=== PATIENT | female | born 1980 | race Caucasian/White ===

== ENCOUNTER 2016-02-20 12:56 | Inpatient (IN) | payer OTHER ==
[~2016-02-20] VITALS: Ht 152.4 cm; Wt 81.6 kg
[~2016-02-20 12:56] MED LIST: DULCOLAX5 MG PO; FOLIC ACID1 M1 PO; METHADONE HC10 MG/M1 PO; METHADONE10 MG/5 M2 PO; MIRALAX17 GM PO; ONDANSETRON ODT8 MG PO; PRENATAL TABLE1 EAC2 PO; PRENATAL1 TA2 PO; REMERON30 M1 PO; TOPAMAX100 MG PO; VISTARIL50 M1 PO; VISTARIL50 MG PO; VITAMIN D31000 UNI1 PO; WELLBUTRIN XL150 M2 PO; WELLBUTRIN XL150 MG PO; WELLBUTRIN XL300 M2 PO; WELLBUTRIN XL300 MG PO
--- NOTE | 2016-02-20 13:06 | NUR ---
PT STATES SHE IS STARTING TO FEEL SI SHE STATES YOU WERE SOBER FOR 8 MONTHS AND SHE HAS A 3 MONTH OLD BABY. SHE HAD TO MOVE IN WITH THE BABY'S FATHER BECAUSE INSURANCE WOULDN'T COVER THE LONG TERM HOUSE. STATES SHE STARTED DOING CRACK, BENZOS BECAUSE HE STILL GETS HIGH. PT STATES BABY IS WITH HER PARENTS. STATES HER PLAN IS TO OD WITH BENZOS AND METHADONE. COMMITS TO SAFETY WHILE IN THE ED.
--- NOTE | 2016-02-20 13:18 | ED PSYCHIATRIC COMPLAINT ---
History of Present Illness General Chief Complaint: Psychiatric Related Complaint Stated Complaint: +SI Source: patient Exam Limitations: no limitations Vital Signs & Intake/Output Vital Signs & Intake/Output Vital Signs Date Time Temp Pulse Resp B/P Pulse O2 O2 Flow FiO2 Ox Delivery Rate 02/19 2039 97.0 81 18 125/72 02/20 2028 97.0 81 125/72 02/19 1906 98.6 79 16 102/50 100 Room Air 02/19 1659 96.9 64 16 90/51 02/19 1541 96.2 76 16 90/51 97 Room Air 02/19 1306 97.7 87 20 104/65 98 Room Air Allergies Coded Allergies: trazodone (Intermediate, NIGHTMARES 05/30/15) aripiprazole (From Abilify) (STRANGE MENTAL FEELING 05/30/15) Triage Note: PT STATES SHE IS STARTING TO FEEL SI SHE STATES YOU WERE SOBER FOR 8 MONTHS AND SHE HAS A 3 MONTH OLD BABY. SHE HAD TO MOVE IN WITH THE BABY'S FATHER BECAUSE INSURANCE WOULDN'T COVER THE NURSING HOME HOUSE. STATES SHE STARTED DOING CRACK, BENZOS BECAUSE HE STILL GETS HIGH. PT STATES BABY IS WITH HER PARENTS. STATES HER PLAN IS TO OD WITH BENZOS AND METHADONE. COMMITS TO SAFETY WHILE IN THE ED. Triage Nurses Notes Reviewed? yes Onset: Abrupt Duration: constant Timing: recent history Severity: severe Severity Numbers: 10 : No Patient currently breastfeeds: No HPI: Patient is a 35-year-old female with a past medical history of benzodiazepine abuse and suicide ideation anxiety depression who presents emergency room for concerns of suicide ideation in which she states that she has been sober from benzodiazepines for approximately 8 months however in the last month she began to buy off the streets in which she is presently taking 50 mg a day. Patient recently gave to a 3-month-old and which currently patient is residing at the baby's father's residence because of an insurance issue with the previous residency of a [facility] house. She states she started doing crack and benzodiazepines to get high however patient states that she wants to overdose on pills to kill herself. Denies any homicidal ideation and visual hallucinations or auditory hallucinations. Denies any illness. Patient states that the 3-year -old daughter is currently at her parents house and is safe (AMANDA RUEDA) Reconcile Medications Butalb/Acetaminophen/Caffeine (Fioricet 50-300-40 MG Capsule) (Unknown Strength) CAPSULE 1-2 CAP PO PRN MIGRAINES (Reported) Escitalopram Oxalate (Lexapro) 20 MG TABLET 1 TAB PO DAILY MENTAL HEALTH ( Reported) Hydroxyzine Pamoate (Vistaril) 50 MG CAPSULE 2-3 CAP PO QPM ANXIETY/SLEEP ( Reported) Lisdexamfetamine Dimesylate (Vyvanse) 70 MG CAPSULE 1 CAP PO QAM ADD ( Reported) Methadone HCl 5 MG/5 ML SOLUTION 175 MG PO DAILY MENTAL HEALTH (Reported) (JULIETTE RODRÍGUEZ,HAILEY) Past History Travel History Traveled to [place] past 21 day No Medical History Any Pertinent Medical History? 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 Relation not specified for: FH: depression Hx Contributory? No (AMANDA RUEDA) Review of Systems Review of Systems Constitutional: Reports: no symptoms. EENTM: Reports: no symptoms. Respiratory: Reports: no symptoms. Cardiovascular: Reports: no symptoms. GI: Reports: no symptoms. Genitourinary: Reports: no symptoms. Musculoskeletal: Reports: no symptoms. Skin: Reports: no symptoms. Neurological/Psychological: Reports: see HPI, depressed. Hematologic/Endocrine: Reports: no symptoms. Immunologic/Allergic: Reports: no symptoms. All Other Systems: Reviewed and Negative (AMANDA RUEDA) Physical Exam Physical Exam General Appearance: no apparent distress, alert Neurological/Psychiatric: no motor/sensory deficits, awake, agitated, alert Appearance/Memory/Insight: appropriate appearance, appropriate insight, denies illness, disheveled Behavoir/Eye Contact/Speech: cooperative, normal speech, good eye contact Thoughts/Hallucinations: no apparent hallucination Comments: Well-developed well-nourished person in no acute distress HEENT: Normal EENT exam, extraocular motion intact, no nystagmus. Pupils equally round and reactive to light. Nose is atraumatic. External auditory canal and Tympanic membranes clear. Pharynx normal. No swelling or edema. Neck: Supple, no lymphadenopathy, normal range of motion without pain or tenderness Back: Nontender, no CVA tenderness. Full range of motion Cardiovascular: Regular rate and rhythms no murmurs, normal JVP Respiratory: Chest nontender. No respiratory distress. Breath sounds clear to auscultation bilaterally Abdomen: Soft, nontender nondistended, no appreciable organomegaly. Normal bowel sounds. No ascites Extremity: No edema, no calf tenderness to palpation, normal and equal pulses. Neuro: Alert oriented x3, motor sensory normal, cranial nerves II through XII grossly intact. Skin: No appreciable rash on exposed skin, skin is warm and dry. Psych: Mood and affect is normal, memory and judgment is normal. SAD PERSONS SAD PERSONS Response Value Depression/Hopelessness? yes 2 Previous Attempts/Psych Care yes 1 Excessive Ethanol/Drug Use? yes 1 Single//? yes 1 Organized/Serious Attempt yes 2 Total 7 SAD PERSONS Done? yes (GREZGORZ CUENCA,AMANDA) Progress Differential Diagnosis: dementia, drug intoxication, drug overdose, drug withdrawal, electrolyte abnormality, encephalitis, hypoglycemia, hypothyroidism, IC hem/mass/tumor, meningitis Plan of Care: Orders Procedure Date/time Status Regular Diet 02/20 B Active Vital Signs 02/19 2015 Active Inpt Psych Teach/Educate 02/19 2015 Active Nutritional Intake, Monitor 02/19 2015 Active Inpt Psych Auricular Acupunctu 02/19 2015 Active EKG 02/19 162 Active Lab Add-on Test 02/19 1620 Active Patient Data - inpatient psych 02/19 1617 Active Admit to inpatient psych 02/19 1617 Active THYROID STIMULATING HORMONE 02/19 1515 Complete Continuous Observation Monitor 02/19 1318 Complete URINE DRUGS OF ABUSE 02/19 1318 Complete URINE 02/19 1318 Complete URINALYSIS 02/19 1318 Complete ETHANOL 02/19 1318 Complete COMPREHENSIVE METABOLIC PANEL 02/19 1318 Complete CBC WITHOUT DIFFERENTIAL 02/19 1318 Complete ED CRISIS PSYCH CONSULT 02/19 1318 Active Intake & Output 02/19 1300 Complete Vital Signs 02/19 UNK Active Nursing Misc 02/19 UNK Active CIWA 02/19 UNK Active Alternative Nursing Therapy 02/19 UNK Active Activity/Ambulation 02/19 UNK Active Current Medications Sig/Amanuel Start time Last Medication Dose Stop Time Status Admin Escitalopram Oxalate 10 MG 0802/20 0800 AC (Lexapro) Methadone HCl 175 MG DAILY@0800 02/20 0800 UNVr (Dolophine) Multivitamins 1 TAB DAILY@02/20 0800 AC (Theragran Vitamins) Acetaminophen 650 MG Q6P PRN 02/19 1630 AC (Tylenol) Al Hydroxide/Mg 30 ML Q4-6 PRN PRN 02/19 1630 AC Hydroxide (Maalox Plus) Hydroxyzine HCl 50 MG Q6P PRN 02/19 1630 AC (Atarax) Lorazepam 2 MG Q2P PRN 02/19 1630 AC (Ativan) Magnesium Hydroxide 30 ML AT BEDTIME PRN 02/19 1630 AC (Milk Of Magnesia) Laboratory Tests 02/20/16 1515: Anion Gap 9, Estimated GFR > 60, BUN/Creatinine Ratio 11.1, Glucose 115 H, Calcium 9.3, Total Bilirubin 0.3, AST 24, ALT 33, Alkaline Phosphatase 87, Total Protein 6.8, Albumin 3.9, Globulin 2.9, Albumin/Globulin Ratio 1.3, TSH 0.523, CBC w Diff NO MAN DIFF REQ, RBC 4.58, MCV 80.2 L, MCH 26.4 L, RDW 17.4 H, MPV 7.2 L, Gran % 62.3, Lymphocytes % 31.6, Monocytes % 5.1, Eosinophils % 0.4, Basophils % 0.6, Absolute Granulocytes 5.0, Absolute Lymphocytes 2.6, Absolute Monocytes 0.4, Absolute Eosinophils 0, Absolute Basophils 0.1, PUBS MCHC 32.9 L , Serum Alcohol < 10.0 02/20/16 1500: Urine Opiates Screen < 100.00, Methadone Screen > 735 H, Barbiturate Screen > 800 H, Ur Phencyclidine Scrn 15.00, Amphetamines Screen > 1450 H, U Benzodiazepines Scrn 412 H, Urine Cocaine Screen > 1000 H, Urine Cannabis Screen < 5.00, Urinalysis LIGHT H, Urine Color YEL, Urine Clarity HAZY H, Urine pH 6.0, Ur Specific [place] >= 1.030, Urine Protein TRACE H, Urine Ketones TRACE H, Urine Nitrite NEG, Urine Bilirubin NEG@ICTO, Urine Urobilinogen 0.2, Ur Leukocyte Esterase NEG, Ur Microscopic SEDIMENT EXAMINED, Urine RBC RARE, Urine WBC 1-3 H, Ur Epithelial Cells FEW, Urine Mucus MANY H, Urine Hemoglobin TRACE-INTACT, Urine Glucose NEG, Urine Test NEGATIVE Crisis management team evaluated patient will be admitted to Inpatient Psychiatry for depression (AMANDA RUEDA) Initial ED EKG: NSR (HAILEY SEGOVIA MD) Departure Departure Disposition: STILL A PATIENT Condition: Critical Clinical Impression Primary Impression: Depression Referrals: PATIENT HAS NO PRIMARY CARE DR (PCP/Family) Referred to [facility] as new patient No Departure Forms: Customer Survey General Discharge Information Psych Admission Note Psychiatric Admission: I have seen and evaluated GIANNA BARKSDALE. I have also reviewed all the pertinent lab results and diagnostic results. GIANNA BARKSDALE will be admitted to our inpatient Psychiatric unit for treatment and care. (AMANDA RUEDA) PA/PATENT PROSECUTION ATTORNEY Co-Sign Statement Statement: ED Attending supervision documentation- [] I saw and evaluated the patient. I have also reviewed all the pertinent lab results and diagnostic results. I agree with the findings and the plan of care as documented in the PA's/PATENT PROSECUTION ATTORNEY's documentation. [X] I have reviewed the ED Record and agree with the PA's/PATENT PROSECUTION ATTORNEY's documentation. [] Additions or exceptions (if any) to the PAs/PATENT PROSECUTION ATTORNEY's note and plan are summarized below: [] (HAILEY SEGOVIA MD) Critical Care Note Critical Care Note Critical Care Time: 30-74 min (AMANDA RUEDA)
--- NOTE | 2016-02-20 13:30 | NUR ---
PT CALM AND COOPERATIVE, SITTER REMAINS AT DOORWAY, AMANDA CUENCA IN TO EVAL.
--- NOTE | 2016-02-20 14:21 | NUR ---
(1) valuables bag given to RN/Pod II and (2) clothes bags locked in closet.
--- NOTE | 2016-02-20 15:11 | NUR ---
URINE TRIO SENT TO LAB.
--- NOTE | 2016-02-20 15:20 | NUR ---
BLOODWORK SST, LAV.
[2016-02-20 15:24] LABS: ABSOLUTE BASOPHIL COUNT 0.1 /CUMM (0.0-0.2); ABSOLUTE EOSINOPHIL COUNT 0 /CUMM (0.0-0.7); ABSOLUTE LYMPH COUNT 2.6 /CUMM (1.2-3.4); ABSOLUTE MONOCYTE COUNT 0.4 /CUMM (0.10-0.60); BASOPHIL % 0.6 % (0.0-2.0); EOSINOPHIL % 0.4 % (0-5); GRANULOCYTE % 62.3 % (42.2-75.2); HEMATOCRIT 36.7 % (37-47); MEAN CORPUSCULAR HGB 26.4 PG (27.0-31.0); MEAN CORPUSCULAR HGB CONC 32.9 G/DL (33.0-37.0); MEAN CORPUSCULAR VOLUME 80.2 FL (81.0-99.0); MEAN PLATELET VOLUME 7.2 FL (7.4-10.4); PLATELET COUNT 243 /CUMM (130-400); RBC DISTRIBUTION WIDTH 17.4 % (11.5-14.5); RED BLOOD CELL CT 4.58 /CUMM (4.20-5.40); WHITE BLOOD CELL COUNT 8.1 /CUMM (4.8-10.8)
--- NOTE | 2016-02-20 16:40 | NUR ---
MST TO BEDSIDE TO DO EKG.
[2016-02-20] MEDS ORDERED: VYVANSE70 M1 PO (16:43)
[2016-02-20] MEDS ORDERED: LEXAPRO20 M1 PO (16:43)
[2016-02-20] MEDS ORDERED: FIORICET 50-301 EACH PO (16:44)
[2016-02-20] MEDS ORDERED: METHADONE H5 MG/5 M2 PO (16:45)
--- NOTE | 2016-02-20 16:55 | NUR ---
PT WALKING AROUND AREA WITH SITTERS ESCORTING, DENIES ANY NEEDS CURRENTLY, WILL CTM FOR BENZO WITHDRAWAL.
[2016-02-20 16:59] VITALS: BP 90/51
--- NOTE | 2016-02-20 17:01 | ED PSYCH CRISIS CONSULTATION ---
Crisis Consult Basic Assessment Date of Consult: 02/20/16 Responsible Person/Accompanied By: self Insurance Authorization: Insurance #1: Insurance name: [employer] Phone number: Policy number: [id number] Group number: Authorization number: ED Provider: Patient's ED Provider: AMANDA RUEDA Primary Care Physician: Patient's PCP: PATIENT HAS NO PRIMARY CARE DR PCP's Phone Number: Current Psychiatrist: Jazmin El APRN [phone] Chief Complaint: Psychiatric Related Complaint Patient's Quote: i'm feeling sad and really depressed since i relapsed Present Illness: Pt is a 35 yo female presenting to [place] ED this afternoon with reports of increased depression, SI and substance abuse. Pt reports 8 months sobriety prior to relapse of benzos and crack cocaine 3 weeks ago. Pt reports thoughts to o/d on benzos and not wake up. Pt has had [facility] since 2013/last being may 2015 for similiar SI and polysubstance abuse. Pt reports being prescribed lexapro, vyvanse, vistaril and methodone by jazmin El APRN [phone]. pt reports following may 2015 [facility] discharge she was [facility] then [facility] but reports insurance wouldn't cover any longer so she ended up back living with her children's father was is a substance abuser and she relapsed. she reports smoking crack cocaine and daily benzos 15-20mg/day past 3 weeks. Pt reports wanting help with her depression and to stop using drugs. She presents as depressed, OX3, lethargic though easy to engage and cooperative Patient's Address: [address] [place] [address] Other Phone Number: Who Do You Live With? Friend (father of younger children) Family/Informants Interviewed: collateral provided by mother Tomas [phone]. She reports Pt's 3 children (ages 15, 2 and 3 months0 are in her care and doing well. She reports DCF worker is tiburcio Contreras [phone]. Allergies - Coded Allergies: trazodone (Intermediate, NIGHTMARES 05/30/15) aripiprazole (From Abilify) (STRANGE MENTAL FEELING 05/30/15) Current Medications - Scheduled Medications Escitalopram Oxalate (Lexapro) 20 MG TABLET 1 TAB PO DAILY MENTAL HEALTH ( Reported) Entered as Reported by TERESA CORDOVA on 02/20/16 1643 Hydroxyzine Pamoate (Vistaril) 50 MG CAPSULE 2-3 CAP PO QPM ANXIETY/SLEEP ( Reported) Entered as Reported by TERESA CORDOVA on 05/30/15 2243 Lisdexamfetamine Dimesylate (Vyvanse) 70 MG CAPSULE 1 CAP PO QAM ADD ( Reported) Entered as Reported by TERESA CORDOVA on 02/20/16 1643 Methadone HCl 5 MG/5 ML SOLUTION 175 MG PO DAILY MENTAL HEALTH (Reported) Entered as Reported by TERESA CORDOVA on 02/20/16 1645 Scheduled PRN Medications Butalb/Acetaminophen/Caffeine (Fioricet 50-300-40 MG Capsule) (Unknown Strength) CAPSULE 1-2 CAP PO PRN MIGRAINES (Reported) Entered as Reported by TERESA CORDOVA on 02/20/16 1644 Laboratory Results: Laboratory Tests 02/20/16 1515: Anion Gap 9, Estimated GFR > 60, BUN/Creatinine Ratio 11.1, Glucose 115 H, Calcium 9.3, Total Bilirubin 0.3, AST 24, ALT 33, Alkaline Phosphatase 87, Total Protein 6.8, Albumin 3.9, Globulin 2.9, Albumin/Globulin Ratio 1.3, TSH Pending, CBC w Diff NO MAN DIFF REQ, RBC 4.58, MCV 80.2 L, MCH 26.4 L, RDW 17.4 H, MPV 7.2 L, Gran % 62.3, Lymphocytes % 31.6, Monocytes % 5.1, Eosinophils % 0.4, Basophils % 0.6, Absolute Granulocytes 5.0, Absolute Lymphocytes 2.6, Absolute Monocytes 0.4, Absolute Eosinophils 0, Absolute Basophils 0.1, PUBS MCHC 32.9 L , Serum Alcohol < 10.0 02/20/16 1500: Urine Opiates Screen < 100.00, Methadone Screen > 735 H, Barbiturate Screen > 800 H, Ur Phencyclidine Scrn 15.00, Amphetamines Screen > 1450 H, U Benzodiazepines Scrn 412 H, Urine Cocaine Screen > 1000 H, Urine Cannabis Screen < 5.00, Urinalysis LIGHT H, Urine Color YEL, Urine Clarity HAZY H, Urine pH 6.0, Ur Specific [place] >= 1.030, Urine Protein TRACE H, Urine Ketones TRACE H, Urine Nitrite NEG, Urine Bilirubin NEG@ICTO, Urine Urobilinogen 0.2, Ur Leukocyte Esterase NEG, Ur Microscopic SEDIMENT EXAMINED, Urine RBC RARE, Urine WBC 1-3 H, Ur Epithelial Cells FEW, Urine Mucus MANY H, Urine Hemoglobin TRACE-INTACT, Urine Glucose NEG, Urine Test NEGATIVE Past History Past Medical History Neurological: NONE, migraine EENT: NONE Cardiovascular: NONE Respiratory: NONE Gastrointestinal: NONE, constipation Hepatic: NONE Renal: NONE Musculoskeletal: NONE Psychiatric: depression, insomnia, opioid dependence, substance abuse, METHADONE MAINTENANCE Endocrine: NONE Blood Disorders: NONE Cancer(s): NONE 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 Physical Limitations (Interventions): None identified Psychiatric Treatment History Psych Treatment Psychiatric Treatment Yes Inpatient Treatment Yes Outpatient Treatment Yes Location of Treatment [place] [id number] since 2013 Reason for Treatment depression/SI/polysubstance abuse Response to Treatment most recently had 8 mos sobriety Diagnosis by History: Depression, polysubstance abuse Substance Use/Abuse History Drug Use/Abuse 1 Substances Used/Abused Yes Substance Used/Abused Benzodiazepines Last Used today How much used/taken 15-20mg/day How often daily For how long past 3 weeks Drug Use/Abuse 2 Substances Used/Abused Yes Substance Used/Abused Cocaine Drug Use/Abuse 3 Substances Used/Abused Yes Substance Used/Abused Prescribed Opiates Last Used today How much used/taken 175 mg How often daily Substance Abuse Treatment Substance Abuse Treatment Past Substance Abuse [place] Yes Inpatient Treatment Yes Outpatient Treatment Yes Location of Treatment most recent [facility] Response to Treatment 8 months of recent sobriety until having to move back in with who is a drug user Comments: reports 15 - 20 mgs benzos past 3 weeks. also reports recent crack use. Current Mental Status Mental Status Orientation: Person, Place, Situation Affect: Depressed Speech: WNL Neuro-vegetative: Concentration Poor, Energy Decreased, Helpless, Loss of Interest, Sleep Disturbance Appearance Appearance- Dress/Hygiene: hospital gown. laying in bed with hands shielding her eyes because she stated lights were giving her a headache. Behaviors Thought Process: WNL Thought Content: WNL Memory: WNL Insight: Fair SI/HI Risk Assessment Past Suicidal Ideation/Attempts Yes Current Suicidal Ideation/Att Yes Past Homicidal Ideation/Att: No Current Homicidal Ideation/Attempts No Degree of Intent: Thoughts/No Intent Danger To: Self Gravely Disabled: Inability, Poor Impulse Control, Poor Judgment Risk Factors: high anxiety/distress, history of suicide atmpts, SA/MH hospitalized, substance abuse, poor impulse control Lethality Ratin PTSD Checklist PTSD Done? 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 Departure Disposition Psych Medical Clearance Date: 02/20/16 Medically Cleared at: 1600 Time Started: 1605 Time Ended: 1645 Psychiatrist Consulted: Yobany Pham MD Date Disposition Established: 02/20/16 Time Disposition Established: 1649 Plan for Disposition - Modality: Inpatient Psychiatry Facility: [facility] Rationale for Disposition: PT reports SI by benzo o/d. Pt has a hx of attempts. Pt was sober 8 months prior to relapse on benzos and cocaine. Type of IP Admission: Voluntary Referrals PATIENT HAS NO PRIMARY CARE DR (PCP/Family)
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
--- NOTE | 2016-02-20 19:08 | NUR ---
ATTEMPTED TO CALL REPORT, PER [facility] THEY ARE IN REPORT ADN WILL CALL BACK IN APPROX 20 MINUTES
--- NOTE | 2016-02-20 19:32 | NUR ---
ATTEMPTED TO CALL REPORT AGAIN, [facility]NAL[facility] STILL IN THEIR REPORT, WILL ATTEMPT AGAIN SHORTLY.
--- NOTE | 2016-02-20 19:54 | NUR ---
REPORT GIVEN TO FLORI BREWER NOW
[2016-02-20 20:28] VITALS: BP 125/72
[2016-02-20 20:39] VITALS: BP 125/72
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
[2016-02-21] VITALS (8 sets, daily range): BP systolic 114–132; BP diastolic 71–87
--- NOTE | 2016-02-21 09:46 | NUR ---
PT IS DEMANDING TO RECEIVE "MY ATIVAN".SHE PROCEEDED TO GO FROM ONE STAFF MEMBER TO ANOTHER TO GET THE ANSWER SHE WANTED. IT WAS EXPLAINED TO PT THAT HER TOUR DRIVER WILL BE MEETING WITH HER TODAY..HER FIRST DAY HERE..TO DISCUSS HER MEDS.SHE IS BEING [facility] DID NOT INDICATE THE NEED FOR PRN ATIVAN. PT DEMANDED TO "FILE A GRIEVANCE" SO A CALL WAS PLACED TO PT SAFETY
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
--- NOTE | 2016-02-21 13:51 | CPS MD/APRN INITIAL ASSE PSYCH ---
Psychiatric Admission Accounting System Expert's Note Reviewed: Yes Patient Seen and Examined: Yes Identifying Information: Patient is a 35 year old, single, female. Chief Complaint: "I've been depressed and sad since relapsing 3 weeks ago." Reaction to Hospitalization: "I feel safe here, and have some hope that maybe I'll get things right." History of Present Illness Onset of Illness: Patient is a 35-year old female with a history of multiple prior inpatient psychiatric hospitalizations (last hospitalized on [facility] in May 2015), MDD, Opiate use disorder (on methadone maintenance), Anxiolytic use disorder, Stimulant use disorder, who presented to ED on 02/20/16 reporting increased depression, hopelessness, helplessness, and suicidal ideation in the context of a 3 week relapse on Xanax, Klonopin and crack/cocaine. She reported primary stressors include unstable housing (currently living with ex boyfriend in [place], [place] who using substances and served as a trigger for relapse) and substance use. Following [facility] admission in May 2015, she had been placed at [facility] but reported that her insurance wouldn't cover [facility] which resulted in the patient resuming living with her ex, which led to relapse. Patient reported using up to six 2mg xanax bars daily, and Klonopin (dose and frequency unknown) daily which she had been buying off the street. She reported smoking crack/cocaine once over the last few weeks. She reported motivation to stop using substances so she could "get my sh*t together for my kids." Patient identified her children as protective factors to her sobriety and safety. She denied suicidal ideation, plans and intent on encounter. Circumstances Leading to Admission: Relapse on benzodiazepines (bought off the street) and crack/cocaine; living with ex; unstable housing. Problem(s) Justifying Need for Admission: +SI and thoughts to overdose on benzodiazepines. Past Psychiatric History Past Diagnosis(es)- if any: MDD Bipolar Disorder Hx overdose on benzodiapines ADHD (per patient report) Opioid use disorder, severe (on methadone maintenance) Anxiolytic use disorder, severe Stimulant use disorder, moderate Past Precipitating Factors- if any: substance abuse, housing problems, DCF, limited supports, multiple prior inpatient psychiatric hospitalizations, poor impulse control, treatment nonadherence. - Include inpatient and outpatient treatment Treatment History: Multiple prior inpatient psychiatric hospitalizations: [facility] HAL El APRN (#[phone]) History of Suicide Attempts or Gestures Patient reported a history of suicide attempts, but did not elaborate on method or dates of last attempts. Substance Abuse History: Inpatient Substance Abuse Treatment [facility] Outpatient[facility]Rehab [facility] Alcohol and Drug Treatment [facility] Patient reported daily benzo abuse x last 3 weeks. Reported using approx 6 bars of 2mg Xanax daily and an unknown amount of Klonopin daily which she had bought off the street. She denied a history of withdrawal seizures. She reported using crack/cocaine once over the last 3 weeks. She denied use of alcohol. She reported using Fioricet for migraines, denied overusing this, however utox showed high result for barbs. Patient is additionally on Methadone 175mg daily from [facility]. Allergies: Coded Allergies: trazodone (Intermediate, NIGHTMARES 05/30/15) [facility]razole ([facility] (STRANGE MENTAL FEELING 05/30/15) Home Med List: Vyvanse 70mg every morning Lexapro 20mg every morning Methadone 175mg daily Vistaril 50mg tabs, take 2-3 tabs at HS - Include any medical condition(s) that may - impact the patient's recovery/remission Past Medical History: Patient reported history of migraine. Past History Medical History Neurological: NONE, migraine EENT: NONE Cardiovascular: NONE Respiratory: NONE Gastrointestinal: NONE, constipation Hepatic: NONE Renal: NONE Musculoskeletal: NONE Psychiatric: depression, insomnia, opioid dependence, substance abuse, METHADONE MAINTENANCE Endocrine: NONE Blood Disorders: NONE Cancer(s): NONE RADIATION OFFICER/Reproductive: NONE History of MRSA: No History of VRE: No History of CDIFF: No Isolation History: Standard Surgical History Surgical History: none ( x 2), Psychiatric Family/Social Hx Family History Psychiatric Illness: Patient reported the following family psychiatric illness: Mother- anxiety 15y/o son - ADHD and managed on Concerta Paternal and maternal aunts - depression Substance Use: Patient reported a history of alcohol use disorder in her paternal and maternal aunts. Suicides: Patient denied a known history of suicide attempts within her family. Social History Living Situation: Patient reported currently living with her ex in [place], [place], in his apartment. Significant Relationships (family/friends): Patient identified her parents, and three children as her primary supports. Education: Patient reported highest level of education is 10th grade. She denied earning GED. Vocation/Occupation: Patient reported she has been unemplyed x last 2 years. Legal: Per [place] Judicial site, the patient has multiple legal charges: 2012 - Violation of protective order 2012 - Violation of conditional release (2nd degree) 2009 - [facility] 6th degree 2008 - Disorderly conduct 2005 - [facility] 6th degree Healthly Behaviors Screening Tobacco Screening Tobacco Use from ED Docu: Current Daily Use Daily Tobacco Use Amount/Type: => 5 Cigarettes daily - If tobacco counseling indicated - the following topics are required. - #1 Recognizing dangerous situations. - #2 Coping Skills. - #3 Basic information about quitting. Status of Tobacco Cessation Counseling: #1, #2 AND #3 Completed Cessation Med Status: Nicotine Patch Ordered Alcohol Screening - ETOH screen POS if BAL >=80 or Audit-C>= M4/F3 Audit-C Score from Diag Assess: 0 Blood Alcohol Level: Laboratory Tests 02/19 1515 Toxicology Serum Alcohol (<10 MG/DL) < 10.0 Alcohol Use Screening Results: Neg per Audit C &/or BAL - If ETOH counseling indicated - the following topics are required. - #1 Express concern about the patient's - drinking at unhealthy levels, include informing - of national norms for moderate drinking: - men <= 14 drinks/week, max 4 drinks/occasion - women <= 7 drinks/week, max 3 drinks/occasion - #2 Providing feedback, including linking alcohol to - negative physical effects (liver injury, hypertension) - negative emotional effects (relationship problems and - depression) - negative occupational consequences (reduced work - performance) - #3 Advising the patient to abstain from alcohol or - to drink below national norms for moderate drinking - (as listed above). Status of ETOH Use Counseling: N/A B/C NO ETOH Use Metabolic Screening - Screen if on a Neuroleptic Medication - Metabolic screening should include: - Blood Pressure, BMI, Glucose or Hgb A1c, & a - Lipid profile from within the past 365 days. Metabolic Screening ([X]) Not Applicable, patient not on a neuroleptic. OR () Patient on a neuroleptic(s) . Enter below results for Glucose or Hemoglobin A1C, and lipid panel if obtained during the last 365 days. BMI: 35.100 Blood Pressure: 132/79 Laboratory Results (If applicable): Exam and Plan Mental Status Examination Ambulation Status: Steady and independent. Appearance: Disheveled. Wearing t-shirt and sweatpants. Hair pulled back into messy bun. Sitting with blanket wrapped around her. Attitude towards examiner: Cooperative Psychomotor activity: Fidgety, restless in seat. Behavior: Fidegty, restless. Quality of speech: Normal in rate, tone and volume. Affect: Constricted Mood: "Sad and anxious" Suicidal Ideation: Pt denied Homicidal Ideation: Pt denied Hallucinations: Pt denied Paranoid/Delusional Material: No evidence Difficulties with thought organization: None evident Insight: Limited Judgment: Limited Orientation: A&Ox4. Cognition: WNL Memory Function: Grossly intact Estimate of intellectual functioning: Average Assets/Strengths Patient Identified Assets/Strengths: Supportive parents, motivated for treatment. Impression/Plan Impression and Plan: Patient is a 35 y/o single, female, a mother of three who has a history of multiple prior inpatient psychiatric hospitalizations and extensive substance abuse treatment. Presented to ED with suicidal ideation, hopelessness and helplessness in the context of relapsing three weeks ago on benzos and crack/cocaine. Utox was (+) for cocaine, amphetamines, BZD, barbit, methadone (she is on methadone maintenance at [facility]). She expressing desire for benzo detox and dual dx treatment. She shows limited insight and judgement into psychiatric symptoms and substance use. Reported she had been doing well on current psychotropic medications including Vyvanse 70mg daily, prior to relapsing. It appears relapse was complicated by unstable housing and inability to transition to [facility] due to insurance issue. Unclear if patient's current psychotropic regimen is efficacious on patient's mood. There is no evidence of underlying psychotic procress, and symptoms appear predominently depressed and anxious. 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 Patient scoring low on CIWA protocol and VSS. Given patient's report of high dose benzo use over last 3 weeks, will begin Ativan taper and continue to monitor withdrawal Q4Hrs w/awake on CIWA. - Include all active medical diagnosis that require tx DSM 5 Diagnosis(es): Major Depressive Disorder R/O Bipolar disorder Anxiolytic use disorder, severe Opiate use disorder, severe (on methadone maintenance) Crack/cocaine use disorder, moderate - Initial Tx Plan for Active Psych & Medical Conditions Treatment Plan: 1. Patient will be monitored on the unit for safety, mood, suicidal ideation, and benzodiazepine withdrawal. 2. Start Ativan taper for benzo detox. Monitor patient on CIWA every 4Hrs w/ awake for benzo withdrawal. Utilize prn Ativan for withdrawal. 3. Additional information is needed from collaterals, including her parents, and outpatient [facility] El. Will obtain BETSEY to speak to her. 4. Anticipate once clinically stable, that the patient will be discharged to a stable environment and be referred to Dual Dx IOP or inpatient substance abuse rehab level of care. 5. H&P per hospitalist team. - Factors that would help patient function - in a less restrictive setting. Factors: Alleviation of suicidal ideation. Mood stabilization. Benzo detox.
--- NOTE | 2016-02-21 15:01 | Cons- Medical ---
General Information and HPI Consulting Request Date of Consult: 02/21/16 Requested By: MOIRA BLACKWELL MD Reason for Consult: Medical H&P Source of Information: patient, old records Exam Limitations: no limitations History of Present Illness: 35-year-old female past medical history of substance abuse and chronic opiate dependence on methadone, depression, migraine and suicidality in the past. She is here she says because she relapsed recently and is on a benzo taper and is dealing with depressive symptoms. Right now she is complaining of a migraine and says the light bothers her. She says this feels like her usual migraine. There is no fever, no neck stiffness, she is slightly nauseous but hasn't vomited. She says this happens to her when she is withdrawing. She was initially requesting Fioricet but I explained to her the controlled substance policy and she is willing to try some Imitrex. She has tried Imitrex in the past with limited results. She takes about 2-3 Fioricets a month she says. Allergies/Medications Allergies: Coded Allergies: trazodone (Intermediate, NIGHTMARES 05/30/15) aripiprazole (From [facility]) (STRANGE MENTAL FEELING 05/30/15) Home Med List: Butalb/Acetaminophen/Caffeine (Fioricet 50-300-40 MG Capsule) (Unknown Strength) CAPSULE 1-2 CAP PO PRN MIGRAINES (Reported) Escitalopram Oxalate (Lexapro) 20 MG TABLET 1 TAB PO DAILY MENTAL HEALTH ( Reported) Hydroxyzine Pamoate (Vistaril) 50 MG CAPSULE 2-3 CAP PO QPM ANXIETY/SLEEP ( Reported) Lisdexamfetamine Dimesylate (Vyvanse) 70 MG CAPSULE 1 CAP PO QAM ADD ( Reported) Methadone HCl 5 MG/5 ML SOLUTION 175 MG PO DAILY MENTAL HEALTH (Reported) Current Medications: Current Medications Sig/Amanuel Start time Last Medication Dose Route Stop Time Status Admin Acetaminophen 650 MG Q6P PRN 02/19 1630 AC PO Al Hydroxide/Mg 30 ML Q4-6 PRN PRN 02/19 1630 AC Hydroxide PO Escitalopram Oxalate 10 MG 0800 02/20 0800 AC 02/20 PO 0815 Hydroxyzine HCl 50 MG Q6P PRN 02/19 1630 AC PO Lorazepam 0.5 MG 0800,2200 02/24 0800 AC PO 02/24 2201 Lorazepam 0.5 MG Q6 02/23 0600 AC PO 02/23 2359 Lorazepam 1 MG Q8 02/22 0600 AC PO 02/22 220 Lorazepam 1 MG 0800,1200,1600,2000 02/21 0800 AC PO 02/21 2001 Lorazepam 1.5 MG 1430,2200 02/20 1430 AC 02/20 PO 02/20 2201 1421 Lorazepam 2 MG Q2P PRN 02/19 1630 AC 02/19 PO 2254 Lorazepam 1 MG Q2P PRN 02/19 1630 AC 02/19 PO 2037 Magnesium Hydroxide 30 ML AT BEDTIME PRN 02/19 1630 AC PO Methadone HCl 175 MG DAILY@02/20 0800 AC 02/20 PO 0840 Multivitamins 1 TAB DAILY@0800 02/20 0800 AC 02/20 PO 0815 Nicotine 7 MG 0802/21 08 AC TOP Sumatriptan Succinate 25 MG ONCE ONE 02/20 1445 DC PO 02/20 1446 Review of Systems Review of Systems Constitutional: Denies: no symptoms, chills, diaphoresis. Cardiovascular: Denies: no symptoms, chest pain, edema. Respiratory: Denies: no symptoms, cough, hemoptysis, orthopnea. Genitourinary: Denies: discharge, dysuria. Neurological/Psychological: Reports: no symptoms, headache. All Other Systems: Reviewed and Negative Past History Travel History Traveled to [place] past 21 day No Medical History Neurological: NONE, migraine EENT: NONE Cardiovascular: NONE Respiratory: NONE Gastrointestinal: NONE, constipation Hepatic: NONE Renal: NONE Musculoskeletal: NONE Psychiatric: depression, insomnia, opioid dependence, substance abuse, METHADONE MAINTENANCE Endocrine: NONE Blood Disorders: NONE Cancer(s): NONE TELETYPEWRITER INSTALLER/Reproductive: NONE Surgical History Surgical History: Family History Relations & Conditions If Any: FATHER (DM). Relation not specified for: FH: depression Psychosocial History Where Do You Live? Home Who Do You Live With? self Services at Home: None Primary Language: [place] ETOH Use: denies use Illicit Drug Use: denies illicit drug use Other Social History: She has 3 children one aged 15 one age 2 and one aged 3 months. She's had 3 C- sections most recently on November 06. She says she used to be a heavy drug user but now is on methadone maintenance treatment program. Functional Ability ADLs Independent: dressing, eating, toileting, bathing. Ambulation: independent IADLs Independent: shopping, housework, finances, food prep, telephone, transportation. Exam & Diagnostic Data Last 24 Hrs of Vital Signs/I&O Vital Signs Date Time Temp Pulse Resp B/P Pulse O2 O2 Flow FiO2 Ox Delivery Rate 02/20 1232 75 132/79 02/20 1224 75 132/79 02/20 0813 98.0 75 114/75 02/20 0811 98.0 75 114/75 02/19 203 97.0 81 18 125/72 02/20 2028 97.0 81 125/72 02/19 1906 98.6 79 16 102/50 100 Room Air 02/19 1659 96.9 64 16 90/51 02/19 1541 96.2 76 16 97 Room Air Intake & Output 02/20 1600 02/20 0800 02/20 0000 Intake Total Output Total Balance Patient 180 lb Weight Physical Exam General Appearance: well developed/nourished, alert, awake, anxious Head: atraumatic, normal appearance Eyes: Bilateral: normal appearance, PERRL, EOMI. Ears, Nose, Throat: normal pharynx, normal ENT inspection Neck: supple, full range of motion Respiratory: normal breath sounds, chest non-tender Cardiovascular: regular rate/rhythm Gastrointestinal: normal bowel sounds, soft, non-tender, no organomegaly Back: normal inspection, normal range of motion Extremities: normal inspection, normal capillary refill, normal range of motion, no edema Neurologic/Psych: no motor/sensory deficits, awake, alert, oriented x 3, normal gait, electric organ assembler and checker II-XII nml as tested, motor/sensory deficits Other Physical Findings: My limited fundus exam, the disc margins appear sharp. Last 24 Hrs of Labs/Charanjit: Laboratory Tests 02/20/16 1515: Anion Gap 9, Estimated GFR > 60, BUN/Creatinine Ratio 11.1, Glucose 115 H, Calcium 9.3, Total Bilirubin 0.3, AST 24, ALT 33, Alkaline Phosphatase 87, Total Protein 6.8, Albumin 3.9, Globulin 2.9, Albumin/Globulin Ratio 1.3, TSH 0.523, CBC w Diff NO MAN DIFF REQ, RBC 4.58, MCV 80.2 L, MCH 26.4 L, RDW 17.4 H, MPV 7.2 L, Gran % 62.3, Lymphocytes % 31.6, Monocytes % 5.1, Eosinophils % 0.4, Basophils % 0.6, Absolute Granulocytes 5.0, Absolute Lymphocytes 2.6, Absolute Monocytes 0.4, Absolute Eosinophils 0, Absolute Basophils 0.1, PUBS MCHC 32.9 L , Serum Alcohol < 10.0 02/20/16 1500: Urine Opiates Screen < 100.00, Methadone Screen > 735 H, Barbiturate Screen > 800 H, Ur Phencyclidine Scrn 15.00, Amphetamines Screen > 1450 H, U Benzodiazepines Scrn 412 H, Urine Cocaine Screen > 1000 H, Urine Cannabis Screen < 5.00, Urinalysis LIGHT H, Urine Color YEL, Urine Clarity HAZY H, Urine pH 6.0, Ur Specific [place] >= 1.030, Urine Protein TRACE H, Urine Ketones TRACE H, Urine Nitrite NEG, Urine Bilirubin NEG@ICTO, Urine Urobilinogen 0.2, Ur Leukocyte Esterase NEG, Ur Microscopic SEDIMENT EXAMINED, Urine RBC RARE, Urine WBC 1-3 H, Ur Epithelial Cells FEW, Urine Mucus MANY H, Urine Hemoglobin TRACE-INTACT, Urine Glucose NEG, Urine Test NEGATIVE Assessment/Plan Assessment/Plan 35-year-old female with chronic opiate dependence, substance abuse and depression and migraines here with acute benzo withdrawal. Treatment as per psychiatry. Use Imitrex 25 mg orally for migraine headache. I confirmed with pharmacy that it's safe to use that. Treatment of depressive symptoms per psychiatry. Problem List: 1. Substance abuse 2. Depression 3. Heroin abuse Consult Acknowledgment - Thank you for your consult request.
--- NOTE | 2016-02-21 15:01 | NUR ---
PT SPENT MOST OF TODAY IN BED. SHE WAS MED SEEKING AT TIMES AND IRRITABLE. SHE C/O HEADACHE AND WAS SEEN BY DR RODGERS FOR H&P.PT DENIES ANY SUICIDAL THOUGHTS OR THOUGHTS OF SELF HARM AT THIS TIME
--- NOTE | 2016-02-21 16:26 | SOCIAL WORKER PROG NOTE PSYCH ---
Social Work Progress Note Progress Note Met with patient for the first time today. We met briefly and patient offerred no complaints at present. She denied any SI/HI/AH/VH. She reported feeling tired and was sleeping off and on throughout the day. She appeared to be isolating on the unit, not socializing with peers and not attending groups. I did not mention arranging a family meeting today with patient due to short encounter and patient appearing somewhat sedated and lethargic during our meeting.
--- NOTE | 2016-02-21 21:21 | NUR ---
PT IS STABLE WITH FLAT AFFECT. PT IS ISOLATIVE AND WITHDRAWN TO PT ROOM AND HAS BEEN SLEEPING THE ENTIRE SHIFT-- OOB FOR VS/MEDS/DINNER. PT REPORTS FEELINGS OF ANXIETY AND A HEADACHE BUT HAS NOT SCORED ON CIWA THIS SHIFT. PT DID NOT ATTEND WRAP UP GROUP. MINIMAL TO NO INTERACTION WITH PEERS/ONLY INTERACTS WITH STAFF WHEN REQUESTING MEDICATIONS. VS ARE STABLE AND PT DENIES ANY SI/HI TO THIS MHW.
[2016-02-22] VITALS (8 sets, daily range): BP systolic 114–141; BP diastolic 58–75
--- NOTE | 2016-02-22 05:31 | NUR ---
PATIENT SLEPT ALL NIGHT.
--- NOTE | 2016-02-22 14:24 | NUR ---
PT IS VERY MED FOCUSED.HER GOAL IN GROUP WAS TO TALK TO SMEONE ABOUT HER MEDS. SHE ASKED NUMEROUS TIMES IF SHE WAS DUE FOR "MY ATIVAN"..SHE IS SOMATIC AND IS ENCOURAGED TO FOCUS ON EFFECTIVE WAYS TO COPE.PT DENIES ANY SUICIDAL THOUGHTS
--- NOTE | 2016-02-22 15:45 | CP SOUTH PROGRESS NOTE PSYCH ---
Psych (Inpt) Progress Note Progress Note Include the following elements, when applicable: Involvement in the active treatment of the patient with behavioral observations of the patient and the patient's response to the treatment. Review of the ongoing treatment process in the context of the treatment plan. Indication of how multi-disciplinary staff members are carrying out the treatment plan. Plans for future interventions and recommendations for revision of the treatment plan. Liaison with other physicians/providers. Progress Note: Medication list reviewed. Case and treatment plan discussed in team meeting. Patient seen at 1:18 pm. She was asleep in her room but was easily awakened and met with me in office. Complains of nausea and I will order Zofran prn. Wants Vyvanse restarted. I explained that she is on multiple controlled medications and we will hold off on it. Keeps her eyes closed for the most part, complaining of light sensitivity and headache. States she took Tylenol. Very argumentative about Vyvanse. Mood: "very aggravated." Sad 09/02. Anxiety . Feels hopeless, helpless, worthless and guilty. Reports SI, "just wanting to take a bunch of benzos, fall asleep and not wake up." Gives a safety promise for here. Denies HI, AH, VH and PI. Ox3 except gave the date as 02/21/16. Reports sleeping but being very tired off the Vyvanse. Appetite: okay, episodically hungry. Energy: none. IMPRESSION: Slow progress. Continue present treatment plan. Similar to prior presentations. Has no insight into the magnitude of her substance abuse, its risks and sequelae.
--- NOTE | 2016-02-22 21:53 | NUR ---
PT IS ISOLATIVE IN ROOM SLEEPING FOR MOST OF THE SHIFT. PT DID NOT ATTEND WRAP UP OR AA. PT MOOD IS STABLE WITH A FULL RANGE AFFECT. PT CAN BE A LITTLE DEMANDING WITH MEDS AND WANTS THEM WHEN SHE ASKS FOR THEM. PT DENIES SI. NO CIWA SCORE
--- NOTE | 2016-02-23 04:48 | NUR ---
WENT TO BED VERY EARLY SLEPT THROUGH.
[2016-02-23 07:39] VITALS: BP 138/66
[2016-02-23 07:47] VITALS: BP 138/66
--- NOTE | 2016-02-23 10:44 | SOCIAL WORKER PROG NOTE PSYCH ---
Social Work Progress Note Progress Note Met with patient today to explore placement options, pt peseverating over vivance and how she wants to get back on those meds. Pt states she is interested in going to [facility] in [place], I called to inquire about screening and admissions there is a 3 month wait list. the fax # is [phone] if this of interest she will need a PPD and all the other usual documentation faxed/ I faxed everything but the PPD. Pt had her eyes closed and was rambling, and became forgetful during our conversation. Referrals will be made to [facility] and [facility] pt given information to contact Roni at [facility] in [place]. All the above places do not have beds until next week, possibly Friday. Approached the idea of an overflow fdc, and pt states if she has to go to a fdc she would return to her children fathers home, then offering this would not be a great plan due to his consistent drug use.
[2016-02-23 12:15] VITALS: BP 122/79
[2016-02-23 12:55] VITALS: BP 122/79
--- NOTE | 2016-02-23 13:26 | CP SOUTH PROGRESS NOTE PSYCH ---
Psych (Inpt) Progress Note Progress Note Include the following elements, when applicable: Involvement in the active treatment of the patient with behavioral observations of the patient and the patient's response to the treatment. Review of the ongoing treatment process in the context of the treatment plan. Indication of how multi-disciplinary staff members are carrying out the treatment plan. Plans for future interventions and recommendations for revision of the treatment plan. Liaison with other physicians/providers. Progress Note: [I discussed this patient's progress to date, current mental status, treatment process in the context of the treatment plan, and discharge planning with staff/ team in the daily morning inpatient team meeting. I also met with the patient myself in individual session.] SUBJECTIVE: "I want my Vyvanse, why won't you give it to me?" OBJECTIVE: Current Medications Sig/Amanuel Start time Last Medication Dose Route Stop Time Status Admin Acetaminophen 650 MG Q6P PRN 02/19 1630 AC 02/22 PO 0803 Al Hydroxide/Mg 30 ML Q4-6 PRN PRN 02/19 1630 AC Hydroxide PO Escitalopram Oxalate 10 MG 02/20 0800 AC 02/22 PO 0803 Hydroxyzine HCl 50 MG Q6P PRN 02/19 1630 AC 02/22 PO 1135 Lorazepam 0.5 MG 0800,0 02/24 0800 AC PO 02/24 2201 Lorazepam 0.5 MG Q6 02/23 0600 AC PO 02/23 2359 Lorazepam 1 MG Q8 02/22 0600 AC 02/22 PO 02/22 2201 0712 Lorazepam 1 MG 0800,1200,1600,02/21 0800 DC 02/21 PO 02/21 2001 1935 Lorazepam 2 MG Q2P PRN 02/19 1630 AC 02/19 PO 2254 Lorazepam 1 MG Q2P PRN 02/19 1630 AC 02/19 PO 2037 Magnesium Hydroxide 30 ML AT BEDTIME PRN 02/19 1630 AC PO Methadone HCl 175 MG DAILY@02/20 0800 AC 02/22 PO 0559 Multivitamins 1 TAB DAILY@02/20 0800 AC 02/22 PO 0803 Nicotine 7 MG 02/21 0800 AC 02/22 TOP 0803 Ondansetron HCl 4 MG Q8P PRN 02/21 1330 AC 02/22 PO 1017 Tuberculin PPD 0.1 ML ONE TIME ONE 02/22 1230 DC ID 02/22 1231 Vital Signs Date Time Temp Pulse Resp B/P Pulse O2 O2 Flow FiO2 Ox Delivery Rate 02/22 1255 84 122/79 02/22 1215 84 122/79 02/22 0747 97.5 95 138/66 02/22 0739 97.5 95 138/66 02/21 203 97.9 84 141/75 02/21 2029 97.9 84 141/75 02/21 1611 95 133/72 02/21 1609 95 133 ASSESSMENT: VM was left for Chhaya El APRN (pt's outpatient psychiatric GAS REVERSER), requesting to call back this web content writer for clinical collateral on the patient. Awaiting return phone call. Met with the patient today, who was A&Ox4. She presented disheveled. Speech was mumbled. Eye contact was appropriate. She perseverated on wanting and needing Vyvanse. This web content writer reviewed with the patient that on admission her Utox (+) for cocaine and amphetamine in addition to multiple substances. Psychoeducation was provided to the patient on combined use of prescribed and illicit substances and the risks of combining Vyvanse with illicit substances such as cocaine, including cardiac risks and . The patient verbalized understanding of education, however minimized the risks of polysubstance use, and showed poor judgement and insight into her pattern of substance use. This web content writer gentley explained to the patient that vyvanse would not be prescribed while she is hospitalized on unit, and offered alternative options such as Strattera and Wellbutrin. The patient became irritable upon hearing this, and stated "why are you denying me the medication that works for me." This web content writer redirected the patient back to conversation about the risks of polysubstance use and her ambivalence about abstaining from substances following discharge. The patient reported hopelessness and helplessness, surrounding feeling that her medications will "never be right again." She denied feeling worthless. She was noted to ramble about how previous drug programs and psychiatric treatment had failed her, but was unable to identify her part during past failed treatment attempts. She refused to consider alternative ADHD medications, and reportd "if I can't have Vyvanse, I don't want any other medications." She reported anxiety about discharge and having the "right medications (i.e. Vyvanse)" and how she will arrange follow-up treatment so that she can be prescribed Vyvanse. This web content writer explained to the patient that there is a chance that not many dual diagnosis programs would accept her on a psychostimulant given that it is an abusable drug. Patient appeared resistant to hearing this. The patient denied active/passive suicidal ideation, plans and intent. She denied homicidal ideation. There was no evidence of an underlying psychotic proocess, paranoia or delusions. She denied auditory and visual hallucinations. She reported protective factors of her "children." Patient reported tolerating Ativan taper well. Patient is low scoring on CIWA. VSS. PLAN: 1. Continue monitoring patient on unit for safety, mood, and benzo withdrawal. 2. Continue current medications. Readdress trials of Strattera and Wellbutrin with patient. Start if patient is agreeable. 3. Continue monitoring benzo withdrawal, and CIWA Q4H w/awake. Continue Ativan taper. 4. Dispo planning per primary team.
--- NOTE | 2016-02-23 14:28 | NUR ---
PT IS COMPLIANT AND COOPERATIVE. MOOD IS STABLE WITH A FULL RANGE OF AFFECT. PT DENIES SI AT THIS TIME, C/O CHRONIC PAIN. PT NOTED TO BE NODDING OUT IN COMMUNITY, IS EASILY AROUSABLE. PT IS PRESENT IN THE COMMUNITY AND INTERACTING WITH PEERS AND STAFF. PT IS ATTENDING SOME GROUPS. VITALS ARE STABLE, APPETITE IS GOOD.
[2016-02-23 16:30] VITALS: BP 122/86
[2016-02-23 16:31] VITALS: BP 122/86
--- NOTE | 2016-02-23 20:17 | NUR ---
Pt is in bed during change of shift no interaction was seen during the shift. Pt refused vital signs, pt is medseeking during the day. No interaction was noted during the day. Will continue to monitor the pt overnight.
[2016-02-24] VITALS (8 sets, daily range): BP systolic 123–140; BP diastolic 69–77
--- NOTE | 2016-02-24 05:51 | NUR ---
SLEPT WELL AWAKE AT 6 FOR MEDICATION
--- NOTE | 2016-02-24 13:35 | CP SOUTH PROGRESS NOTE PSYCH ---
Psych (Inpt) Progress Note Progress Note Include the following elements, when applicable: Involvement in the active treatment of the patient with behavioral observations of the patient and the patient's response to the treatment. Review of the ongoing treatment process in the context of the treatment plan. Indication of how multi-disciplinary staff members are carrying out the treatment plan. Plans for future interventions and recommendations for revision of the treatment plan. Liaison with other physicians/providers. Progress Note: Medication list reviewed. Patient known to me from my recent rounding on her. Case discussed with nurse, who reported that the patient is on CIWA q.4 hours while awake and scores are low. Patient continues to perseverate about getting back on Vyvanse. Patient seen at 9:50 AM. She was watching TV in the lounge but met with me in the office. Appears awake and alert. Reports she feels wild and hyped because she is not on Vyvanse. She continues to be medication seeking for Vyvanse. Patient has a tendency to abuse drugs as well as prescription medications and we are avoiding Vyvanse for her. She states she plans to resume Vyvanse upon her return home. Reports she is having bad thoughts about herself because she is not able to care for her kids. She feels "like a piece of sh-t." Reports she had been sober for 18 months. About 2 weeks ago, she was disappointed that [facility] would not pay for SCAD because patient had been sober for too long. Rates sad mood 8/10 and anxiety probably 10/10. Feels hopeless, helpless, worthless and guilty. Reports suicidal ideation without plan or intent. Nonetheless, the suicidal ideation is improving. Denies homicidal ideation. Denies auditory and visual hallucinations and paranoid ideation. Reports she slept well. Regarding appetite, states "actually, I'm really hungry." Energy is described as a lot. States it seems she is all over the place. She is agreeable to discharge on Friday if she has some place safe to go. IMPRESSION: Slow progress. Continue present treatment plan. Ativan taper continues to off. Anticipate likely discharge early next week.
--- NOTE | 2016-02-24 19:13 | NUR ---
PT ISOLATIVE IN BED. PT OOB FOR VS, MEDS, DINNER. PT IRRITABLE AND DEMANDING AT TIMES. PT GENERALLY COMPLIANT AND COOPERATIVE. NO COMPLAINTS THIS SHIFT.
[2016-02-25] VITALS (8 sets, daily range): BP systolic 114–128; BP diastolic 59–80
--- NOTE | 2016-02-25 12:32 | CP SOUTH PROGRESS NOTE PSYCH ---
Psych (Inpt) Progress Note Progress Note Include the following elements, when applicable: Involvement in the active treatment of the patient with behavioral observations of the patient and the patient's response to the treatment. Review of the ongoing treatment process in the context of the treatment plan. Indication of how multi-disciplinary staff members are carrying out the treatment plan. Plans for future interventions and recommendations for revision of the treatment plan. Liaison with other physicians/providers. Progress Note: Case discussed with RN, who reported that the patient is doing ok. Slept. Out in the milieu. Patient seen at 10:07 a.m. Feels nauseated. Reports she vomited this AM. Feels dizzy. Reports that the lights are bothering her. Wants Zofran available more frequently and I have changed the order to reflect this. Affect is irritable. Mood is "agitated, parkinson, worried, nothing good, all the bad feelings." Sad 09/02. Anxiety 10. Feels hopeless, helpless, worthless and guilty. Reports SI. Gives a safety promise for here. Denies HI, AH, VH, and PI. Reports she slept well but got up and down a little bit but got right back to sleep. Appetite is good when not feeling nauseated. Energy: "no energy, antsy, I can't get comfortable," which she relates to nausea. IMPRESSION: Slow progress. Continue present treatment plan. HCG is negative.
--- NOTE | 2016-02-25 14:26 | NUR ---
PT HAS BEEN MED SEEKING AND SOMATIC. SHE STATED SHE WAS HAVING WITHDRAWAL AND WAS REQUESTING MORE ATIVAN. SHE SPOKE WITH DR BLACKWELL AND HER ATIVAN ORDERS REMAIN THE SAME. SHE C/O NAUSEA AND VOMITING NOT OBSERVED BY STAFF AND RECEIVED 2 DOSES OF ZOFRAN THIS SHIFT. SHE DENIES ANY SUICIDAL THOUGHTS AT THIS TIME
--- NOTE | 2016-02-25 21:20 | NUR ---
Pt is in bed most of the shift, pt only comes out if it's time for meds and if she's hungry. Pt came for vital signs mood is stable c/o pain and trying to score on her ciwa rn was notified. Will continue to monitor the pt overnight.
[2016-02-26 07:32] VITALS: BP 133/67
[2016-02-26 07:56] VITALS: BP 133/67
--- NOTE | 2016-02-26 11:13 | SOCIAL WORKER PROG NOTE PSYCH ---
Social Work Progress Note Progress Note Patient is less tired this morning, and offered she is feeling better without the vivance today, she understands it can be an obstacle around placement ands "I've already been off it now for a few days, I don't want it to mess up a placement for me". Patient feeling ok today, and is making phone calls to [facility]. She is motivated. She reports she has an intake with [facility] at 10am and wants to remain on their wait list.
[2016-02-26 12:08] VITALS: BP 117/58
--- NOTE | 2016-02-26 13:47 | NUR ---
DENIES SI AT THIS TIME BUT CONTINUES TO BE MED SEEKING. COMPLAINED OF H/A REQUESTING FEORICET BUT NONE ORDERED. GIVEN TYLENOL REQUESTED. COMPLAINED OF NAUSEA ZOFRAN GIVEN. ATARAX GIVEN FOR ANXIETY THIS AM. DOES NOT ATTEND GROUPS. COMPLIANT WITH MED ADMINISTRATION.
--- NOTE | 2016-02-26 14:45 | CP SOUTH PROGRESS NOTE PSYCH ---
Psych (Inpt) Progress Note Progress Note Include the following elements, when applicable: Involvement in the active treatment of the patient with behavioral observations of the patient and the patient's response to the treatment. Review of the ongoing treatment process in the context of the treatment plan. Indication of how multi-disciplinary staff members are carrying out the treatment plan. Plans for future interventions and recommendations for revision of the treatment plan. Liaison with other physicians/providers. Progress Note: Case and treatment plan discussed in team meeting. Staff reports that the patient has been engaged in working on her discharge plan through making phone calls, etc. Concerned because she is not on Vyvanse or Fioricet. Medication- seeking. Patient seen. She was asleep in her room and 11:07 AM. She got up and met with me in the office at 11:12 AM. Complains of headache and nausea. She has light sensitivity. She is pleased that she has been making calls for her placement. Appears awake and alert. Affect is calm and euthymic. Reports mood is "all right, it's okay, 'cause I have a lot of worries." Rates sad mood and anxiety about 7/10. She feels hopeless, helpless, worthless and guilty. Reports suicidal ideation but gives a safety promise for here. Denies homicidal ideation. Denies auditory and visual hallucinations and paranoid ideation. Reports sleep is okay. Reports appetite is okay. Indicates that she is eating. Reports she is actually really hungry, which she finds to be weird, and she thinks this may be related to being off of Vyvanse. Describes energy as low. IMPRESSION: Slow progress. Continue present treatment plan. Anticipate discharge within the next couple of days.
--- NOTE | 2016-02-26 20:42 | NUR ---
PT ISOLATIVE AND WITHDRAWN TO BED FOR ALL OF SHIFT. PT REFUSED BOTH SETS OF EVENING VITALS. PT REFUSED TO MAKE MEAL ORDER FOR TOMMOROW. PT OOB FOR DINNER AND MEDS. PT COMPLAINED ABOUT DINNER RECEIVED, YET DOES NOT WANT TO COMPLY WITH PROPERLY ORDERING HER OWN FOOD. PT HAS BEEN COMPLAINING OF A HEADACHE ALL SHIFT.
--- NOTE | 2016-02-27 04:37 | NUR ---
SLEPT ALL NIGHT LONG, REFUSED 8PM VITALS ,NO GROUP ATTENDED.
[2016-02-27 07:45] VITALS: BP 116/89
[2016-02-27 07:48] VITALS: BP 116/89
[2016-02-27 12:39] VITALS: BP 130/90
[2016-02-27 12:40] VITALS: BP 130/90
--- NOTE | 2016-02-27 13:13 | SOCIAL WORKER PROG NOTE PSYCH ---
Social Work Progress Note Progress Note Patient presents with labile mood today and reporting +SI, mainly related to aftercare planning. Patient was denied today from [facility], both [place] and [facility]. She was also denied at [facility] in [place], [place] due to previous admissions. Patient recommended to call 211 to arrange for interview for senior care bed. Patient resistent to this plan and mentioned other transitional programs that she is interested in checking bed availability. Patient signed BETSEY's for two additional programs, [facility] in [place] and [facility] [place], [place]. [facility] today and no beds available at moment. Patient reports feeling hopeless and fears returning back to her significant others house due to substances in the home.
--- NOTE | 2016-02-27 13:15 | SOCIAL WORKER TX PLAN PSYCH ---
Treatment Plan - Please Document: - Evidence that there is ongoing collaboration between - the patient and the interdisciplinary team, - including the patient's active participation and - responsibility for engaging in the treatment regimen, - and that the treatment plan is individualized and - relevant to the patient's conditions. - Treatment plan should reflect documentation indicating - that all active therapeutic efforts are included. Strengths/Capabilities: maintained sobriety for 8 months prior to recent relapse 3 wks ago. Physical Limitations (Interventions): None identified Patient Identified Trmt Goals: "I want to go to rehab." Discharge Plan: Residential rehab Problem/Goals #1 Problem #1: suicidal ideation Goal (Short Term): Today I will attend 2 groups Today I will identify 2 stressors Today I will identify 2 positive supports Today I will work on recognizing 3 emotions I am feeling Goal (Detention): Be free of suicidal thoughts/attempts Develop 3 coping skills to deal with depression Identify 3 positive support systems to call in crisis Develop a crisis plan with 3 [place] people Identify 2 positive traits per week about myself Identify 2 things I have to look forward to Identify 2 positive people in my life and 1 thing I appreciate about them Interventions: Learn ways to manage depressive symptoms accordingly and identify positive supports to manage life stressors and mood fluctuations. Modalities: Encourage groups, education on depression, provide CBT treatment, family meeting. Problem/Goals #2 Problem #2: polysubstance abuse Goal (Short Term): 1) Refrain from substnace use 2) Identify 3 triggers for use 3) Identify 3 sober supports 4) Identify 3 coping skills Goal (Detention): I will attend all AA groups on unit I will Identify 3 coping skills for cravings to use I will attend all AA meetings on the unit I will set up aftercare for dual diagnosis program to address both mental health and substance abuse concernsns Interventions: Learn ways to manage cravings to use substances accordingly and identify coping skills to prevent relapse from occurring due to anxious/depressed feelings. Modalities: Encourage groups, education on addiction, provide CBT treatment, family meeting. 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
--- NOTE | 2016-02-27 13:33 | CP SOUTH PROGRESS NOTE PSYCH ---
Psych (Inpt) Progress Note Progress Note Include the following elements, when applicable: Involvement in the active treatment of the patient with behavioral observations of the patient and the patient's response to the treatment. Review of the ongoing treatment process in the context of the treatment plan. Indication of how multi-disciplinary staff members are carrying out the treatment plan. Plans for future interventions and recommendations for revision of the treatment plan. Liaison with other physicians/providers. Progress Note: [I discussed this patient's progress to date, current mental status, treatment process in the context of the treatment plan, and discharge planning with staff/ team in the daily morning inpatient team meeting. I also met with the patient myself in individual session.] SUBJECTIVE: "I'm having a shitty day." OBJECTIVE: Current Medications Sig/Amanuel Start time Last Medication Dose Route Stop Time Status Admin Acetaminophen 650 MG .STK-MED ONE 02/25 1719 DC PO 02/25 1720 Acetaminophen 650 MG Q6P PRN 02/19 1630 AC 02/26 PO 0751 Al Hydroxide/Mg 30 ML Q4-6 PRN PRN 02/19 1630 AC Hydroxide PO Escitalopram Oxalate 10 MG 02/20 0800 AC 02/26 PO 0748 Hydroxyzine HCl 50 MG .STK-MED ONE 02/25 1755 DC PO 02/25 1756 Hydroxyzine HCl 50 MG Q6P PRN 02/19 1630 AC 02/26 PO 1014 Lorazepam 2 MG Q2P PRN 02/19 1630 AC 02/19 PO 2254 Lorazepam 1 MG Q2P PRN 02/19 1630 AC 02/19 PO 2037 Magnesium Hydroxide 30 ML AT BEDTIME PRN 02/19 1630 AC PO Methadone HCl 175 MG DAILY@02/20 0800 AC 02/26 PO 0626 Multivitamins 1 TAB DAILY@02/20 0800 AC 02/26 PO 0748 Nicotine 7 MG 02/21 0800 AC 02/22 TOP 0803 Ondansetron HCl 4 MG Q6P PRN 02/24 1100 AC 02/25 PO 1724 Vital Signs Date Time Temp Pulse Resp B/P Pulse O2 O2 Flow FiO2 Ox Delivery Rate 02/26 1240 87 130/90 02/26 1239 87 130/90 02/26 0748 98.4 93 116/89 02/26 0745 98.4 93 116/89 ASSESSMENT: Attempted to contact Chhaya Nikko MATHEWS (pt's outpatient PSYCHIATRIC SOCIAL WORKER, #[phone]). PSYCHIATRIC SOCIAL WORKER out of office for remainder of today. Message left with office medical assitant to have PSYCHIATRIC SOCIAL WORKER return this radio script writer's call for collateral. Met with the patient today, who was A&Ox4. She presented with dysphoric mood, affect was sad. Speech was normal in rate, tone and volume. Eye contact was appropriate. She reported feeling "overwhelmed" over discharge planning and having no perminent place to go. She reported feeling hopeless and helpless over present circumstances. She denied feeling worthless. She reported suicidal ideation, denied plans and intent. Patient contracted to safety while on unit. She denied homicidal ideation. She remained hyperfocused on Vyvanse and appeared medication seeking. This radio script writer reviewed with the patient that Vyvanse would not be prescribed while in hospital given (+) Utox of Cocaine, and the risks associated with combined stimulant use. Patient verbalized understanding. This radio script writer offered trials of Strattera and Wellbutrin to target inattention and mood , however the patient declined and reported that when she discharges she plans to resume Vyvanse. The radio script writer educated her again on the risks of combined substance use and stimulants. Patient verbalized understanding of education. The patient reported depression of 8/10 (10 being the worst) and anxiety of 8/10 (10 being the worst), in the context of discharge planning. The patient denied auditory and visual hallucinations. There was no evidence of paranoid ideation or of felicia delusions. Patient reported past positive experiences attending AA/ NA meetings. Encouraged the patient that this would be an added support to her sobriety going forward. Patient was agreeable to resuming AA/NA meetings on discharge. Patient reported tolerating all medications well, and denied untoward medication effects. Patient appears to be making slow progress and currently requires inpatient level of care. PLAN: 1. Continue monitoring the patient on unit for safety, suicidal ideation and mood. 2. Continue current medications as patient is unwilling to trial alternative psychotropic medications for ADHD, depression or anxiety. 3. Continue dispo planning per primary team.
--- NOTE | 2016-02-27 14:44 | NUR ---
HAS BEEN OUT OF ROOM MORE TODAY. EXHIBITED SOME EMTIONAL DISTRESS, TEARFUL, LOUD OVER INABILITY TO SECURE ANTICIPATED DISCHARGE PREPARATIONS. MOOD LABILE, FULL RANGE. DENIED THOUGHTS OF SELF HARM THIS MORNING, VERBALIZED SELF HARM THOUGHTS DURING TIME OF EMOTIONAL DISTRESS. AWARE. CTM
[2016-02-27 17:56] VITALS: BP 127/68
--- NOTE | 2016-02-27 22:32 | NUR ---
PT ISOLATIVE IN BED. PT OOB FOR DINNER AND MEDS ONLY. PT REFUSED VS AT 1600h AND 2000h. PT AT TIMES IRRITABLE AND CONTRARY WITH STAFF. PT ENTITLED AND AT TIMES DEMANDING.
[2016-02-28 07:36] VITALS: BP 125/75
[2016-02-28 08:21] VITALS: BP 125/75
--- NOTE | 2016-02-28 11:57 | NUR ---
PT IS STABLE WITH FULL RANGE OF AFFECT. PT IS MINIMALLY ACTIVE WITHIN THE COMMUNITY AND MINIMALLY INTERACTS WITH PEERS/STAFF. SPENDS MOST OF THE DAY IN HER ROOM, SLEEPING. PT IS MED SEEKING AND ONLY COMES OUT TO ASK FOR MEDICATIONS. REPORTS HAVING AN ON-GOING MIGRAINE, SEVERE ANXIETY AND SENSITIVITY TO LIGHTS/SOUNDS. PT IS STILL ON CIWA Q4 BUT HAS NOT BEEN SCORING. VS ARE STABLE AND PT REPORTS FEELINGS OF SI BUT REPORTS FEELING "SAFE ON THE UNIT" AND DENIES ANY PLAN TO HURT HERSLEF ON THE UNIT/OR DC.
[2016-02-28 16:25] VITALS: BP 122/74
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
[2016-02-28 16:26] VITALS: BP 122/74
--- NOTE | 2016-02-28 16:26 | SOCIAL WORKER PROG TO GOALS ---
Progress Toward Goals Strengths/Capabilities: maintained sobriety for 8 months prior to recent relapse 3 wks ago. Physical Limitations (Interventions): None identified Patient Identified Trmt Goals: "I want to go to rehab." Discharge Plan: Residential rehab Problem/Goals #1 Problem #1: suicidal ideation Goal (Short Term): Today I will attend 2 groups Today I will identify 2 stressors Today I will identify 2 positive supports Today I will work on recognizing 3 emotions I am feeling Goal (Freezer Laboratory Technician): Be free of suicidal thoughts/attempts Develop 3 coping skills to deal with depression Identify 3 positive support systems to call in crisis Develop a crisis plan with 3 kasper people Identify 2 positive traits per week about myself Identify 2 things I have to look forward to Identify 2 positive people in my life and 1 thing I appreciate about them Interventions: Learn ways to manage depressive symptoms accordingly and identify positive supports to manage life stressors and mood fluctuations. Progress: Patient did not attend groups today due to migraine. She endorses passive SI but no plan or intent. Motivated to make calls and arrange aftercare plans. Planning for discharge in near future once aftercare plan arranged. Problem/Goals #2 Problem #2: polysubstance abuse Goal (Short Term): 1) Refrain from substnace use 2) Identify 3 triggers for use 3) Identify 3 sober supports 4) Identify 3 coping skills Goal (Freezer Laboratory Technician): I will attend all AA groups on unit I will Identify 3 coping skills for cravings to use I will attend all AA meetings on the unit I will set up aftercare for dual diagnosis program to address both mental health and substance abuse concernsns Interventions: Learn ways to manage cravings to use substances accordingly and identify coping skills to prevent relapse from occurring due to anxious/depressed feelings.
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
--- NOTE | 2016-02-28 23:00 | NUR ---
PT IS ISOLATIVE AND WITHDRAWN, IN ROOM SLEEPING MOST OF SHIFT. PT SEEMS LETHARGIC, STAYING OUT OF MILIEU MOST OF THE TIME. PT MOOD STABLE, AFFECT APPEARS FULL RANGE, APPETITE IS NORMAL, COMMUNICATION IS NORMAL. PT DENIES SI AT THIS TIME.
--- NOTE | 2016-02-29 05:31 | NUR ---
PATIENT SLEPT ALL NIGHT.
[2016-02-29 07:39] VITALS: BP 129/66
[2016-02-29 08:01] VITALS: BP 129/66
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
--- NOTE | 2016-02-29 12:24 | CP SOUTH PROGRESS NOTE PSYCH ---
Psych (Inpt) Progress Note Progress Note Include the following elements, when applicable: Involvement in the active treatment of the patient with behavioral observations of the patient and the patient's response to the treatment. Review of the ongoing treatment process in the context of the treatment plan. Indication of how multi-disciplinary staff members are carrying out the treatment plan. Plans for future interventions and recommendations for revision of the treatment plan. Liaison with other physicians/providers. Progress Note: [I discussed this patient's progress to date, current mental status, treatment process in the context of the treatment plan, and discharge planning with staff/ team in the daily morning inpatient team meeting. I also met with the patient myself in individual session.] SUBJECTIVE: "I'm worried about discharging." OBJECTIVE: Current Medications Sig/Amanuel Start time Last Medication Dose Route Stop Time Status Admin Acetaminophen 650 MG .STK-MED ONE 02/27 1635 DC PO 02/27 1636 Acetaminophen 650 MG Q6P PRN 02/19 1630 AC 02/28 PO 0540 Al Hydroxide/Mg 30 ML Q4-6 PRN PRN 02/19 1630 AC Hydroxide PO Escitalopram Oxalate 20 MG 03/01 0800 AC PO Escitalopram Oxalate 10 MG ONE TIME ONE 02/28 0800 DC 02/28 PO 02/28 0801 1052 Escitalopram Oxalate 10 MG 02/20 0800 DC 02/28 PO 0742 Hydroxyzine HCl 50 MG .STK-MED ONE 02/27 1800 DC PO 02/27 1801 Hydroxyzine HCl 50 MG Q6P PRN 02/19 1630 AC 02/28 PO 0742 Magnesium Hydroxide 30 ML AT BEDTIME PRN 02/19 1630 AC PO Methadone HCl 175 MG DAILY@02/28 0800 AC 02/28 PO 0631 Mirtazapine 7.5 MG 02/27 2200 AC PO Multivitamins 1 TAB DAILY@02/20 0800 AC 02/28 PO 0742 Nicotine 7 MG 02/21 0800 AC 02/22 TOP 0803 Nystatin 1 MANJU BID 02/28 1000 AC 02/28 TOP 1052 Ondansetron HCl 4 MG Q6P PRN 02/24 1100 AC 02/27 PO 0932 Vital Signs Date Time Temp Pulse Resp B/P Pulse O2 O2 Flow FiO2 Ox Delivery Rate 02/28 0801 97.1 90 129/66 02/28 0739 98.1 86 129/66 02/27 1626 76 122/74 02/27 1625 76 122/74 ASSESSMENT: Met with the patient today, who presented A&Ox4. Patient was cooperative on encounter. Speech was normal in rate, tone and volume. Eye contact was appropriate. She reported appetite remains good. She reported reduced energy and motivation related to poor sleep last night and frequent night time awakening. Of note, the patient refused ordered Remeron 7.5mg for insomnia/depression. Reviewed with the patient that Remeron may assist with insomnia. Patient reported she would try it tonight. She continued to report sadness/depression of 8/10 (10 being the worst) and anxiety 8/10 (10 being the worst). She reported anxiety and depression are in the context of discharge planning. Patient reported passive SI and thoughts to "eat a bunch of benzos to go to sleep." She denied suicide plan/intent while in hospital. She reported feeling helpless and "somewhat" hopeless. Conversely, she also reported feeling hopeful about potential placement at [facility], which she is familiar with from prior placement > 1 year ago. There was no evidence of psychotic process, paranoia, or delusions. She denied auditory and visual hallucinations. Thought process was organized and linear. Thought content was mostly appropriate. Patient was noted to have what appeared consistent with a fungal infection and odor to suprapubic area. Patient reported that in the past she had been treated with Nystatin powder, with good effect. Patient additionally appeared with a localized fine rash to her anterior and posterior neck which began today. She reported pruritis to areas. Prn Atarax with minimal effect. Will request an HOD consult for further evaluation. Patient's VSS. No SOB or difficulty swallowing per pt report. PLAN: 1. Increase Lexapro to 20mg today for depression/anxiety, and continue thenafter. 2. Continue to offer Remeron 7.5mg at HS for insomnia/depression. 3. Start Nystatin powder BID for fungal infxn. 4. HOD consult requested for localized rash to anterior/posterior neck. 5. Dispo planning per [facility].
[2016-02-29 12:26] VITALS: BP 123/73
[2016-02-29 12:39] VITALS: BP 123/73
--- NOTE | 2016-02-29 12:48 | NUR ---
PT IS COMPLIANT AND COOPERATIVE. PT IS OUT IN THE COMMUNITY INTERACTING WITH STAFF AND PEERS. PT IS NOT ACTIVE IN GROUPS. PT IS AT THE NURSES STATION OR MED ROOM ASKING ABOUT MEDS. PT GOAL IS TO FIND PLACEMENT, WHICH SHE HAS BEEN MAKING PHONE CALLS ALL SHIFT ABOUT. PT MOOD IS STABLE WITH A FULL RANGE AFFECT. PT DENIES SI
--- NOTE | 2016-02-29 12:55 | NUR ---
Pt reported a light pink rash to small local area on upper back and slighly on upper chest as well that was not distressing to the pt just menacing and slightly itchy. Jennifer Blair APRN aware and to call HOD to f/u. At about 11:30am the HOD - Dr. Galdamez was notified re: the above and to please assess and direct nursing staff further, pt stable, in no actue distress, + appetite and no other issues or concerns reported or observed, vital signs stable, no further MD orders at this time.
[2016-02-29 19:39] VITALS: BP 133/92
--- NOTE | 2016-02-29 21:44 | NUR ---
PT IS ISOLATIVE AND WITHDRAWN, REMAINING IN BED FOR MAJORITY OF EVENING. REFUSED AA AND WRAP UP MEETING. WHEN VISIBLE ON UNIT, PT IS SOCIAL WITH PEERS AND STAFF. PT HAS A STABLE MOOD AND FULL RANGE AFFECT.
--- NOTE | 2016-02-29 23:11 | NUR ---
PT REFUSED REMERON AND [place]STATIN DR. PAULINO NOTIFIED.
[2016-03-01] VITALS (7 sets, daily range): BP systolic 107–129; BP diastolic 64–95
--- NOTE | 2016-03-01 04:55 | NUR ---
SLEPT WELL NO ISSUES.
--- NOTE | 2016-03-01 04:55 | NUR ---
SLEPT MOST O9F THE EVENING HAD VITALS DONE .
--- NOTE | 2016-03-01 12:09 | Event Note ---
Event Note Event Note: I was called in to see the patient as she had some rash on her back. Patient denies any use of an new skin products. It's mostly macular rash on her upper back. She denies any fevers or chills. There is no use of any new medications. An it's not looking like a drug rash. At this point I will treat her with local hydrocortisone. If no response, will consider dermatology evaluation.
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
--- NOTE | 2016-03-01 13:16 | NUR ---
PT IS COMPLIANT AND COOPERATIVE. MOOD IS STABLE WITH A FULL RANGE OF AFFECT. PT DENIES SI AT THIS TIME, NO COMPLAINTS OFFERED. PT CAN BECOME IRRITABLE WITH STAFF WHEN IT COMES TO ENFORCING RULES AND PT NOTED TO BE STAFF SPLITTING. PT HAS BEEN OUT IN THE COMMUNITY AND INTERACTING WELL WITH OTHERS. PT REFUSING MOST GROUPS. VITALS ARE STABLE, APPETITE IS GOOD.
--- NOTE | 2016-03-01 13:35 | CP SOUTH PROGRESS NOTE PSYCH ---
Psych (Inpt) Progress Note Progress Note Include the following elements, when applicable: Involvement in the active treatment of the patient with behavioral observations of the patient and the patient's response to the treatment. Review of the ongoing treatment process in the context of the treatment plan. Indication of how multi-disciplinary staff members are carrying out the treatment plan. Plans for future interventions and recommendations for revision of the treatment plan. Liaison with other physicians/providers. Progress Note: [I discussed this patient's progress to date, current mental status, treatment process in the context of the treatment plan, and discharge planning with staff/ team in the daily morning inpatient team meeting. I also met with the patient myself in individual session.] SUBJECTIVE: "I'm still waiting for a program, I'm so stressed." OBJECTIVE: Current Medications Sig/Amanuel Start time Last Medication Dose Route Stop Time Status Admin Acetaminophen 650 MG .STK-MED ONE 02/28 1958 DC PO 02/28 2000 Acetaminophen 650 MG Q6P PRN 02/19 1630 AC 03/01 PO 1213 Al Hydroxide/Mg 30 ML Q4-6 PRN PRN 02/19 1630 AC Hydroxide PO Escitalopram Oxalate 20 MG 03/01 0800 AC 03/01 PO 0803 Hydrocortisone 1 MANJU BID 03/01 1205 AC 03/01 TOP 03/07 2200 1518 Hydroxyzine HCl 50 MG Q6P PRN 02/19 1630 AC 03/01 PO 1212 Ibuprofen 400 MG Q6P PRN 03/01 1400 AC 03/01 PO 1519 Magnesium Hydroxide 30 ML AT BEDTIME PRN 02/19 1630 AC PO Methadone HCl 175 MG DAILY@02/28 0800 AC 03/01 PO 0611 Mirtazapine 7.5 MG 02/27 2200 AC PO Multivitamins 1 TAB DAILY@02/20 0800 AC 03/01 PO 0802 Nicotine 7 MG 0800 PRN 03/01 1034 AC TOP Nicotine 7 MG 02/21 0800 DC 02/22 TOP 0803 Nystatin 1 MANJU BID 02/28 1000 AC 03/01 TOP 0803 Ondansetron HCl 4 MG Q6P PRN 02/24 1100 AC 02/27 PO 0932 Vital Signs Date Time Temp Pulse Resp B/P Pulse O2 O2 Flow FiO2 Ox Delivery Rate 03/01 1226 82 125/95 01/06 1209 82 125/95 03/01 0748 96.3 67 107/73 03/01 0731 96.3 69 107/73 02/28 1939 97.0 73 133/92 ASSESSMENT: Met with the patient today, she was A&Ox4. She remains worried over discharge disposition, and reported feeling hopeless about receiving a placement. Speech was normal in rate, tone and volume. Appetite was "good." She continued to report difficulty staying alseep. Of note, patient refused Remeron 7.5mg last night for insomnia/depression. Patient reported anxiety of 8/10 (10 being the worst), and depression of 8/10 (10 being the worst). She reported intermittent suicidal ideation with plan to "overdose on benzos" if she doesn't receive a program placement. She denied intent. Patient contracted to safety while on unit. Patient reported having limited disposition options, "It's either a program, a alf where I'll use, or my kids' father's house where I'll use. I don't know what to do?" Patient reported feeling helpless. She denied feeling worthless. Patient denied homicidal ideation, plans and intent. There was no evidence of psychotic process, paranoia or delusions. She denied auditory and visual hallucinations. Thought process is organized and linear. Thought content is appropriate. I/J remain limited. Patient continued to report tolerating medications well. She reported feeling tired throughout the day. Recommended reduction in methadone to improve patient' s overall energy. Patient refused to reduce methadone, reporting "I need it." Reviewed with patient healthy sleep hygeine, and that sleeping during the day may be dysregulating her ability to asleep at night. Discussed with patient trial of Remeron 7.5mg at bedtime to assist with difficulty staying asleep and to further target depression. Patient reported she will try it tonight. Will also offer patient prn Melatonin for sleep. PLAN: 1. Continue monitoring the patient on unit for safety, suicidal ideation, mood. 2. Continue current medications. 3. Offer Remeron 7.5mg at HS for insomnia/depression. 4. Add Melatonin 3mg prn for insomnia. 5. Continue to encourage reduction of Methadone. 6. Encourage participation in milieu activites. 7. Dispo planning per primary team.
--- NOTE | 2016-03-01 21:28 | NUR ---
Pt is in bed during change of shift, refused vital signs at 1999, Pt remains isolative no interaction seen during the rashaun shift. Will continue to monitor the pt overnight.
[2016-03-02] VITALS (8 sets, daily range): BP systolic 120–143; BP diastolic 60–80
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
--- NOTE | 2016-03-02 13:46 | NUR ---
Pt strongly suspected (sitter for another pt overheard...) of receiving contraband (solid waste landfill technician and possibly a cigarette) and smoking during a shower. Security was called and present on unit during room search, pt changed into hospital garments and personal clothes were removed for 24 hours (to be re-evaled by on-call psychiatrist tomorrow) and pt educated and counceled on safety. Pt did willing forfeit solid waste landfill technician when asked however denied smoking and any intent to do so. Dr. Aguilar aware and clothing restriction order placed.
--- NOTE | 2016-03-02 22:08 | NUR ---
PATIENT WAS IN BED ALL SHIFT; SHE INITIALLY REFUSED 2000 VITAL SIGNS, BUT WAS OUT OF BED FOR LATE EVENING HAVING A SNACK AND GOT HER VITAL SIGNS AND ATTENDED WRAP UP MEETING, STILL RUMINATING ON HER MEDICATIONS BEING INCORRECT AND NOT FEELING WELL A RESULT, STILL COMPLAINING OF A HEADACHE; PATIENT UTILIZING PRN MEDICATIONS; SHE DENIES SUICIDAL IDEATION.
[2016-03-03 06:46] VITALS: BP 112/70
[2016-03-03 07:56] VITALS: BP 112/70
[2016-03-03 08:01] VITALS: BP 112/70
[2016-03-03 12:15] VITALS: BP 122/68
[2016-03-03 12:21] VITALS: BP 122/68
--- NOTE | 2016-03-03 14:42 | NUR ---
PT IS COMPLIANT AND COOPEATIVE. PT IS IN ROOM FOR MOST OF SHIFT SLEEPING. PT DOES GET UP FOR VITALS AND MEALS. PT MOOD IS STABLE WITH A FULL RANGE AFFECT. PT DID GET CLOTHES BACK PER DR ORDERS. PT DENIES SI
--- NOTE | 2016-03-03 14:49 | CP SOUTH PROGRESS NOTE PSYCH ---
Psych (Inpt) Progress Note Progress Note Include the following elements, when applicable: Involvement in the active treatment of the patient with behavioral observations of the patient and the patient's response to the treatment. Review of the ongoing treatment process in the context of the treatment plan. Indication of how multi-disciplinary staff members are carrying out the treatment plan. Plans for future interventions and recommendations for revision of the treatment plan. Liaison with other physicians/providers. Progress Note: Pt seen in bed today. Wanted to be seen at bedside as continued migraine [place]. Noted poor sleep and amenable to melatonin. She denies SI or HI. Current Medications Sig/Amanuel Start time Last Medication Dose Route Stop Time Status Admin Acetaminophen 650 MG Q6P PRN 02/19 1630 AC 03/01 PO 1213 Al Hydroxide/Mg 30 ML Q4-6 PRN PRN 02/19 1630 AC Hydroxide PO Escitalopram Oxalate 20 MG 03/01 0800 AC 03/03 PO 0731 Hydrocortisone 1 MANJU BID 03/01 1205 AC 03/03 TOP 03/07 2200 0731 Hydroxyzine HCl 50 MG Q6P PRN 02/19 1630 AC 03/03 PO 1002 Ibuprofen 400 MG .STK-MED ONE 03/02 1742 DC PO 03/02 1743 Ibuprofen 400 MG Q6P PRN 03/01 1400 AC 03/03 PO 0932 Magnesium Hydroxide 30 ML AT BEDTIME PRN 02/19 1630 AC PO Melatonin 5 MG AT BEDTIME PRN 03/03 1446 UNVr PO Melatonin 3 MG AT BEDTIME PRN 03/01 1545 DC PO Methadone HCl 5 MG .STK-MED ONE 03/03 0644 DC PO 03/03 0645 Methadone HCl 175 MG DAILY@02/28 0800 AC 03/03 PO 0650 Mirtazapine 7.5 MG 02/27 2200 AC 03/02 PO 2056 Multivitamins 1 TAB DAILY@02/20 0800 AC 03/03 PO 0731 Nicotine 7 MG 08 PRN 03/01 1034 AC TOP Nystatin 1 MANJU BID 02/28 1000 AC 03/02 TOP 2050 Ondansetron HCl 4 MG Q6P PRN 02/24 1100 AC 02/27 PO 0932 Vital Signs Result Date Time B/P 122/68 03/03 1221 Pulse 72 03/03 1221 Temp 96.9 03/03 0801 Resp 20 03/02 2058 Pulse Ox 100 02/19 1906 O2 Delivery Room Air 02/19 1906 A/P: Pt with MDD and PSD on MM who presented with worsening mood and subtance use. Mood improved and now focused on discharge to more stable environment. No change in medication reigmen at this time. Continue current regimen Dispo per primary team
--- NOTE | 2016-03-03 21:42 | NUR ---
PT. IN ROOM ALL EVENING AGAIN REFUSED VITALS.
[2016-03-04 07:43] VITALS: BP 118/62
--- NOTE | 2016-03-04 08:27 | CP SOUTH PROGRESS NOTE PSYCH ---
Psych (Inpt) Progress Note Progress Note Include the following elements, when applicable: Involvement in the active treatment of the patient with behavioral observations of the patient and the patient's response to the treatment. Review of the ongoing treatment process in the context of the treatment plan. Indication of how multi-disciplinary staff members are carrying out the treatment plan. Plans for future interventions and recommendations for revision of the treatment plan. Liaison with other physicians/providers. Progress Note: [I discussed this patient's progress to date, current mental status, treatment process in the context of the treatment plan, and discharge planning with staff/ team in the daily morning inpatient team meeting. I also met with the patient myself in individual session.] SUBJECTIVE: "I really hope I get a placement today." OBJECTIVE: Current Medications Sig/Amanuel Start time Last Medication Dose Route Stop Time Status Admin Acetaminophen 650 MG Q6P PRN 02/19 1630 AC 03/01 PO 1213 Al Hydroxide/Mg 30 ML Q4-6 PRN PRN 02/19 1630 AC Hydroxide PO Escitalopram Oxalate 20 MG 03/01 0800 AC 03/04 PO 0801 Hydrocortisone 1 MANJU BID 03/01 1205 AC 03/03 TOP 03/07 2200 0731 Hydroxyzine HCl 50 MG .STK-MED ONE 03/03 0957 DC PO 03/03 0958 Hydroxyzine HCl 50 MG Q6P PRN 02/19 1630 AC 03/03 PO 1002 Ibuprofen 400 MG Q6P PRN 03/01 1400 AC 03/03 PO 0932 Magnesium Hydroxide 30 ML AT BEDTIME PRN 02/19 1630 AC PO Melatonin 5 MG AT BEDTIME 03/04 2200 AC PO Melatonin 5 MG AT BEDTIME PRN 03/03 1446 AC PO 03/04 2159 Melatonin 3 MG AT BEDTIME PRN 03/01 1545 DC PO Methadone HCl 175 MG DAILY@02/28 0800 AC 03/04 PO 0620 Mirtazapine 7.5 MG 02/27 2200 DC 03/02 PO 2056 Multivitamins 1 TAB DAILY@02/20 0800 AC 03/04 PO 0801 Nicotine 7 MG 0800 PRN 03/01 1034 AC TOP Nystatin 1 MANJU BID 02/28 1000 AC 03/02 TOP 2050 Ondansetron HCl 4 MG Q6P PRN 02/24 1100 AC 01/04 PO 0932 Vital Signs Date Time Temp Pulse Resp B/P Pulse O2 O2 Flow FiO2 Ox Delivery Rate 03/04 0743 97.3 70 118/62 03/03 1221 72 122/68 03/03 1215 72 122/68 ASSESSMENT: On encounter today, the patient was A&Ox4. She presented calm and cooperative. Reported she had a "boring" weekend. She reported fleeting passive SI over the weekend, and today. She reported passive SI today, denied plans or intent. She reported her mood as "fine." Reported feeling ambivalent about the outcomes of potential placements. Reiterated having no desire to go to a senior care, or return to her ex-boyfriend's home as neither would provide a stable environment. Reported depression 5/10 (10 being the worst) and anxiety 5/10 (10 being the worst). Both anxiety and depression seem improved from prior encounters. Energy level remains "tired" in the absence of Vyvanse. Reviewed with patient that Vyvanse will not be restarted given history of polysubstance abuse. Offered trial of Wellbutrin to help with sluggish energy/depression. Patient remains on the fence regarding this treatment option and medication seeking toward Vyvanse. She denied homicidal ideation. Denied auditory and visual hallucinations. There was no evidence of psychotic symptoms. I/J remain limited. Thought process was organized and linear. Thought content was appropriate. Over the weekend, patient trialed Remeron 7.5mg at HS. Patient reported HS dosing made her feel tired during the day. Patient elected to discontinue Remeron and to change prn Melatonin to scheduled at HS. Reported sleeping well on Melatonin 5mg at HS. Reported appetite remained good. Patient reported tolerating medications well overall and denied acute untoward effects. Will continue with present med regimen. PLAN: 1. Discontinue remeron 7.5mg at HS d/t daytime sedation. 2. Change Melatonin 5mg prn at HS to scheduled at HS for insomnia. 3. Continue monitoring patient on unit for safety and mood. 4. Dispo planning per primary team.
[2016-03-04 12:32] VITALS: BP 137/75
[2016-03-04 13:05] VITALS: BP 137/75
--- NOTE | 2016-03-04 13:27 | NUR ---
PT IS COMPLIANT AND COOPERATIVE. MOOD IS STABLE WITH A FULL RANGE OF AFFECT. PT DENIES SI AT THIS TIME, C/O MIGRANE. PT IS PRESENT ON THE UNIT AND INTERACTING WELL WITH PEERS AND STAFF. PT IS ATTENDING SOME GROUPS. VITALS ARE STABLE, APPETITE IS GOOD.
--- NOTE | 2016-03-04 14:45 | SOCIAL WORKER PROG NOTE PSYCH ---
Social Work Progress Note Progress Note Patient continues to work on aftercare plan. Patient has again been on the phone most of the day seeking bed availability, completing phone screenings and completing applications for sober house/ residential rehabs. Patient reports a desire to discharge the hospital but does not want to resort returning back to her diana fathers house. Patient reports a desire to live in a sober environment and work if it is an option. Patient may have bed tomorrow at [facility] , they report having a bed available today and are reviewing her clinical information today. She reports passive SI today, mainly related to aftercare plans.
[2016-03-04 15:56] VITALS: BP 128/80
[2016-03-04 16:12] VITALS: BP 128/80
--- NOTE | 2016-03-04 22:53 | NUR ---
Patient refused evening vitals opting to remain in bed. Patient declined evening medications. Patient out for meals and medications at times. Patient continues to report headache 8/10 with minimal relief from medications. Patient encouraged to stay out of room, disregards staff.
[2016-03-05 06:03] VITALS: BP 131/89
[2016-03-05 07:48] VITALS: BP 131/89
[2016-03-05 08:14] VITALS: BP 131/89
--- NOTE | 2016-03-05 08:20 | CP SOUTH PROGRESS NOTE PSYCH ---
Psych (Inpt) Progress Note Progress Note Include the following elements, when applicable: Involvement in the active treatment of the patient with behavioral observations of the patient and the patient's response to the treatment. Review of the ongoing treatment process in the context of the treatment plan. Indication of how multi-disciplinary staff members are carrying out the treatment plan. Plans for future interventions and recommendations for revision of the treatment plan. Liaison with other physicians/providers. Progress Note: [I discussed this patient's progress to date, current mental status, treatment process in the context of the treatment plan, and discharge planning with staff/ team in the daily morning inpatient team meeting. I also met with the patient myself in individual session.] SUBJECTIVE: "I have some phone intakes today for programs." OBJECTIVE: Current Medications Sig/Amanuel Start time Last Medication Dose Route Stop Time Status Admin Acetaminophen 650 MG Q6P PRN 02/19 1630 AC 03/05 PO 0600 Al Hydroxide/Mg 30 ML Q4-6 PRN PRN 02/19 1630 AC Hydroxide PO Escitalopram Oxalate 20 MG 03/01 0800 AC 03/04 PO 0801 Hydrocortisone 1 MANJU BID 03/01 1205 AC 03/03 TOP 03/07 2200 0731 Hydroxyzine HCl 50 MG .STK-MED ONE 03/04 1429 DC PO 03/04 1430 Hydroxyzine HCl 50 MG Q6P PRN 02/19 1630 AC 03/04 PO 1434 Ibuprofen 400 MG .STK-MED ONE 03/04 1224 DC PO 03/04 1225 Ibuprofen 400 MG Q6P PRN 03/01 1400 AC 03/04 PO 1230 Magnesium Hydroxide 30 ML AT BEDTIME PRN 02/19 1630 AC PO Melatonin 5 MG AT BEDTIME 03/04 2200 AC PO Melatonin 5 MG AT BEDTIME PRN 03/03 1446 DC PO 03/04 2159 Methadone HCl 175 MG DAILY@02/28 0800 AC 03/05 PO 0600 Mirtazapine 7.5 MG 02/27 2200 DC 03/02 PO 205 Multivitamins 1 TAB DAILY@02/20 0800 AC 03/04 PO 0801 Nicotine 7 MG 0800 PRN 03/01 1034 AC TOP Nystatin 1 MANJU BID 02/28 1000 DC 03/02 TOP 205 Ondansetron HCl 4 MG Q6P PRN 02/24 1100 AC 02/27 PO 0932 Vital Signs Date Time Temp Pulse Resp B/P Pulse O2 O2 Flow FiO2 Ox Delivery Rate 03/05 0814 96.9 77 131/89 03/05 0748 96.9 77 131/89 03/05 0603 96.9 77 18 131/89 03/04 1612 75 128/80 03/04 1556 75 128/80 03/04 1305 83 137/75 03/04 1232 83 137/75 ASSESSMENT: Met with patient today, she presents A&Ox4. Speech was normal in rate, tone and volume. Affect appeared calm and full-range, non-labile. Mood appears somewhat improved since previous encounters, patient reports feeling "hopeful" that a sober placement with happen. She reported depression of 5/10 (10 being the worst ) and anxiety of 5/10 (10 being the worst), in the context of uncertainty regarding discharge placement. She denies hopelessness, feels somewhat helpless related to outcomes of a discharge placement. She denies worthlessness. She reported passive SI in the context of not having received a permenant discharge placement yet. She denied suicidal plans and intent. She denied homicidal ideation. Reported protective factors of my "parents" and "kids." Reported she would like to receive placement at [facility] in [place], [place] as it is near her parents' home. Thought process was organized and goal-directed. Thought content was appropriate. There was no evidence of psychotic process, delusions or paranoia. Reported sleep and appetite were good. Continued to report low energy level. Offered patient a trial of Wellbutrin again, to target low energy and depression. Patient continued to refuse trial. Not agreeable to trialing alternative psychotropics. Remained med-seeking for Vyvanse. Reviewed with patient again, Vyvanse would not be restarted due to hx PSA. Patient reported she will resume Vyvanse post-discharge. Patient was advised against this given hx PSA. Will continue current med regimen. PLAN: 1. Continue current med regimen. 2. Await discharge placement. 3. Dispo planning per primary team. 4. Continue monitoring patient on unit for safety, suicidal ideation and mood.
[2016-03-05 12:35] VITALS: BP 113/56
[2016-03-05 12:49] VITALS: BP 113/56
--- NOTE | 2016-03-05 13:14 | NUR ---
Pt is present in the community, A&O X 3 compliant with medication and group therapies. Pt interacts with other peers and staff members especially with her SW making phone calls to various retirement for her acceptance in preparation for discharge, denies thought of self-harm and to someone else.
--- NOTE | 2016-03-05 14:21 | SOCIAL WORKER PROG NOTE PSYCH ---
Social Work Progress Note Progress Note Patient confirmed aftercare with [facility] in [place], [place]. Patient will be transported there tomorrow by [facility], I completed application today/ faxed it over and requested orange picker machine operator for 11am tomorrow. Patient denies SI today and is pleased with discharge dispostion. Patient will continue methadone maintenance with [facility] and recommended to follow through with their IOP as well.
[2016-03-05 20:01] VITALS: BP 133/78
--- NOTE | 2016-03-05 21:58 | NUR ---
Pt is in bed most of the shift. No interaction was seen during the rashaun shift. Vital signs are stable, appetite is good. Will continue to monitor the pt overnight.
[2016-03-06 07:42] VITALS: BP 123/70
--- NOTE | 2016-03-06 07:46 | CP SOUTH PROGRESS NOTE PSYCH ---
Psych (Inpt) Progress Note Progress Note Include the following elements, when applicable: Involvement in the active treatment of the patient with behavioral observations of the patient and the patient's response to the treatment. Review of the ongoing treatment process in the context of the treatment plan. Indication of how multi-disciplinary staff members are carrying out the treatment plan. Plans for future interventions and recommendations for revision of the treatment plan. Liaison with other physicians/providers. Progress Note: [I discussed this patient's progress to date, current mental status, treatment process in the context of the treatment plan, and discharge planning with staff/ team in the daily morning inpatient team meeting. I also met with the patient myself in individual session.] SUBJECTIVE: "I'm so happy, I got into a recovery house!" OBJECTIVE: Current Medications Sig/Amanuel Start time Last Medication Dose Route Stop Time Status Admin Acetaminophen 650 MG Q6P PRN 02/19 1630 AC 03/05 PO 0600 Al Hydroxide/Mg 30 ML Q4-6 PRN PRN 02/19 1630 AC Hydroxide PO Escitalopram Oxalate 20 MG 03/01 0800 AC 03/05 PO 0938 Hydrocortisone 1 MANJU BID 03/01 1205 AC 03/03 TOP 03/07 2200 0731 Hydroxyzine HCl 50 MG .STK-MED ONE 03/05 1815 DC PO 03/05 1816 Hydroxyzine HCl 50 MG .STK-MED ONE 03/05 1140 DC PO 03/05 1141 Hydroxyzine HCl 50 MG Q6P PRN 02/19 1630 AC 03/05 PO 1820 Ibuprofen 400 MG Q6P PRN 03/01 1400 AC 03/06 PO 0618 Magnesium Hydroxide 30 ML AT BEDTIME PRN 02/19 1630 AC PO Melatonin 5 MG AT BEDTIME 03/04 2200 AC PO Methadone HCl 175 MG DAILY@00 02/28 0800 AC 03/06 PO 0616 Multivitamins 1 TAB DAILY@02/20 0800 AC 03/05 PO 0938 Nicotine 7 MG 0800 PRN 03/01 1034 AC TOP Ondansetron HCl 4 MG Q6P PRN 02/24 1100 AC 02/27 PO 0932 Vital Signs Date Time Temp Pulse Resp B/P Pulse O2 O2 Flow FiO2 Ox Delivery Rate 03/06 741 96.7 74 123/70 03/05 2000 96.1 77 133/78 03/05 1249 75 113/56 03/05 1235 75 113/56 03/05 0814 96.9 77 131/89 03/05 0748 96.9 77 131 ASSESSMENT: Met with the patient today, on the date of discharge. She presented alert and oriented to person, place, time and situation. She had no complaints. Speech was normal in rate, tone and volume. Affect was full-range and non-labile. Mood was "happy." She reported feeling "much better now that I know I will be going to a sober place." She reported her depression of 3/10 (10 being the worst) and anxiety of 5/10 (10 being the worst). She denied feeling hopeless, helpless, and worthless. She denied active and passive suicidal ideation, plans, and intent, and reported that the cause of her previously endorsed suicidal ideation was soley in the context of not knowing where she would discharge to. She reported feeling "positive" about discharging to [facility], as it will provide her with a sober environment and support to continue sobriety. She reported protective factors of "my kids," "my parents," and "my sobriety, I want it for me." She denied homicidal ideation. She stated and also believed she will not harm herself or others. She denied auditory and visual hallucinations. There was no evidence of an underlying psychotic process, delusions or paranoia. She reported her sleep was fair, and appetite was good. She reported tolerating medications well and denied untoward medication effects. She reported feeling safe and ready for discharge. PLAN: 1. Discharge today to [facility]. Patient to be transported there from hospital by [facility]. 2. Abstain from all substances. Patient encouraged to attend AA/NA meetings and obtain a sponsor to support her in sobriety. 3. Reviewed discharge prescriptions with patient, called into [facility] ([phone]). 4. In the event of an emergency, call /go to nearest emergency department. Patient verbalized understanding of instruction. 5. Resume methadone treatment at [facility] in [place], [place] tomorrow morning at 8AM.
[2016-03-06 07:59] VITALS: BP 123/70
--- NOTE | 2016-03-06 08:01 | NUR ---
PT IS SCHEDULED FOR D/C TODAY TO [facility]. SHE HAS SECURED A BED AT A SOBER HOUSE IN [place] AND WILL FOLLOW UP WITH [facility]. SHE IS EXCITED TO BE LEAVING TODAY. SHE REPORTS AND DEMONSTRATES IMPROVEMENT IN MOOD AND ABILITY TO FUNCTION.SHE DENIES ANY THOUGHTS OF SUICIDE OR SELF HARM AT THIS TIME. PT REPORTS NO S/S WITHDRAWAL AND VSS. SHE IS GIVEN EDUCATION ON MANAGING DEPRESSION AND ON SUICIDE PREVENTION
--- NOTE | 2016-03-06 08:01 | DISCHARGE SUMMARY REPORT-PSYCH ---
Visit Information Visit Dates/Diagnosis' Admission Date: 02/20/16 Discharge Date: 03/06/16 Reason for Admission: Suicidal ideation & Xanax detox Psy Discharge Primary Diag: Major depressive disorder Psy Discharge Secondary Diag: R/O Bipolar Disorder; ADHD by history; Anxiolytic use disorder, severe; Opiate use disorder, severe (on methadone maintenance); Crack/cocaine use disorder, moderate; migraines Hospital Course Significant Lab Findings: Lab Glucose 115 mg/dL H 02/20/16 1515 Hct 36.7 % L 02/20/16 1515 MCH 26.4 PG L 02/20/16 1515 MCV 80.2 FL L 02/20/16 1515 MPV 7.2 FL L 02/20/16 1515 PUBS MCHC 32.9 G/DL L 02/20/16 1515 RDW 17.4 % H 02/20/16 1515 Amphetamines Screen > 1450 NG/ML H 02/20/16 1500 Barbiturate Screen > 800 NG/ML H 02/20/16 1500 Methadone Screen > 735 NG/ML H 02/20/16 1500 U Benzodiazepines Scrn 412 NG/ML H 02/20/16 1500 Urine Cocaine Screen > 1000 NG/ML H 02/20/16 1500 Course Complications: None. Consultations: The patient was seen for admission history and physical by Dr. Elizabeth Kirkland. Please see her note for additional details. Patient was additionally consulted by Dr. Flora Galdamez for macular rash and was started on hydrocortisone cream topical. Allergies: Coded Allergies: trazodone (Intermediate, NIGHTMARES 05/30/15) aripiprazole (From Abiliy) (STRANGE MENTAL FEELING 05/30/15) Hospital Course/TX Response: The patient was monitored on the unit for safety, suicidal ideation, mood and benzodiazepine withdrawal. The patient successfully completed an Ativan taper for benzodiazepine detox. Patient was maintained on Methadone 175mg daily which was started and verified by [facility] in [place], [place]. She was restarted on Lexapro 10mg every morning which was increased to 20mg every morning for depression/anxiety. She was additionaly restarted on Atarax 50mg [id number] for anxiety with fair effect. Patient on average utilized prn Atarax 3 times a day. Vyvanse 70mg daily and prn Fiorecet were discontinued given patient's history of polysubstance use. Patient was consistently offered trials of Strattera and Wellbutrin as substitutions for Vyvanse to target self-reported symptoms of ADHD. Patient was not agreeable to recommendations. Patient received a one time dose of Imitrex 25mg po for migraine which yielded fair effect. Patient was offered trials of Melatonin 5mg at HS and Remeron 7.5mg at HS for insomnia, however did not utilize medications consistently, and elected to discontinue these. The patient tolerated all medications well and denied untoward medication effects. During the hospital course, the patient's mood and affect improved. Suicidal ideation remitted. She denied urges and cravings to use substances. Patient did not elect to have any family or friends involved in her inpatient care, and as a result a discharge meeting/phone conference was not held. Collateral was attempted multiple times from Chhaya El, patient's former outpatient psychiatric NUTRITIONAL CHEMIST, however was never successfully obtained. The patient was agreeable to after care plan at [facility] in [place], [place] and follow-up with [facility] for continued medication management and methadone treatment. The patient was in favor of discharge recommendations. On the date of discharge, 03/06/16, the patient presented alert and oriented to person, place, time and situation. She had no complaints. Speech was normal in rate, tone and volume. Affect was full-range and non-labile. Mood was "happy." She reported feeling "much better now that I know I will be going to a sober place." She reported her depression of 3/10 (10 being the worst) and anxiety of 5/10 (10 being the worst). She denied feeling hopeless, helpless, and worthless. She denied active and passive suicidal ideation, plans, and intent, and reported that the cause of her previously endorsed suicidal ideation was soley in the context of not knowing where she would discharge to. She reported feeling "positive" about discharging to [facility], as it will provide her with a sober environment and support to continue sobriety. She reported protective factors of "my kids," "my parents," and "my sobriety, I want it for me." She denied homicidal ideation. She stated and also believed she will not harm herself or others. She denied auditory and visual hallucinations. There was no evidence of an underlying psychotic process, delusions or paranoia. She reported her sleep was fair, and appetite was good. She reported tolerating medications well and denied untoward medication effects. She reported feeling safe and ready for discharge. Discharge HBIPS - Tobacco Use Treatment Offered Post DC Medications Offered: Refused Tob Medication Tx Post DC Tobacco Treatment Plan: Refused Tobcco Tx Pgm - EtOH/Drug Use D/O Treatment Offered Post DC Medications Offered: Med Not Indicated for D/O Post DC EtOH/SubAbuse TX Plan: Other SubAbuse/Dual Pgm Program Appt Date: 03/06/16 Program Appt Time: 1130 Metabolic Screening - Screen if on a Neuroleptic Medication - Metabolic screening should include: - Blood Pressure, BMI, Glucose or Hgb A1c, & a - Lipid profile from within the past 365 days. Metabolic Screening ([X]) Not Applicable, patient not on a neuroleptic. OR () Patient on a neuroleptic(s) . Enter below results for Glucose or Hemoglobin A1C, and lipid panel if obtained during the last 365 days. BMI: 35.100 Blood Pressure: 123/70 Laboratory Results (If applicable): N/A Discharge Instructions General Discharge Information Discharge Medications: Discharge Medications- (Dose, route, freq, indication): HOME MEDICATION LIST START taking these NEW Home Medications: Escitalopram Oxalate Dose: ORAL, DAILY @8 AM for Qty: 14 Call-In to (Lexapro) 20 MG 20 Milligram anxiety/depression Refills: 1 Pharm 1 TABLET Hydrocortisone Dose: On the skin, TWICE DAILY Qty: 1 Call-In to (Hydrocortisone) 1 % 1 Application for rash Refills: 0 Pharm 1 CREAM..G. Multivitamin (One Dose: ORAL, DAILY@0800 for Qty: 14 Call-In to Daily Multivitamin) 1 Tablet vitamin support Refills: 1 Pharm 1 1 EACH TABLET Hydroxyzine HCl Dose: ORAL, EVERY 8 HOURS Qty: 42 Call-In to (Hydroxyzine HCl) 50 50 Milligram NEEDED as needed for Refills: 1 Pharm 1 MG TABLET anxiety All above discharge prescriptions were called in [facility] (#[phone]) today, on 03/06/16. CONTINUE taking these Home Medications: Methadone HCl (Methadone Dose: ORAL, DAILY for MENTAL HCl) 5 MG/5 ML SOLUTION 175 Milligram HEALTH PER PT [facility] STOP taking these DISCONTINUED Home Medications: Lisdexamfetamine Dimesylate Dose: ORAL, Every Morning for ADD (Vyvanse) 70 MG CAPSULE 1 Capsule Reason Stopped: Per Doctor Decision Butalb/Acetaminophen/Caffeine Dose: ORAL, as needed for MIGRAINES (Fioricet 50-300-40 MG 1-2 Capsule Reason Stopped: Per Doctor Capsule) (Unknown Strength) Decision CAPSULE 1: [facility] [id number], [address] [place] [address] [phone] [facility] [id number] [address], [place] [phone] Multiple Neuroleptics: (X]) Not Applicable OR Document below three failed attempts at monotherapy, or a plan to taper to monotherapy, or augmentation of Clozapine. () Patient's Diet: Regular. Patient's Activity: No restrictions. DC Disposition: Patient to discharge to [facility] in [place], [place]. Patient was provided transportation from hospital to [facility] by Road to [facility], Recommendations: Patient was advised to please take medications. She was advised to abstain from all substances, attend AA/NA meetings and to obtain a sponsor. She was advised to continue methadone treatment at [facility] ([facility] in [place], [place] and follow-up with medication management there. She refused smoking cessation group treatment information and discharge smoking cessation medications. Patient was advised to follow-up with PCP for continued macular rash. She was advised that in the event of an emergency to call [phone] to nearest emergency department. Patient verbalized understanding of all instructions. Referred To: [facility] [address], [place] [phone] Patient transported there on discharge, 03/06/[address] [facility]. [address] [address] [phone] Walk-in to resume methadone maintenance on 03/07/16 at 8AM. Copies To: [facility]; [facility]
[2016-03-06] MEDS ORDERED: LEXAPRO20 M1 PO ×2 (08:38→09:37)
[2016-03-06] MEDS ORDERED: HYDROXYZINE HCL50 M1 PO (08:49)
[2016-03-06] MEDS ORDERED: ONE DAILY MULT1 EAC2 PO (09:38)
[2016-03-06] MEDS ORDERED: HYDROCORTISO453.6 G1 TOP (09:38)
--- NOTE | 2016-03-06 10:35 | SOCIAL WORKER PROG NOTE PSYCH ---
Social Work Progress Note Progress Note Patient to discharge the hospital today. Patient has secured bed at [facility] in [place], [place] today and [facility] is picking patient up around 11am. Patient will resume methadone maintenance at [facility] and is recommended to attend IOP there as well. It is also recommended for her to attend AA/NA meetings in the community. Patient denies any SI/HI/AH/VH today and reports looking forward to going to [facility] today. Patient is forward thinking at this time and able to contract for safety.
[2016-03-06 12:03] VITALS: BP 135/75
[2016-03-06 12:08] VITALS: BP 135/75
--- NOTE | 2016-03-11 14:44 | IP INCIDENTAL NOTE PSYCH ---
Incidental Note Notation: This chief underwriter was called by Crisis ED to see patient who represented to ED today, 03/11/16, following discharge from [facility] on 03/06/16. Today, in ED Crisis, patient endorsed +SI with a plan to shoot herself if she had access to a gun; hoplessness, helplessness, and worthlessness. She denied having access to guns, but has a history of behavioral impulsivity. Utox (+) methadone, cocaine, and benzos. She reported relapsing the day after [facility] discharge,, to [facility]. Patient awaiting Cloth Spreader Screen Printing evaluation. Patient will likely require ED hold over night for sobriety, and re-evaluation to determine level of safety once sober.
== END 2016-03-06 12:58 | DRG 754 ==
LOC: ERH 12:56 → CP SOUTH 16:45 → ERHI 16:45 → ENPENDDIS 16:45 → CP SOUTH 19:54
PROVIDERS: Physician Assistant; ADMIT Psychiatry & Neurology Psychiatry
DX: F32.9 Major depressive disorder, single episode, unspecified (principal); F13.20 Sedative, hypnotic or anxiolytic dependence, uncomplicated; F11.20 Opioid dependence, uncomplicated; F14.20 Cocaine dependence, uncomplicated; G43.909 Migraine, unspecified, not intractable, without status migrainosus
CPT/HCPCS: 81001; 81025; 93005; 93010; G0479; G0480; J3101

== ENCOUNTER 2016-03-11 11:56 | Emergency (ER) | payer OTHER ==
[~2016-03-11] VITALS: Ht 152.4 cm; Wt 82.6 kg
[~2016-03-11 11:56] MED LIST changes: +FIORICET 50-301 EACH PO; +HYDROCORTISO453.6 G1 TOP; +HYDROXYZINE HCL50 M1 PO; +LEXAPRO20 M1 PO; +METHADONE H5 MG/5 M2 PO; +ONE DAILY MULT1 EAC2 PO; +VYVANSE70 M1 PO
--- NOTE | 2016-03-11 12:08 | ED PSYCHIATRIC COMPLAINT ---
See Addendum History of Present Illness General Chief Complaint: Psychiatric Related Complaint Stated Complaint: +SI Source: patient, old records Exam Limitations: no limitations Vital Signs & Intake/Output Vital Signs & Intake/Output Vital Signs Date Time Temp Pulse Resp B/P Pulse O2 O2 Flow FiO2 Ox Delivery Rate 03/11 1559 96.8 93 16 100/50 95 Room Air 03/11 1204 97.0 100 16 143/93 97 Room Air Allergies Coded Allergies: trazodone (Intermediate, NIGHTMARES 05/30/15) aripiprazole (From Abilify) (STRANGE MENTAL FEELING 05/30/15) Reconcile Medications Butalb/Acetaminophen/Caffeine (Fioricet 50-300-40 MG Capsule) 50 MG-300 MG-40 MG CAPSULE 1 CAP PO PRN HEADACHE (Reported) Escitalopram Oxalate (Lexapro) 20 MG TABLET 20 MG PO 0800 anxiety/depression Lisdexamfetamine Dimesylate (Vyvanse) 70 MG CAPSULE 1 CAP PO QAM MENTAL HEALTH (Reported) Methadone HCl 5 MG/5 ML SOLUTION 175 MG PO DAILY MENTAL HEALTH (Reported) Triage Note: PT STATES SHE IS FEELING SUICIDAL(CRYING IN TRIAGE). PT STATES SHE IS FEELING ALONE AND SAD AND SHE IS AT THE POINT WHERE SHE DOESN'T WANT TO BE HERE ANYMORE. PT STATES SHE KEEPS COMING HERE AND SHE GETS BETTER FOR A LITTLE BIT AND THEN HER THOUGHTS COME BACK. PT STATES IF SHE HAD A GUN SHE WOULDN'T BE HERE ANYMORE. PT STATES SHE TOOK A HANDFULL OF BENZOS THE OTHER DAY AND SHE COULDN'T REMEMBER 3 DAYS OF HER LIFE. Triage Nurses Notes Reviewed? yes Onset: Gradual Duration: week(s):, getting worse Timing: recent history Severity: mild, moderate Severity Numbers: 10 Associated Symptoms: suicidal ideation : No Patient currently breastfeeds: No HPI: 35-year-old female with history of substance abuse depression presents to the emergency room requesting crisis evaluation stating that she has been feeling progressively more depressed and suicidal since being discharged here a few weeks ago. The patient reports that she's been under increasing stress as her 4 -month-old his staying with her mother and has a feeding tube. The patient is currently residing with her son's father. The patient states that she was sent home with a Lexapro and was taken off Vyvanse which she states she was on for some Friday. She states she relapsed a few days ago and took 3-2 mg Xanax and smoked crack cocaine yesterday. She denies any other substance abuse or alcohol abuse. The patient states that if she had access to a gun she would' ve killed herself already (AMANDA WALDROP) Past History Travel History Traveled to [place] past 21 day No Medical History Any Pertinent Medical History? see below for history Neurological: NONE, migraine EENT: NONE Cardiovascular: NONE Respiratory: NONE Gastrointestinal: NONE, constipation Hepatic: NONE Renal: NONE Musculoskeletal: NONE Psychiatric: depression, insomnia, opioid dependence, substance abuse, METHADONE MAINTENANCE Endocrine: NONE Blood Disorders: NONE Cancer(s): NONE CORN SHUCKER/Reproductive: NONE History of MRSA: No History of VRE: No History of CDIFF: No Surgical History Surgical History: Psychosocial History Who do you live with Friend Services at Home None What is your primary language Sinhala Tobacco Use: Current Daily Use Daily Tobacco Use Amount/Type: =< 4 Cigarettes daily ETOH Use: occasional use Illicit Drug Use: cocaine, benzodiazepines Family History Family History, If Any: FATHER (DM). Relation not specified for: FH: depression Hx Contributory? No (AMANDA WALDROP) Review of Systems Review of Systems Constitutional: Reports: see HPI. All Other Systems: Reviewed and Negative Comments Review of systems: See HPI, All other systems negative. Constitutional, no chills no fever, no malaise HEENT: No visual changes no sore throat no congestion Cardiovascular: No chest pain , no palpitation Skin, no rashes, no change in skin Respiratory: No dyspnea no cough no sputum GI: No nausea no vomiting, no diarrhea, : No dysuria Muscle skeletal: No joint pain, no back pain, no neck pain, Neurologic: No numbness, no headache Psych: see hpi. Heme/endocrine: No bruising no bleeding no polyuria no polydipsia Immunology: No lymphadenopathy, (AMANDA WALDROP) Physical Exam Physical Exam General Appearance: well developed/nourished, no apparent distress, alert Neurological/Psychiatric: no motor/sensory deficits, awake, wheel tuner II-XII nml as tested Comments: Well-developed well-nourished person in no acute distress HEENT: Normal EENT exam; PERRL, EOMI, HEAD is atraumatic. moist mucous membranes. Neck: Supple, normal range of motion without pain Back: Nontender, no CVA tenderness. Full range of motion Cardiovascular: Regular rate and rhythms no murmurs rubs Respiratory: No respiratory distress. Patient speaking in full complete sentences. Breath sounds clear to auscultation bilaterally: NO W/R/R Abdomen: Soft, nontender nondistended Extremity: No edema, full range of motion of extremities Neuro: Alert oriented x3, motor sensory normal,There were no obvious focal neurologic abnormalities. Skin: No appreciable rash on exposed skin, skin is warm and dry. Psych: Mood and affect is normal, memory and judgment is normal. SAD PERSONS SAD PERSONS Response Value Depression/Hopelessness? yes 2 Previous Attempts/Psych Care yes 1 Excessive Ethanol/Drug Use? yes 1 Rational Thinking Loss? yes 2 Single//? yes 1 Stated Future Intent? yes 2 Total 9 SAD PERSONS Done? yes (MARILYNN CUENCA,AMANDA) Progress Differential Diagnosis: drug intoxication, depression, anxiety Plan of Care: Orders Procedure Date/time Status Regular Diet 03/11 D Active ED CRISIS PSYCH CONSULT 03/11 1233 Active URINE DRUG SCREEN FOR ER ONLY 03/11 1208 Complete ETHANOL 03/11 1208 Complete COMPREHENSIVE METABOLIC PANEL 03/11 1208 Complete CBC WITHOUT DIFFERENTIAL 03/11 1208 Complete Laboratory Tests 03/11/16 1235: Serum Alcohol < 10.0 03/11/16 1235: Anion Gap 8, Estimated GFR > 60, BUN/Creatinine Ratio 12.5, Glucose 120 H, Calcium 9.3, Total Bilirubin 0.4, AST 43 H, ALT 47, Alkaline Phosphatase 120, Total Protein 7.3, Albumin 4.3, Globulin 3.0, Albumin/Globulin Ratio 1.4, CBC w Diff NO MAN DIFF REQ, RBC 4.67, MCV 79.9 L, MCH 26.4 L, RDW 18.1 H, MPV 7.4, Gran % 59.7, Lymphocytes % 31.5, Monocytes % 6.9, Eosinophils % 1.4, Basophils % 0.5, Absolute Granulocytes 4.4, Absolute Lymphocytes 2.3, Absolute Monocytes 0.5 , Absolute Eosinophils 0.1, Absolute Basophils 0, PUBS MCHC 33.1, Urine Opiates Screen < 100.00, Methadone Screen > 735 H, Barbiturate Screen 97, Ur Phencyclidine Scrn 7.90, Amphetamines Screen 205, U Benzodiazepines Scrn > 800 H, Urine Cocaine Screen > 1000 H, Urine Cannabis Screen < 5.00 labs ordered, old records reviewed, crisis consulted./ 03/11/2016 1:11:34 PM case discussed with and case d/w dr richards (AMANDA WALDROP) 03/11/2016 1:07:59 PM Decided to me by BANG Maher. Pending crisis evaluation, labs. 16:15 Patient to remain in the ER while we search for an inpatient crisis bed. Lexapro and hydroxyzine had been ordered for her as routine medications. Per Dr. Pham she is not to receive any benzodiazepines while in the emergency department. (HAILEY RICHARDS MD) Hand-Off Endorsed To: HAILEY RICHARDS MD Endorsed Time: 1310 Pending: consult (CRISIS) (AMANDA WALDROP) Hand-Off Endorsed To: MAHI CHRIS MD Endorsed Time: 1918 Pending: consult (CRISIS DISPOSITION) (HAILEY RICHARDS MD) Departure Departure Disposition: STILL A PATIENT Condition: Stable Clinical Impression Primary Impression: Major depression Secondary Impressions: Substance abuse Referrals: PATIENT HAS NO PRIMARY CARE DR (PCP/Family) Departure Forms: Customer Survey General Discharge Information (AMANDA WALDROP) PA/NAIL MAKING MACHINE SETTER Co-Sign Statement Statement: ED Attending supervision documentation- [x] I saw and evaluated the patient. I have also reviewed all the pertinent lab results and diagnostic results. I agree with the findings and the plan of care as documented in the PA's/NAIL MAKING MACHINE SETTER's documentation. [x] I have reviewed the ED Record and agree with the PA's/NAIL MAKING MACHINE SETTER's documentation. [] Additions or exceptions (if any) to the PAs/NAIL MAKING MACHINE SETTER's note and plan are summarized below: [] (HAILEY RICHARDS MD)
[2016-03-11 12:42] LABS: ABSOLUTE BASOPHIL COUNT 0 /CUMM (0.0-0.2); ABSOLUTE EOSINOPHIL COUNT 0.1 /CUMM (0.0-0.7); ABSOLUTE GRANULOCYTE CT 4.4 /CUMM (1.4-6.5); ABSOLUTE LYMPH COUNT 2.3 /CUMM (1.2-3.4); ABSOLUTE MONOCYTE COUNT 0.5 /CUMM (0.10-0.60); BASOPHIL % 0.5 % (0.0-2.0); EOSINOPHIL % 1.4 % (0-5); GRANULOCYTE % 59.7 % (42.2-75.2); HEMATOCRIT 37.3 % (37-47); MEAN CORPUSCULAR HGB 26.4 PG (27.0-31.0); MEAN CORPUSCULAR HGB CONC 33.1 G/DL (33.0-37.0); MEAN CORPUSCULAR VOLUME 79.9 FL (81.0-99.0); MEAN PLATELET VOLUME 7.4 FL (7.4-10.4); PLATELET COUNT 262 /CUMM (130-400); RBC DISTRIBUTION WIDTH 18.1 % (11.5-14.5); RED BLOOD CELL CT 4.67 /CUMM (4.20-5.40); WHITE BLOOD CELL COUNT 7.4 /CUMM (4.8-10.8)
[2016-03-11] MEDS ORDERED: VYVANSE70 M1 PO (12:55)
[2016-03-11] MEDS ORDERED: FIORICET 50-301 EACH PO (12:56)
--- NOTE | 2016-03-11 14:53 | ED PSY CRISIS COLLATERAL NOTE ---
Collateral Note Collateral Note Family/Inform/Heaven Contacts: Phone contact with pt's sister Sapphire . Sapphire states, pt has been doing this for a long time. She use drugs and overdoses on drugs with the intent to kills herself and "then she goes back to [place]". "She has nowhere to live and she keeps doing this, goes into a drug treatment program, leaves the program and goes back out and does drugs again". "Please tell her she can come here to stay with us". Sapphire offered to have the pt come and stay with her, however the pt refused to talk to Sapphire and she did not say yes to the offer to go and stay with her sister.
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
[2016-03-12 06:38] VITALS: BP 113/59
== END 2016-03-12 11:33 | disposition other institution (70) ==
LOC: ERH 11:56
PROVIDERS: Physician Assistant Medical
DX: F32.9 Major depressive disorder, single episode, unspecified (principal); F11.10 Opioid abuse, uncomplicated; F14.10 Cocaine abuse, uncomplicated
CPT/HCPCS: 80307; G0463; G0480

== ENCOUNTER 2016-05-02 06:48 | Inpatient (IN) | payer OTHER ==
[~2016-05-02] VITALS: Ht 149.9 cm; Wt 94.1 kg
--- NOTE | 2016-05-02 06:57 | NUR ---
TRIAGE: PATIENT TO ER FROM HOME REPORTING +SI, "I'M JUST ALWAYS SAD SO WHEN I'M SAD I USE AND THEN I GET SADDER AND I JUST DON'T WANT TO BE ALIVE ANYMORE. I HAVE NO HOPE AT ALL." REPORTS CURRENTLY "COMING DOWN FROM CRACK AND MY KIDS FATHER IS ON CRACK." ADMITS TO CUTTING SELF TODAY, NOTED W/ SUPERFICIAL SCRAPES TO L WRIST. REPORTS "MISSED METHADONE YESTERDAY, CAN YO ISABELALL TO VEFIRY THAT I AM ON METHADONE SO I CAN HAVE MY DOSE?"
--- NOTE | 2016-05-02 07:03 | NUR ---
PT AMBULATORY TO ROOM. CHANGED INTO BLUE SCRUBS. VERY TEARFUL AT THIS TIME.
--- NOTE | 2016-05-02 07:19 | ED PSYCHIATRIC COMPLAINT ---
See Addendum History of Present Illness General Chief Complaint: Psychiatric Related Complaint Stated Complaint: SAD AND SUICIDAL PER PT Source: patient, old records Exam Limitations: no limitations Vital Signs & Intake/Output Vital Signs & Intake/Output Vital Signs Date Time Temp Pulse Resp B/P Pulse O2 O2 Flow FiO2 Ox Delivery Rate 05/03 1004 98.6 89 20 124/64 98 Room Air 05/03 0736 97.0 81 18 126/94 98 Room Air 05/03 0628 98.0 83 16 98/54 98 Room Air 05/03 0304 97.7 74 16 112/68 99 05/02 1851 97.9 92 18 95/53 98 Room Air 05/02 1629 98.6 91 18 119/57 97 Room Air 05/02 1626 96.6 104 18 111/56 05/02 1348 96.6 05/02 1248 96.6 05/02 1217 104 18 111/56 96 Room Air ED Intake and Output 05/03 0000 05/02 1200 Intake Total Output Total Balance Patient 180 lb Weight Allergies Coded Allergies: trazodone (Intermediate, NIGHTMARES 05/02/16) aripiprazole (From Abilify) (STRANGE MENTAL FEELING 05/02/16) Reconcile Medications Butalb/Acetaminophen/Caffeine (Fioricet 50-300-40 MG Capsule) 50 MG-300 MG-40 MG CAPSULE 1 CAP PO PRN HEADACHE (Reported) Escitalopram Oxalate (Lexapro) 10 MG TABLET 1 TAB PO DAILY DEPRESSION ( Reported) Hydroxyzine Pamoate (Vistaril) 50 MG CAPSULE 2 CAP PO QPM SLEEP (Reported) Hydroxyzine Pamoate 50 MG CAPSULE 1 CAP PO DAILY PRN ANXIETY (Reported) Lisdexamfetamine Dimesylate (Vyvanse) 70 MG CAPSULE 1 CAP PO QAM MENTAL HEALTH (Reported) Methadone HCl 5 MG/5 ML SOLUTION 140 MG PO DAILY MENTAL HEALTH (Reported) Triage Note: TRIAGE: PATIENT TO ER FROM HOME REPORTING +SI, "I'M JUST ALWAYS SAD SO WHEN I'M SAD I USE AND THEN I GET SADDER AND I JUST DON'T WANT TO BE ALIVE ANYMORE. I HAVE NO HOPE AT ALL." REPORTS CURRENTLY "COMING DOWN FROM CRACK AND MY KIDS FATHER IS ON CRACK." ADMITS TO CUTTING SELF TODAY, NOTED W/ SUPERFICIAL SCRAPES TO L WRIST. REPORTS "MISSED METHADONE YESTERDAY, CAN YO CARLOS TO VEFIRY THAT I AM ON METHADONE SO I CAN HAVE MY DOSE?" Triage Nurses Notes Reviewed? yes : No Patient currently breastfeeds: No HPI: Pt presents to the ER with increasing depression and suicidal thoughts. No plan. Pt states that when she is admitted, she she begins to feel better however upon discharge she is slowly starts to feel more more depressed. Patient states that when that occurs she is on crack cocaine to numb her feelings. Patient states that she has been using crack for the past 4 days and has been unable to sleep for the past 3 days. Patient states that she has been so depressed she can't even get out of bed. Patient has not taken a shower or brushed her teeth that she just has no desire to do so. Patient has no specific plan. Patient denies any homicidal ideations. Patient denies any hallucinations. (DOT RODRÍGUEZ,MAHI Persaud) Past History Travel History Traveled to [place] past 21 day No Medical History Any Pertinent Medical History? 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 Relation not specified for: FH: depression Hx Contributory? No (DOT RODRÍGUEZ,MAHI Persaud) Review of Systems Review of Systems Constitutional: Reports: no symptoms. EENTM: Reports: see HPI, throat pain. Respiratory: Reports: no symptoms. Cardiovascular: Reports: no symptoms. GI: Reports: no symptoms. Genitourinary: Reports: no symptoms. Musculoskeletal: Reports: no symptoms. Skin: Reports: no symptoms. Neurological/Psychological: Reports: see HPI, anxiety, depressed. Hematologic/Endocrine: Reports: no symptoms. Immunologic/Allergic: Reports: no symptoms. All Other Systems: Reviewed and Negative (MAHI CHRIS MD) Physical Exam Physical Exam General Appearance: well developed/nourished, alert, awake, anxious, mild distress Head: atraumatic, normal appearance Eyes: Bilateral: PERRL, EOMI. Ears, Nose, Throat: tonsillar exudate, tonsillar swelling Neck: lymphadenopathy (R), lymphadenopathy (L) Respiratory: normal breath sounds, chest non-tender, no respiratory distress, lungs clear Cardiovascular: regular rate/rhythm, normal peripheral pulses Gastrointestinal: normal bowel sounds, soft, non-tender, no organomegaly Extremities: normal range of motion Neurological/Psychiatric: no motor/sensory deficits, awake, alert, TEARFUL Appearance/Memory/Insight: appropriate appearance, appropriate insight Behavoir/Eye Contact/Speech: cooperative, normal speech, good eye contact Thoughts/Hallucinations: normal thought pattern, no apparent hallucination Skin: intact, normal color, warm/dry SAD PERSONS Done? CRISIS CONSULT OBTAINED (MAHI CHRIS MD) Progress Differential Diagnosis: drug intoxication, drug overdose, drug withdrawal, electrolyte abnormality Plan of Care: Orders Procedure Date/time Status Regular Diet 05/02 D Active Hand-Off Endorsed To: JUANJO JOSEPH MD Endorsed Time: 2018 Pending: consult (MAHI CHRIS MD) Hand-Off Endorsed To: AFSANEH GUILLEN DO Endorsed Time: 0700 Pending: other (re eval for rehab) (JUANJO JOSEPH MD) Departure Departure Disposition: STILL A PATIENT Condition: Stable Clinical Impression Primary Impression: Depression Secondary Impressions: Strep pharyngitis Referrals: PATIENT HAS NO PRIMARY CARE DR (PCP/Family) Departure Forms: Customer Survey General Discharge Information (MAHI CHRIS MD) Departure Comments 05/03/16 Patient signed out to me by Dr. Joseph at 7 AM. She is pending crisis disposition. (AFSANEH GUILLEN DO) 85, Urine Cocaine Screen > 1000 H, Urine Cannabis Screen < 5.00 Hand-Off Endorsed To: JUANJO JOSEPH MD Endorsed Time: 2018 Pending: consult (MAHI CHRIS MD) Hand-Off Endorsed To: AFSANEH GUILLEN DO Endorsed Time: 0700 Pending: other (re eval for rehab) (JUANJO JOSEPH MD) Departure Departure Disposition: STILL A PATIENT Condition: Stable Clinical Impression Primary Impression: Depression Secondary Impressions: Strep pharyngitis Referrals: PATIENT HAS NO PRIMARY CARE DR (PCP/Family) Departure Forms: Customer Survey General Discharge Information (DOT RODRÍGUEZ,MAHI Persaud)
--- NOTE | 2016-05-02 07:26 | NUR ---
URINE SENT TO LAB. ONLY CLEAR TUBE WAS ABLE TO OBTAIN.
--- NOTE | 2016-05-02 07:28 | NUR ---
[facility] CALLED ([address] LOCATION) , SPOKE WITH RENETTA MOY RN TO VERIFY METHADONE DOSE, PT LAST SEEN THERE ON 04/30/16, DUE FOR DECREASE DOSE OF 140MG PO ON 05/01/16 BUT DID NOT SHOW UP FOR APPOINTMENT. DR CHRIS IN TO EVAL AND NGUYEN. BI MARTINEZ AT BEDSIDE FOR EKG.
--- NOTE | 2016-05-02 07:43 | NUR ---
MEDICATED ORDERED WITH ATARAX 50MG PO,METHADONE 140MG PO, AND CATAPRES 0.1MG PO, TOLERATED WELL. RAPID STREP/THROAT CULTURE OBTAINED AND SENT TO LAB.
--- NOTE | 2016-05-02 07:51 | NUR ---
BLOOD DRAWN AND SENT TO LAB. LAV,SST,BLUE
[2016-05-02 08:13] LABS: ABSOLUTE BASOPHIL COUNT 0 /CUMM (0.0-0.2); ABSOLUTE EOSINOPHIL COUNT 0 /CUMM (0.0-0.7); ABSOLUTE GRANULOCYTE CT 15.3 /CUMM (1.4-6.5); ABSOLUTE LYMPH COUNT 0.8 /CUMM (1.2-3.4); ABSOLUTE MONOCYTE COUNT 0.8 /CUMM (0.10-0.60); BASOPHIL % 0.2 % (0.0-2.0); EOSINOPHIL % 0.2 % (0-5); HEMATOCRIT 38.3 % (37-47); MEAN CORPUSCULAR HGB 27.2 PG (27.0-31.0); MEAN CORPUSCULAR HGB CONC 33.4 G/DL (33.0-37.0); MEAN CORPUSCULAR VOLUME 81.3 FL (81.0-99.0); MEAN PLATELET VOLUME 7.6 FL (7.4-10.4); PLATELET COUNT 272 /CUMM (130-400); RED BLOOD CELL CT 4.72 /CUMM (4.20-5.40)
[2016-05-02 08:14] LABS: GRANULOCYTE % 89.8 % (42.2-75.2)
[2016-05-02] MEDS ORDERED: LEXAPRO10 M1 PO (08:20)
[2016-05-02] MEDS ORDERED: VISTARIL50 M1 PO (08:21)
[2016-05-02] MEDS ORDERED: HYDROXYZINE PAM50 M1 PO (08:22)
--- NOTE | 2016-05-02 08:37 | NUR ---
MED ORDERED WITH AMOXICILLIN 500MG PO AND GI COCKTAIL FOR C/O SORE THROAT, TOLERATED WELL. FINGERFOOD BREAKFAST TRAY ORDERED "I AM SO HUNGRY, I'M STARVED". SEVERAL GLASSES OF WATER AND APPLE JUICES, VICKI CRACKERS GIVEN WHILE WAITING FOR BREAKFAST.
--- NOTE | 2016-05-02 11:00 | NUR ---
PT NAPPING COMFORTABLY AT THIS TIME. REGULAR RESPIRATIONS NOTED, SITTER REMAINS AT [facility]ORWAY.
--- NOTE | 2016-05-02 11:36 | NUR ---
FINGER FOOD LUNCH TRAY GIVEN.
--- NOTE | 2016-05-02 13:02 | ED PSYCH CRISIS CONSULTATION ---
See Addendum Crisis Consult Basic Assessment Date of Consult: 05/02/16 Responsible Person/Accompanied By: By herself Insurance Authorization: Insurance #1: Insurance name: LONNY PHAN Phone number: Policy number: [id number] Group number: Authorization number: ED Provider: Patient's ED Provider: DOT RODRÍGUEZ,MAHI Persaud Primary Care Physician: Patient's PCP: PATIENT HAS NO PRIMARY CARE DR PCP's Phone Number: Current Psychiatrist: DANIELITO dumont Chief Complaint: Psychiatric Related Complaint Patient's Quote: "Im a mess" Present Illness: Pt is a 35 year old female, she has an extensive drug use history, most recently choosing to leave the recovery house in [place] to spend the past 2 days using crack cocaine with her children father. Pt reports this has been her cycle, "the last time I was sober I had my kids and family and he was out of my life". Pt can not recall how long ago this was. Pt reports she wants to go far away, she is aware that something has to change for a long period of time, and maintaining soberiety is crucial in order for her to begin to feel less depressed and hopeless. Pt reports she feels unmotivated, she is open to suggestions for placement. We explored the possibility of working with [facility] to find an appropritae placement. Pt is suicidal due to lack of resources for recovery pt looking for rehab beds. Patient's Address: [address] [place] [address] Other Phone Number: Who Do You Live With? Friend Family/Informants Interviewed: Called [facility] to provide clinical information spoke with paxton Borja. Colaborated with program to help pt get the best clinical care. Huong said she would call us tomorrow if she makes any efforts to find a rehab bed. Allergies - Coded Allergies: trazodone (Intermediate, NIGHTMARES 05/02/16) aripiprazole (From Abilify) (STRANGE MENTAL FEELING 05/02/16) Current Medications - Scheduled Medications Escitalopram Oxalate (Lexapro) 10 MG TABLET 1 TAB PO DAILY DEPRESSION ( Reported) Entered as Reported by NEGAR GORDON on 05/02/16 0820 Hydroxyzine Pamoate (Vistaril) 50 MG CAPSULE 2 CAP PO QPM SLEEP (Reported) Entered as Reported by NEGAR GORDON on 05/02/16 0821 Lisdexamfetamine Dimesylate (Vyvanse) 70 MG CAPSULE 1 CAP PO QAM MENTAL HEALTH (Reported) Entered as Reported by NEGAR GORDON on 03/11/16 1255 Methadone HCl 5 MG/5 ML SOLUTION 140 MG PO DAILY MENTAL HEALTH (Reported) Entered as Reported by TERESA CORDOVA on 02/20/16 1645 Scheduled PRN Medications Butalb/Acetaminophen/Caffeine (Fioricet 50-300-40 MG Capsule) 50 MG-300 MG-40 MG CAPSULE 1 CAP PO PRN HEADACHE (Reported) Entered as Reported by NEGAR GORDON on 03/11/16 1256 Hydroxyzine Pamoate 50 MG CAPSULE 1 CAP PO DAILY PRN ANXIETY (Reported) Entered as Reported by NEGAR GORDON on 05/02/16 0822 Laboratory Results: Laboratory Tests 05/02/16 0729: Anion Gap 12, Estimated GFR > 60, BUN/Creatinine Ratio 13.8, Glucose 124 H, Calcium 9.7, Total Bilirubin 0.6, AST 27, ALT 32, Alkaline Phosphatase 136 H, Total Protein 7.6, Albumin 4.3, Globulin 3.3, Albumin/Globulin Ratio 1.3, Total Beta HCG NEGATIVE, CBC w Diff MAN DIFF ORDERED, RBC 4.72, MCV 81.3, MCH 27.2, RDW 15.0 H, MPV 7.6, Gran % 89.8 H, Lymphocytes % 4.9 L, Monocytes % 4.9, Eosinophils % 0.2, Basophils % 0.2, Absolute Granulocytes 15.3 H, Absolute Lymphocytes 0.8 L, Absolute Monocytes 0.8 H, Absolute Eosinophils 0, Absolute Basophils 0, Platelet Estimate VERIFIED BY SMEAR, Anisocytosis 1+, PUBS MCHC 33.4, Serum Alcohol < 10.0 05/02/16 0704: Urine Opiates Screen < 100.00, Methadone Screen > 735 H, Barbiturate Screen 91, Ur Phencyclidine Scrn 10.20, Amphetamines Screen 213, U Benzodiazepines Scrn < 85, Urine Cocaine Screen > 1000 H, Urine Cannabis Screen < 5.00 Past History Past Medical History Neurological: NONE, migraine EENT: NONE Cardiovascular: NONE Respiratory: NONE Gastrointestinal: NONE, constipation Hepatic: NONE Renal: NONE Musculoskeletal: NONE Psychiatric: anxiety, depression, insomnia, opioid dependence, substance abuse, METHADONE MAINTENANCE ADD Endocrine: NONE Blood Disorders: NONE Cancer(s): NONE 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 Physical Limitations (Interventions): None identified Psychiatric Treatment History Psych Treatment Psychiatric Treatment Yes Inpatient Treatment Yes Outpatient Treatment Yes Location of Treatment [facility] Reason for Treatment depression/polysubstance Dates of Treatment most recent inpatient currently in [facility] Response to Treatment unknown Diagnosis by History: Depression, polysubstance abuse Substance Use/Abuse History Drug Use/Abuse 1 Substances Used/Abused Yes Substance Used/Abused Crack Cocaine Drug Use/Abuse 2 Substances Used/Abused Yes Substance Used/Abused Other (list in comments) (methadone) Substance Abuse Treatment Substance Abuse Treatment Past Substance Abuse [place] Yes Current Mental Status Mental Status Orientation: Person, Place, Situation DSM5/PS Stressors/Medical Prob Diagnosis' (DSM 5, Stressors, Medical): Bipolar D/O Unspecified F31.9 Polysubstance D/O Current GAF: 30 Departure Disposition Psych Medical Clearance Date: 05/02/16 Medically Cleared at: 1244 Time Started: 1244 Time Ended: 1345 Psychiatrist Consulted: Yobany Pham MD Date Disposition Established: 05/02/16 Time Disposition Established: 134 Plan for Disposition - Modality: hold over Facility: hold over Rationale for Disposition: consulted with Dr. Pham pt to be held over in an effort to work with [facility] and find pt a rehab bed. Referrals PATIENT HAS NO PRIMARY CARE DR (PCP/Family)
--- NOTE | 2016-05-02 13:05 | NUR ---
CRISIS IN TO EVAL.
--- NOTE | 2016-05-02 14:20 | NUR ---
PT AMBULATORY TO [facility], ASKING FOR "SOMETHING FOR ANXIETY, JITTERY". DR CHRIS AWARE, NO NEW ORDERS AT THIS TIME.
--- NOTE | 2016-05-02 14:48 | NUR ---
PT REQUESTING MASHED POTATOES AND 2 SOUPS FOR DINNER DUE TO STREP THROAT. RN NOTIFIED.
--- NOTE | 2016-05-02 15:32 | NUR ---
PT OFFERED REPEAT DOSE OF VISTARIL, PT STATING "IT DIDN'T WORK BEFORE, WHY CAN'T I HAVE ATIVAN, I DON'T UNDERSTAND". DR CHRIS AWARE.
--- NOTE | 2016-05-02 15:52 | NUR ---
MED WITH AMOXICILLIN 500MG PO TOLERATED WELL. NOW PT ASKING "I ALSO NEED MY FIORACET" DR CHRIS AWARE.
--- NOTE | 2016-05-02 16:27 | NUR ---
MED ORDERED WITH FIORACET 1 TAB PO, AND CATAPRES 0.1MG PO AND ATARAX 25MG PO TOLERATED WELL. PT RESTING MORE COMFORTALBY WATCHING TV AT THIS TIME.
--- NOTE | 2016-05-02 21:14 | NUR ---
TO STAY OVERNIGHT FOR DETOX BED PLACEMENT IN AM.
--- NOTE | 2016-05-02 22:20 | NUR ---
MEDICATED WITH PO AMOXIL,500 MG AND 600 MG OF MOTRIN AND 1 FIORCET PER ORDER. PT BILAT ELBOWS REDDENED, REFUSES CREAM REQUESTS LIGHT TO BE LEFT OFF IT HURTS HER EYES AND MAKES CARRINGTON WORSE. PT AWARE THAT LIGHT NEEDS TO BE ON DURING MED ADMINISTRATION.
--- NOTE | 2016-05-02 23:50 | NUR ---
PATIENT SLEEPING W/ REGULAR RESPIRATIONS NOTED. SITTER REMAINS AT DOORWAY.
--- NOTE | 2016-05-03 00:54 | NUR ---
PATIENT NOTED TO BE SLEEPING, SELF TURNING ON STRETCHER W/O DIFFICULTY. LIGHTS DIMMED. SITTER REMAINS W/ PATIENT.
--- NOTE | 2016-05-03 02:01 | NUR ---
PATIENT CONTINUES TO SLEEP AT THIS TIME W/ REGULAR RESPIRATIONS NOTED. SITTER REMAINS W/ PATIENT.
--- NOTE | 2016-05-03 03:44 | NUR ---
PATIENT SLEEPING AT THIS TIME, REGULAR RESPIRATIONS NOTED. SITTER REMAINS W/ PATIENT.
--- NOTE | 2016-05-03 05:17 | NUR ---
PATIENT CONTINUES TO SLEEP AT THIS TIME W/ REGULAR RESPIRATIONS NOTED. SITTER REMAINS W/ PATIENT. LIGHTS REMAIN DIMMED. NOTED TO BE TURNING/ REPOSITIONING SELF ON BED IN ROOM.
--- NOTE | 2016-05-03 06:15 | NUR ---
PATIENT REQUESTING METHADONE AT THIS TIME, MEDICATED W/ METHADONE ON 05/02/16 AT 0742, MD JOSEPH AWARE. ORDER WILL BE PLACED FOR 0800 PER MD JOSEPH. SITTERS REMAINS W/ PATIENT. LIGHTS DIMMED TO DECREASE STIMULI.
--- NOTE | 2016-05-03 06:43 | NUR ---
PATIENT INFORMED WAITING FOR METHADONE AT 0800 PER ORDER PLACED BY MD JOSEPH. PATIENT AWARE THAT SHE CANNOT RECIEVE MED PRIOR TO 0800 PER MD ORDERS.
--- NOTE | 2016-05-03 07:20 | NUR ---
ASSUMED CARE OF THIS PATIENT AT THIS TIME. PT AWAKENED FOR VITAL SIGNS, VSS. REQUESTS AM METHADONE DOSE. ADVISED WILL ADMINISTER SAME CLOSED TO 08:00. SITTER REMAINS AT DOOR.
--- NOTE | 2016-05-03 08:55 | NUR ---
pt medicated with methadone as per orders
--- NOTE | 2016-05-03 09:35 | NUR ---
pt medicated with amoxicillin, fioricet and motrin as per orders. pt requesting hot soup and soft foods for lunch r/t sore throat from strep throat diagnosis. dr frausto aware of same. [facility] hospital policy is no hot foods for crisis patients. pt requests to speak with dr frausto, dr frausto made aware of same.
--- NOTE | 2016-05-03 09:40 | NUR ---
spoke with dining services for pudding and scrambled eggs for patient to be delivered [place].
--- NOTE | 2016-05-03 11:10 | NUR ---
ASSUMED CARE OF THIS PT FROM DANIELLA DALLAS.
--- NOTE | 2016-05-03 11:15 | NUR ---
CARE TRANSFERRED TO DANIELLA XAVIER
--- NOTE | 2016-05-03 12:39 | NUR ---
PT REPORTS ANXIETY, REQUESTING ATARAX. WILL MAKE DR GUILLEN AWARE.
--- NOTE | 2016-05-03 13:30 | NUR ---
PT MEDICATED WITH ATARAX 25MG AND CLONIDINE 0.1MG FOR ANXIETY
--- NOTE | 2016-05-03 13:41 | NUR ---
PT OBSERVED IN CRISIS OFFICE. PT AMBULATORY TO PHONE TO CALL FOR AFTERCARE TREATMENT.
--- NOTE | 2016-05-03 15:01 | ED PSYCHIATRIST/APRN CONSULT ---
Psychiatrist/[employer] ED Consult Assessment and Plan: Patient seen at 2:18 pm. 35 yo WF with hx depression vs. bipolar d/o and PSD. Presented 05/02/16 reporting feeling sad and having SI. Reported coming down from crack. Reported she had superficially cut her wrist. Past psychiatric hx: Was living at [facility] in [place] and going to OPT at [facility]. Was at [facility]'s Observation Unit 1 month ago. Hx 2 suicide attempts with benzodiazepines. Scratched left wrist with crack pipe stem 2 nights ago. Substance abuse hx: Tobacco at 5-8 cigs/day. Denies alcohol and MJ. Crack: $3000 smoked/3 days. Klonopin 8 mg at once, 20 mg benzodiazepines/day. Drug screen positive for methadone and cocaine. Rx: Lexapro 20 mg daily, "not working." Was on Vyvanse. Vistaril 50 mg bid prn and 200 mg qhs Methadone 140 mg daily. Allergies: Abilify makes her feel weird and tingly. PMH: Bad migraines, 3 c-sections, overweight, food poisoning last week. Family psychiatric and substance abuse hx: Son, 15 yo, ADHD. Father ?bipolar. Mother anxiety. Aunts, both sides, depression. Aunts and uncles, both sides, alcoholism. Great aunt suicided. Social hx: Living with her son's father in a hotel. Parents are in [place] with patient' s 3 children. 10th grade education. No income. Hx Larcency 6 and violation of protective order. Mental status examination: WF dressed in hospital gown, overweight, sitting on bed in ER, eating. Calm, polite and cooperative. No psychomotor agitation/retardation. Speech normal in volume, rate and tone. Affect is calm and blunted. Reports she is here for the "same thing, I just can't stay mentally stable." Reports she became depressed and was sleeping all day and not showering. Went back to living with son's father for the past week and she reports that they were using crack. Reports she had been clean for ~1 month. Was also using Xanax and Klonopin. Reports her 3 children, ages 15, 2 and 5 months, are in foster care with her parents. Patient's 5 month old daughter is on a feeding tube because she hasn't been eating. Patients feels that she (patient) is just existing every day. States she can't get organized and can't function. Mood: "very aggravated, tense, anxious, jittery, nervous, can't sit still, my mind races." Sad -12/03. Anxiety 12/03. Feels "extremely" hopeless, helpless, worthless and guilty. Reports contingent SI that occurs when she has no hope. Reports that if placed, she would have hope and would then not have SI and could give a safety promise. Denies HI, AH, VH, PI and magical mcguire. There is no apparent thought disorder or delusions. Insight and judgment are poor. Does not know the exact date in April of 2016. Otherwise Ox3. Cognition is grossly intact and at usual baseline. Estimate of intellectual functioning is average. Sleep: horrible. Appetite: easily gets full and then feels hungry 1 hour later. Energy: none but feels jittery. IMPRESSION: Major depression, recurrent, severe. Polysubstance dependence. We are looking into rehab placement options. SI is contingent when feeling hopeless. If placed, states she will have hope and not feel suicidal. I have ordered methadone, neurontin prn and Lexapro 20 mg daily. Will hold off on Atarax because of QT prolongation risk along with methadone. ADDENDUM: Placement efforts today have been unsuccessful. Patient is at risk for suicide if discharged to the street. Will admit to [facility] with plan to place at a rehab next week.
--- NOTE | 2016-05-03 15:49 | NUR ---
PT HAD ANGRY OUTBURST AND WAS YELLING OBSCENITIES IN BH AREA. SECURITY PRESENT, ALSO KADE CAMACHO, DR GUILLEN AND SEVERAL NURSES AND SITTERS. DR GUILLEN WAS ABLE TO DE-ESCALATE PT IN ROOM 15. PT HAS BEEN WORKING ON HER D/C PLANS THIS AFTERNOON AND APOLOGIZED TO THIS RN SAYING THAT SHE WAS "FRUSTRATED".
--- NOTE | 2016-05-03 17:24 | NUR ---
PT MEDICATED WITH NEURONTIN 300MG FOR ANXIETY. PT CALM AND COOPERATIVE AT THIS TIME. PT IS ANTICIPATING TRANSFER DOWN TO [facility] THIS EVENING.
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
--- NOTE | 2016-05-03 19:24 | NUR ---
PT SLEEPING AT THIS TIME, EVIDENCED BY SNORING. SITTER AT DOOR FOR SAFETY.
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
[2016-05-03 20:52] VITALS: BP 113/62
--- NOTE | 2016-05-03 23:04 | NUR ---
35 YEAR OLD FEMALE PATIENT KNOWN TO [facility] ADMITTED DUE TO BIPOLAR DEPRESSION, SUICIDAL IDEATION, AND COCAINE ABUSE; PATIENT REPORTED FRUSTRATION DUE TO NOT BEING ABLE TO GET INTO REHAB AND FEELING HOPELESS; SHE VERBALIZED PLANS OF JUMPING IN FRONT OF A TRAIN OR OVERDOSING; SHE DENIED INTENTION OF HARMING HERSELF WHILE IN THE HOSPITAL; SHE IS ALERT AND ORIENTED X3, SLIGHTLY DEPRESSED AFFECT, IRRITABILITY; VITAL SIGNS WNL; SKIN INTACT; H&P DONE BY DR. JADE.
--- NOTE | 2016-05-03 23:14 | History & Physical ---
General Information and HPI MD Statement: I have seen and personally examined GIANNA BARKSDALE and documented this H&P. The patient is a 35 year old F who presented with a patient stated chief complaint of [Depression and suicidal ideation]. Source of Information: patient Exam Limitations: no limitations History of Present Illness: 35 yo morbidly obese F with h/o migraine, depression, suicidality in the past, PTSD, polysubstance abuse, chronic opioid dependence on methadone, multiple admissions to Inpatient Psych for depression, is here for worsening depression and suicidal thoughts. See Psych H and P for more details. She reports an attack of food poisoning (nausea and vomiting) 1 week ago that has now resolved. She is very anxious and feels chest heaviness/ dyspneic during these episodes. She also reports 1 week h/o sore throat, difficulty swallowing and cough productive of green phlegm. She gets frequent migraine attacks and reports that Fioricet works for her. Currently she complains of migraine headache and photophobia, requesting meds. She uses cocaine and benzos daily. Allergies/Medications Allergies: Coded Allergies: trazodone (Intermediate, NIGHTMARES 05/02/16) aripiprazole (From [facility]) (STRANGE MENTAL FEELING 05/02/16) Home Med list Butalb/Acetaminophen/Caffeine (Fioricet 50-300-40 MG Capsule) 50 MG-300 MG-40 MG CAPSULE 1 CAP PO PRN HEADACHE (Reported) Escitalopram Oxalate (Lexapro) 10 MG TABLET 1 TAB PO DAILY DEPRESSION ( Reported) Hydroxyzine Pamoate (Vistaril) 50 MG CAPSULE 2 CAP PO QPM SLEEP (Reported) Hydroxyzine Pamoate 50 MG CAPSULE 1 CAP PO DAILY PRN ANXIETY (Reported) Lisdexamfetamine Dimesylate (Vyvanse) 70 MG CAPSULE 1 CAP PO QAM MENTAL HEALTH (Reported) Methadone HCl 5 MG/5 ML SOLUTION 140 MG PO DAILY MENTAL HEALTH (Reported) Compliance With Home Meds: POOR Past History Travel History Traveled to [place] past 21 day No Medical History Neurological: migraine EENT: NONE Cardiovascular: NONE Respiratory: NONE Gastrointestinal: constipation Hepatic: NONE Renal: NONE Musculoskeletal: NONE Psychiatric: anxiety, depression, insomnia, opioid dependence, substance abuse, METHADONE MAINTENANCE ADD Endocrine: NONE Blood Disorders: NONE Cancer(s): NONE CLINICAL EDUCATION MANAGER/Reproductive: NONE History of MRSA: No History of VRE: No History of CDIFF: No Isolation History: Standard Surgical History Surgical History: Past Family/Social History Family History Relations & Conditions if any FATHER (DM). Relation not specified for: FH: depression Psychosocial History Where do you live? Home Who Do You Live With? self Services at Home: None Primary Language: Bangladeshi Smoking Status: Current Everyday Smoker ETOH Use: denies use Illicit Drug Use: cocaine, benzodiazepines Functional Ability ADLs Independent: dressing, eating, toileting, bathing. Ambulation: independent IADLs Independent: shopping, housework, finances, food prep, telephone, transportation. 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 Denies: fever, weakness. EENTM: Reports: no symptoms. Cardiovascular: Reports: chest pain (when she is anxious). Denies: edema, palpitations. Respiratory: Reports: cough, short of breath, sputum production. Denies: wheezing. GI: Reports: see HPI. Genitourinary: Reports: no symptoms. Neurological/Psychological: Reports: see HPI. All Other Systems: Reviewed and Negative Exam & Diagnostic Data Last 24 Hrs of Vital Signs/I&O Vital Signs Date Time Temp Pulse Resp B/P Pulse O2 O2 Flow FiO2 Ox Delivery Rate 05/04 2051 97.7 82 18 113/62 05/04 2031 98.0 68 16 101/45 95 Room Air 05/03 2002 Room Air 05/03 1734 98.2 81 18 107/61 98 Room Air 05/03 1240 Room Air 05/03 1004 98.6 89 20 124/64 98 Room Air 05/03 0736 97.0 81 18 126/94 98 Room Air 05/03 0628 98.0 83 16 98/54 98 Room Air 05/03 0304 97.7 74 16 112/68 99 Intake & Output 05/04 0800 05/04 0000 05/03 1600 Intake Total Output Total Balance Patient 207 lb Weight Physical Exam General Appearance Alert, Oriented X3, Cooperative, No Acute Distress Skin No Rashes, No Breakdown HEENT Atraumatic, PERRLA, EOMI, Mucous Membr. moist/pink, Bilateral tonsilar enlargement+, mild erythema noted. Neck Supple Lymphatic Cervical nl Cardiovascular Regular Rate, Normal S1, Normal S2, No Murmurs Lungs Clear to Auscultation, Normal Air Movement Abdomen Normal Bowel Sounds, Soft, No Tenderness Neurological Exam Findings: Normal Gait, Normal Speech, Strength at 5/5 X4 Ext, Cranial Nerves 3-12 NL, Reflexes 2+ Cranial Nerves II through XII: Grossly intact Extremities No Edema, Normal Pulses, No Tenderness/Swelling Vascular Normal Pulses, Pulses Symmetrical Last 24 Hrs of Labs/Charanjit: Laboratory Tests 05/02 05/02 0729 0704 Chemistry Sodium (137 - 145 mmol/L) 140 Potassium (3.5 - 5.1 mmol/L) 3.7 Chloride (98 - 107 mmol/L) 107 Carbon Dioxide (22 - 30 mmol/L) 22 Anion Gap (5 - 16) 12 BUN (7 - 17 mg/dL) 11 Creatinine (0.5 - 1.0 mg/dL) 0.8 Estimated GFR (>60 ml/min) > 60 BUN/Creatinine Ratio (7 - 25 %) 13.8 Glucose (65 - 99 mg/dL) 124 H Calcium (8.4 - 10.2 mg/dL) 9.7 Total Bilirubin (0.2 - 1.3 mg/dL) 0.6 AST (14 - 36 U/L) 27 ALT (9 - 52 U/L) 32 Alkaline Phosphatase (<127 U/L) 136 H Total Protein (6.3 - 8.2 g/dL) 7.6 Albumin (3.5 - 5.0 g/dL) 4.3 Globulin (1.9 - 4.2 gm/dL) 3.3 Albumin/Globulin Ratio (1.1 - 2.2 %) 1.3 Total Beta HCG (NEGATIVE) NEGATIVE Hematology CBC w Diff MAN DIFF ORDERED WBC (4.8 - 10.8 /CUMM) 17.0 H RBC (4.20 - 5.40 /CUMM) 4.72 Hgb (12.0 - 16.0 G/DL) 12.8 Hct (37 - 47 %) 38.3 MCV (81.0 - 99.0 FL) 81.3 MCH (27.0 - 31.0 PG) 27.2 RDW (11.5 - 14.5 %) 15.0 H Plt Count (130 - 400 /CUMM) 272 MPV (7.4 - 10.4 FL) 7.6 Gran % (42.2 - 75.2 %) 89.8 H Lymphocytes % (20.5 - 51.1 %) 4.9 L Monocytes % (1.7 - 9.3 %) 4.9 Eosinophils % (0 - 5 %) 0.2 Basophils % (0.0 - 2.0 %) 0.2 Absolute Granulocytes (1.4 - 6.5 /CUMM) 15.3 H Absolute Lymphocytes (1.2 - 3.4 /CUMM) 0.8 L Absolute Monocytes (0.10 - 0.60 /CUMM) 0.8 H Absolute Eosinophils (0.0 - 0.7 /CUMM) 0 Absolute Basophils (0.0 - 0.2 /CUMM) 0 Platelet Estimate (ADEQUATE) VERIFIED BY SMEAR Anisocytosis 1+ PUBS MCHC (33.0 - 37.0 G/DL) 33.4 Toxicology Urine Opiates Screen (>2000 NG/ML) < 100.00 Methadone Screen (>300 NG/ML) > 735 H Barbiturate Screen (>200 NG/ML) 91 Ur Phencyclidine Scrn (>25 NG/ML) 10.20 Amphetamines Screen (>1000 NG/ML) 213 U Benzodiazepines Scrn (>200 NG/ML) < 85 Urine Cocaine Screen (>300 NG/ML) > 1000 H Urine Cannabis Screen (>50 NG/ML) < 5.00 Serum Alcohol (<10 MG/DL) < 10.0 Diagnostic Data EKG Results Sinus tachycardic@ 101, no acute ST-T changes, QTc 452. CXR Results -- Assessment/Plan Assessment: 35 yo F admitted to Inpatient Psychiatry for management of depression and suicidal ideation. 1. Management per Psych team. 2. Chronic opioid dependence. Ct. methadone. 3. Strep pharyngitis. Ct. amoxicillin 500 mg BID for 10 days. Chlorseptic lozenges, warm salt water gargles to help soothe and ease swallowing. 4. Leukocytosis likely reactive in the setting of pharyngitis. Patient reports cough productive of green phlegm. Will obtain CXR to rule out a pneumonia. 5. Migraine headache. Ct. Fioricet as needed. Could try Imitrex, however patient reports it does not work well for her. 6. Smoking cessation counseling, nicotine patch. DVT ppx - low risk, early ambulation. As Ranked By This Provider Problem List: 1. Substance abuse 2. Suicidal ideation 3. Major depression 4. Strep pharyngitis Miscellaneous Miscellaneous Documentation Attending Case Discussed With: ROSALVA RODRÍGUEZ,MOIRA Primary Care Physician: PATIENT HAS NO PRIMARY CARE DR Patient sees these Specialists -- Level of Patient Care: GUY Ambrosio Attending MD Review Statement Attending Statement Attending MD Statement: examined this patient, discuss w/resident/PA/COMMISSIONED FIRE OFFICER
--- NOTE | 2016-05-03 23:15 | Admission Certification ---
Admission Certification Certification Statement - As attending physician, I certify that at the time of - admission, based on clinical presentation, severity of - symptoms, need for further diagnostic testing and - therapeutic interventions, and risk of adverse outcomes - without in-hospital treatment, in my clinical assessment, - this patient requires an acute hospital stay for a minimum - of two nights or longer. I have also considered psychsocial - factors such as support system, advanced age, financial - issues, cognitive issues, and failed out-patient treatments, - past re-admission history, safety of patient, and lack of - compliance as applicable. Specific rationale supporting this admission is: Major depression, polysubstance abuse, suicidality.
--- NOTE | 2016-05-04 07:06 | NUR ---
PATIENT SLEPT ALL NIGHT.
[2016-05-04 07:55] VITALS: BP 137/58
--- NOTE | 2016-05-04 11:24 | RADIOLOGY REPORT ---
EXAMINATION: XR CHEST CLINICAL INFORMATION: Strep pharyngitis. Complaining of productive cough. Evaluate for pneumonia. COMPARISON: Chest x-ray dated 03/25/2013. TECHNIQUE: 2 views of the chest were obtained. FINDINGS: The cardiomediastinal silhouette is within normal limits in size. Lungs bilaterally are symmetrically expanded and clear. No effusion or pneumothorax is seen. Bony structures are unremarkable. IMPRESSION: No evidence of pneumonia.
[2016-05-04 12:52] VITALS: BP 112/74
--- NOTE | 2016-05-04 15:31 | NUR ---
PT IS COMPLIANT AND COOPERATIVE. MOOD IS STABLE WITH A CONSTRICTED AFFECT. PT DENIES SI AT THIS TIME, NO COMPLAINTS OFFERED. PT HAS BEEN SLEEPING IN BED FOR MAJORITY OF SHIFT. PT IS PRESENT ON UNIT FOR MEALS AND VITALS. PT INTERACTING WITH OTHERS WHEN PRESENT ON UNIT. PT HAS REFUSED GROUPS, VITALS ARE STABLE, APPETITE IS GOOD.
[2016-05-04 16:02] VITALS: BP 126/73
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
--- NOTE | 2016-05-04 18:13 | NUR ---
Patient is A&O X 3, compliant with medication but does not attend group, could be a distractor instead of being involved when found in group therapies/ activities. Patient isolates a lot in her room mostly on bed rest, was transported for a chest X-ray due to complaints of productive cough. vital sign is stable and WNL, denies thought of slef-harm and to someone else.
[2016-05-04 19:50] VITALS: BP 113/67
--- NOTE | 2016-05-04 21:44 | NUR ---
PT HAS BEEN ISOLATIVE AND WITHDRAWN, REMAINING IN BED FOR MAJORITY OF EVENING. REFUSED WRAP UP MEETING. COOPERATIVE AND COMPLIANT WITH STAFF. NO COMPLAINT OR SI REPORTED. PT HAS A STABLE MOOD AND FULL RANGE AFFECT.
[2016-05-05 08:05] VITALS: BP 139/69
[2016-05-05 12:21] VITALS: BP 119/86
--- NOTE | 2016-05-05 14:17 | CP SOUTH PROGRESS NOTE PSYCH ---
Psych (Inpt) Progress Note Progress Note Include the following elements, when applicable: Involvement in the active treatment of the patient with behavioral observations of the patient and the patient's response to the treatment. Review of the ongoing treatment process in the context of the treatment plan. Indication of how multi-disciplinary staff members are carrying out the treatment plan. Plans for future interventions and recommendations for revision of the treatment plan. Liaison with other physicians/providers. Progress Note: Chart reviewed, patient progress discussed with nursing staff. Interviewed patient this morning. Patient was found sleeping in the bathroom. When I asked Desiree what was going on, she says that "I've been out partying for the last 5 days so I'm tired." She does not feel as though she is oversedated by her medications, and in fact says that her methadone dose was recently reduced from 170 mg daily to 140 mg daily. Desiree described her struggle with stating from cocaine. Says that her mood remains depressed, she feels hopeless that she will be unable to stay off cocaine. Says that the only time she remembers doing well in the recent past is when she was prescribed Vyvanse through an [employer] SAL[employer] CONSULTANT at her methadone clinic in [place]. She denies any current perceptual disturbances or suicidal or homicidal ideation. She asked if her Lexapro can be changed. Vitals reviewed and were within normal limits. No new laboratory results today. Mental status exam: Disheveled female, appears older than stated age. Multiple tattoos on arms. Cooperative with interview with minimal eye contact. She was not sedated. Speech was within normal limits. Mood was "really down", affect was constricted, non-labile, congruent. Thought process was logical and linear. Content was within normal limits. Denies SI or HI. Denies perceptual disturbances. Cognition was grossly intact. Insight and judgment were limited to fair. A/P: Continues to evidence fatigue and mood disturbance in the context of significant substance abuse. Will defer any medication changes to primary team. Might consider the use of modafinil given her described successful period on Vyvanse in the past. Continue present management for now.
--- NOTE | 2016-05-05 18:05 | NUR ---
Patient is A&O X 3, compliant with medication but does not attend group therapies/ activities. Patient report good night sleep and appetite, continue to demonstrates some needy behavior by scavenging for every usuable items to to home after discharge. mood is stable with appropriate affects, denies thought of self-harm and to someone else.
[2016-05-05 19:53] VITALS: BP 135/81
--- NOTE | 2016-05-05 21:30 | NUR ---
PT IS CALM, COOPERATIVE WITH STAFF AND PEERS, AND COMPLIANT WITH UNIT RULES. PT IS OFTEN OUT OF MILIEU, IN PT ROOM, SLEEPING FOR MOST OF THE EVENING. MOOD IS STABLE, AFFECT IS FULL RANGE, COMMUNICATION IS ORGANIZED AND IS NORMAL IN EVERY OTHER RESPECT, AND APPETITE IS NORMAL. PT DENIES SI AT THIS TIME.
[2016-05-06 07:40] VITALS: BP 133/77
[2016-05-06 08:40] LABS: ABSOLUTE BASOPHIL COUNT 0.1 /CUMM (0.0-0.2); ABSOLUTE EOSINOPHIL COUNT 0.2 /CUMM (0.0-0.7); ABSOLUTE GRANULOCYTE CT 2.7 /CUMM (1.4-6.5); ABSOLUTE LYMPH COUNT 2.7 /CUMM (1.2-3.4); ABSOLUTE MONOCYTE COUNT 0.5 /CUMM (0.10-0.60); EOSINOPHIL % 3.6 % (0-5); HEMATOCRIT 37.8 % (37-47); MEAN CORPUSCULAR HGB 26.8 PG (27.0-31.0); MEAN CORPUSCULAR VOLUME 83.7 FL (81.0-99.0); MEAN PLATELET VOLUME 7.6 FL (7.4-10.4); PLATELET COUNT 267 /CUMM (130-400); RBC DISTRIBUTION WIDTH 15.2 % (11.5-14.5); RED BLOOD CELL CT 4.52 /CUMM (4.20-5.40)
[2016-05-06 10:31] LABS: WHITE BLOOD CELL COUNT 6.1 /CUMM (4.8-10.8)
[2016-05-06 12:24] VITALS: BP 135/80
--- NOTE | 2016-05-06 13:07 | NUR ---
PT NOT VISIBLE MUCH IN THE MILIEU TODAY. SHE CAME TO PLANNING MEETING TODAY, BUT LEFT EARLY MAKING NO GOAL FOR HERSELF. PT HAS BEEN IN HER ROOM A LOT RESTING, COMPLAINING OF A HEADACHE. PT DID COME OUT FOR MEALS, BUT DID NOT EAT HER LUNCH BECAUSE SHE DID NOT GET HER APPLE PIE WITH HER LUNCH. PT DENIES HAVING THOUGHTS TO HURT HERSELF WHEN ASKED.
--- NOTE | 2016-05-06 13:55 | SOCIAL WORKER PROG NOTE PSYCH ---
Social Work Progress Note Progress Note SW met with patient for the first time since re-admission to the hospital. Patient found sleeping in her room around 1PM this afternoon. Patient complaining of migraine. While patient was in ED, social worker assistant, started process for patient to go to sober home in [place], [place] but patient reports that she does not have funds for this program. Patient reports that she does not wish to go to this program and is currently on the waiting list at [facility] and [facility]. Patient reports that if neither of these plans work out she has a friend she is able to stay with him and states that he/she is sober. Patient presented irritable, guarded, with depressed mood and affect. Patient reports passive SI, reporting feeling overwhelmed and hopeless over current situation. Patient is able to contract for safety while in the hospital but reports not feeling ready to discharge today.
--- NOTE | 2016-05-06 14:14 | CP SOUTH PROGRESS NOTE PSYCH ---
Psych (Inpt) Progress Note Progress Note Include the following elements, when applicable: Involvement in the active treatment of the patient with behavioral observations of the patient and the patient's response to the treatment. Review of the ongoing treatment process in the context of the treatment plan. Indication of how multi-disciplinary staff members are carrying out the treatment plan. Plans for future interventions and recommendations for revision of the treatment plan. Liaison with other physicians/providers. Progress Note: PSYCHIATRIST NOTE (05/06/2016): I assumed the care of this patient this morning and discussed her presentation on 05/03/2016 and progress since then with staff this morning in the [facility]; I also read the E.D. consultation note by Dr. Pham, initial M.D. assessment and progress note by Dr. Doyle and the progress note of this date by Maribell Baltazar LCSW. I do not agree with the suggestion that a stimulant drug might be added to patient's regimen (even modafinil) to improve clinical picture ; review of previous urine toxicology screens revealed that several times during previous E.D./inpatient presentations her amphetamine level was positive and in toxic range; her long and discouraging history of polydrug abuse/dependence is also a relevant consideration. In the main, patient's c/o of lack of alertness has related to drug abuse and/or prescription of very high dose methadone maintenance. During my individual interview with patient this afternoon she made a concerted and persistent effort (?where did she get the energy) to make a case for being prescribed Vyvanse or Provigil but was willing to begin while in short -term hospital to first try adding Wellbutrin to her daily dose of Lexapro, 20mg /day; I went 4 years back in our inpatient records (there have been several admissions to [facility] during that interval) and could find no documentation of patient ever having been discharged from here on BOTH Wellbutrin and an SSRI though went home on one or the other at various times; after once again going over R/B/SE of Wellbutrin patient agreed to restart 100mg of SR formulation, beginning in AM 05/07/2016. Patient also had claimed to have lost weight on Vyvanse in the past and was developing a more positive body image and feeling she could control her appetite; she also described a similar effectiveness ( though to a lesser degree) of Topamax; patient also suffers persistent recurrent migraine which she claims is not responsive to Imitrex type drugs (though she "does very well" on Fioricets); after further discussion of R/B/SE of Topamax ( including possible decrease in mental acuity or "feelings of fogginess" of thinking) patient agreed to restart Topamax, beginning HS tonight at 25mg 2x/ day. Patient told me she has been on the waiting list for [facility] for several weeks and thought that some contact with them on our part might help to move her up on the waiting list for admission; she is also on the waiting list for [facility] ([facility] residential substance abuse program; she last telephoned them on the day she came into the E.D. last week and told me "they said I should call once a week;" patient told me that she will call them again tomorrow, 2016.
--- NOTE | 2016-05-06 14:55 | SOCIAL WORKER TX PLAN PSYCH ---
Treatment Plan - Please Document: - Evidence that there is ongoing collaboration between - the patient and the interdisciplinary team, - including the patient's active participation and - responsibility for engaging in the treatment regimen, - and that the treatment plan is individualized and - relevant to the patient's conditions. - Treatment plan should reflect documentation indicating - that all active therapeutic efforts are included. Strengths/Capabilities: The patient has insight into her need for treatment and is motivated to attend. Physical Limitations (Interventions): None identified Patient Identified Trmt Goals: " I need more treatment" Discharge Plan: Rehab/ sober house Problem/Goals #1 Problem #1: suicidal ideation Goal (Short Term): Today I will attend 2 groups Today I will identify 2 stressors Today I will identify 2 positive supports Today I will work on recognizing 3 emotions I am feeling Goal (Rn Corrections): Be free of suicidal thoughts/attempts Develop 3 coping skills to deal with depression Identify 3 positive support systems to call in crisis Develop a crisis plan with 3 kasper people Identify 2 positive traits per week about myself Identify 2 things I have to look forward to Identify 2 positive people in my life and 1 thing I appreciate about them Interventions: Learn ways to manage depressive symptoms accordingly and identify positive supports to manage life stressors and mood fluctuations. Modalities: Encourage groups, education on depression, provide CBT treatment, family meeting. Problem/Goals #2 Problem #2: polysubstance abuse Goal (Short Term): 1) Refrain from substance use 2) Identify 3 triggers for use 3) Identify 3 sober supports 4) Identify 3 coping skills Goal (Retirement): I will have family meeting on unit during my hospitalization I will attend all AA groups on unit I will Identify 3 coping skills for cravings to use I will set up aftercare for dual diagnosis program to address both mental health and substance abuse concerns Interventions: Learn ways to manage cravings to use substances accordingly and identify coping skills to prevent relapse from occurring due to anxious/depressed feelings. Modalities: Encourage groups, education on addiction, provide CBT treatment, family meeting. DSM5/PS Stressors/Medical Prob Diagnosis' (DSM 5, Stressors, Medical): F31.9 Unspecified Bipolar Disorder, F14.20 Stimulant use disorder- Cocaine type and F13.20 Sedative, Hypnotic, or anxiolytic use disorder. Current GAF: 30 Treatment Team - Responsibilities of members of the treatment team include: - Medication Management- MD or LDR RN - Medication Administration and Monitoring- Nurse - Group Therapy- Occupational Therapist - 1:1 Therapy,Disch Planning,family involvement-Milling/Polishing Operator
[2016-05-06 16:20] VITALS: BP 129/62
[2016-05-06 20:25] VITALS: BP 116/51
--- NOTE | 2016-05-06 21:39 | NUR ---
PT IS AT TIME AGGITATED AND VERBALLY AGGRESSIVE WITH STAFF. YELLING AT STAFF EARLIER IN THE EVENING OVER AN ISSUE WITH MEDICATIONS. PT WAS CALMED DOWN AND ISSUE WAS RESOLVED AFTER A FEW MINUTES. MOOD IS UNSTABLE, AFFECT IS FULL RANGE, BUT HAS PROPENSITY OT BECOME LABILE AND TEARFUL, PT IS LETHARGIC SLEEPING THE MAJORITY OF THE SHIFT, WITHDRAWN/ISOLATIVE - SPENDING THE MAJOIRTY OF TIME IN PT ROOM, COMMUNICATION IS ORGANIZED AND NORMAL IN ALL RESPECTS, AND APPETITE IS NORMAL. PT MADE AN SI COMMENT DURING 1600 VITALS, PROVIDED A PLAN FOR OFF THE UNIT. PT CLAIMS THAT SHE WOULD NOT ATTEMPT ANYTHING ON THE UNIT, AND AFTER THE COMMENT WAS MADE THE CHARGE NURSE WAS SUBSEQUENTLY NOTIFIED.
--- NOTE | 2016-05-07 04:39 | NUR ---
Up x 1 for neurontin 0430, reports of anxiety and poor sleep. Slept well until that report, snoring most the night.
[2016-05-07 07:26] VITALS: BP 113/72
--- NOTE | 2016-05-07 10:46 | SOCIAL WORKER PROG NOTE PSYCH ---
Social Work Progress Note Progress Note Social Work met with pt individually. Pt expressed that she continues to feel depressed and hopeless. She she expresses suicidal thoughts and thinks about jumping in front of a train. "I feel like I'm just existing. My life is meaningless. I keep going no where and I'm so tired and depressed. I'm not ready to be discharged. I would just jump in front of a train." Pt expresses her frustration with herself because she will progress and do well and then sabotage her progress and return to inpt psych tx. "I don't know why I keep doing this. I do well and I am functional. I write things down. I get up in the morning and shower and cook. I'm not doing any of this. I'm so depressed that I can't even shower." Pt was encouraged to reflect on this and try to identify what leads to her success and what triggers her failure. Pt expresses that she thinks that she needs further medications stabilization and plans to discuss this with Dr. Calderon. Discussed dispo planning. Pt informed that she is number 12 on the waiting list at [facility] and requested that her records be faxed. Pt signed a release and records were faxed as she requested.
[2016-05-07 11:29] VITALS: BP 122/62
--- NOTE | 2016-05-07 14:26 | NUR ---
went to planning group and has been isolative in room since that time. mood is stable, full range of affect. denies toughts of self harm when asked. ther has been no outbursts related to meals or meds this morning.
[2016-05-07 16:08] VITALS: BP 133/78
--- NOTE | 2016-05-07 17:20 | CP SOUTH PROGRESS NOTE PSYCH ---
Psych (Inpt) Progress Note Progress Note Include the following elements, when applicable: Involvement in the active treatment of the patient with behavioral observations of the patient and the patient's response to the treatment. Review of the ongoing treatment process in the context of the treatment plan. Indication of how multi-disciplinary staff members are carrying out the treatment plan. Plans for future interventions and recommendations for revision of the treatment plan. Liaison with other physicians/providers. Progress Note: PSYCHIATRIST NOTE (05/07/2016): I discussed this patient's progress to date today with staff team in the daily morning ITTM. She continued to express suicidal ideation and intent (if discharged from hospital) and reiterated this during her meeting with Maria Dolores Li LCSW (covering for Shanna Baltazar LCSW, today). In further review of patient's chart today to see if there is more we can do to help her with chronic mood disorder I noted that in every single one of the 14 urine tox. screens obtained on patient here at [facility] over just the past 3 years, she was heavily intoxicated with cocaine in EVERY instance; her abuse of this drug in particular is contributing very significantly to her poor outcomes in recent years despite all efforts to treat her as an inpatient and in the [facility]. At this point, her best option might likely be to remain on the waiting list for the [facility] while attending the [facility] residential substance abuse program and then go directly to the former from the latter. During individual interview with patient today she confirmed ongoing suicidal ideation but did allow that her migraine headaches were "better today; " she had been taking 3 doses a day rather regularly. Patient c/o fatigue during the day today but denied any side effects from initial dose of Wellbutrin SR, 100mg, this AM; however, she would not permit me to increase current dose tomorrow by more than 50mg, as she is concerned that too rapid an upward titration might increase her anxiety level which continues to be fairly high already (though such is hardly evident during individual interview with her). Patient agreed to increase Topamax but since she is complaining of daytime sedation we agreed to discontinue the AM dose while titrating the HS dose upwards to a target dose of 100mg HS tomorrow, 05/08/2016; patient claims that in the past she has received benefit from "the maximum dose of Topamax," though she does not recall what that dose actually was at that time. Patient had material Fax'd to the [facility] residential program today; I remain concerned that if patient does not go seamlessly to [facility] she will be at high risk of relapsing on crack cocaine with possibly dangerous consequences even if she is not overtly "suicidal."
[2016-05-07 19:52] VITALS: BP 141/88
--- NOTE | 2016-05-07 20:28 | NUR ---
Pt is out in the lounge mood is stable. Less isolative vital signs are stable c/o no pain. Appetite is good. Will contniue to monitor the pt overnight.
[2016-05-08 07:43] VITALS: BP 131/72
--- NOTE | 2016-05-08 11:27 | SOCIAL WORKER PROG NOTE PSYCH ---
Social Work Progress Note Progress Note Patient continues to report passive SI today with no specific plan or intent to hurt herself while in the hospital. Patient denies HI/AH/VH at present. Patient plans to call [facility] and [facility] today to check bed status since on waiting list at both places. Patient seen sleeping most of the AM, irritable at times, engaging little in groups or with peers/staff. Patient encouraged to try to refrain from this type of behavior and be more active in her treatment. I will discuss other rehab options with patient today, possibly [facility].
[2016-05-08 12:43] VITALS: BP 131/74
--- NOTE | 2016-05-08 12:52 | NUR ---
Presents with a constricted affect and stable mood. Patient slept most of the morning but she is social and interacts appropriately with peers when out on the unit. Denies SI/HI/AVH at this time. Compliant with scheduled meds. C/O of migraine,Fioricet and Motrin given as ordered with pending effect. Maintained on q15 minutes checks for safety and observation, will continue to monitor and offer support as needed.
[2016-05-08 16:25] VITALS: BP 111/75
--- NOTE | 2016-05-08 18:41 | CP SOUTH PROGRESS NOTE PSYCH ---
Psych (Inpt) Progress Note Progress Note Include the following elements, when applicable: Involvement in the active treatment of the patient with behavioral observations of the patient and the patient's response to the treatment. Review of the ongoing treatment process in the context of the treatment plan. Indication of how multi-disciplinary staff members are carrying out the treatment plan. Plans for future interventions and recommendations for revision of the treatment plan. Liaison with other physicians/providers. Progress Note: PSYCHIATRIST NOTE (05/08/2016): I discussed this patient's progress to date, current mental status and discharge planning with staff team in the daily morning ITTM and met with her again myself in individual session. Patient is continuing to experience headaches with some improvement, tolerating upward titration of Topamax well and willing to increase dose tonight from 75mg to 100mg HS. She is tolerating the reintroduction of Wellbutrin and understands that it will likely take 2-6 weeks to ascertain extent of additional benefit to this augmentation of SSRI. Patient complaining of continuing lethargy, inactivity but does not wish to further reduce current methadone dose at this time since it was decreased from 175mg to 140mg/day shortly [employer]IST[employer] and is likely rust in this decision, though she continues to be motivated to gradually taper away and discontinue methadone; I have counselled her that this process may likely take at least several months to be effectively accomplished without severe withdrawal symptomatology. Patient has been maintaining liaison with [facility] residential rehab program and [facility] and is willing to go to a place like the [facility] in [place] in the meantime but pointed out that the latter program does not accept patients who are current on methadone; we will be checking out where she can go given this fact.
[2016-05-08 19:29] VITALS: BP 109/75
--- NOTE | 2016-05-08 21:10 | NUR ---
PT IS VISIBLE ON UNIT, WATCHING TV AND INTERACTING WITH [employer]. IT HAS BEEN REPORTED FROM OTHER PATIENTS THAT THIS PATIENT HAS BEEN MONOPOLIZING THE TV AND PHONE. PT CAN BE VERY MED SEEKING AND CHALLENGING WITH STAFF WHEN REDIRECTED. WHILE ANOTHER PATIENT WAS HAVING A OUTBURST, THIS PATIENT WAS SEEN ENCOURAGING THE OTHER TO ESCALATE SITUATION. PT REFUSED WRAP UP AND RETREATED TO ROOM INSTEAD. PT HAS AN ANGRY MOOD AND IRRITABLE AFFECT.
--- NOTE | 2016-05-09 07:02 | NUR ---
PT ASLEEP BY 2230. PT APPEARED TO SLEEP WELL. PT UP PROMPTLY AT 0600 FOR METHADONE 140 MG, THEN COMPLAINED OF MIGRAINE AND THROAT PAIN, FOR WHICH SHE RECEIVED FIORICET AND MOTRIN.
[2016-05-09 07:55] VITALS: BP 121/63
[2016-05-09 12:31] VITALS: BP 119/63
--- NOTE | 2016-05-09 12:50 | NUR ---
PT NOT VISIBLE MUCH IN THE MILIEU TODAY. 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 IN PLANNING MEETING PT SHARED THAT SHE IS TIRED ALL THE TIME, AND HAS NO MOTIVATION ANYMORE. SHE CAME TO PLANNING MEETING, BUT HAS NOT BEEN IN ANY OTHER GROUPS TODAY. WHEN IN THE MILIEU PT HAS POSITIVE INTERACTIONS WITH HER PEERS, AND HAS BEEN COOPERATIVE WITH STAFF DIRECTION. PT DENIES HAVING THOUGHTS OF HURTING HERSELF WHEN ASKED IN MORNING VITALS.
--- NOTE | 2016-05-09 13:44 | NUR ---
PT IS AGITATED THAT HER PRN MIGRAINE MEDICATION IS NOT UP FROM PHARMACY. PT CONSTANTLY ASKING FOR MEDICATION AND ASKING STAFF TO GO GET HER MED FROM PHARMACY. WILL CONTINUE TO MONITOR.
--- NOTE | 2016-05-09 15:43 | SOCIAL WORKER PROG NOTE PSYCH ---
Social Work Progress Note Progress Note Met with patient with Dr. Calderon today. This tech writer had to wake patient up to meet but patient was alert during meeting and able to participate freely. Patient reported that she is feeling overly sedated and has been sleeping most of the day/night. Patient reports that she is on waiting list for both [facility] and [facility] and is still unsure when bed will become available at either facilities. Together, Dr. Calderon, and I encouraged patient to think of other options since there will most likely will be a long wait at both facilities. Patient identified [facility], [facility], [facility] and [facility]. Patient is open to all facilities and willing to go to whichever has bed available first. Referral has now been sent to both [facility] and [facility]. I will start process for [facility] and am waiting for call back from [facility] with their fax #.
[2016-05-09 16:00] VITALS: BP 126/51
[2016-05-09 19:41] VITALS: BP 123/84
--- NOTE | 2016-05-09 19:49 | CP SOUTH PROGRESS NOTE PSYCH ---
Psych (Inpt) Progress Note Progress Note Include the following elements, when applicable: Involvement in the active treatment of the patient with behavioral observations of the patient and the patient's response to the treatment. Review of the ongoing treatment process in the context of the treatment plan. Indication of how multi-disciplinary staff members are carrying out the treatment plan. Plans for future interventions and recommendations for revision of the treatment plan. Liaison with other physicians/providers. Progress Note: PSYCHIATRIST NOTE (05/09/2016): I discussed this patient's progress to date, current mental status, discharge/disposition planning with staff team in this morning's daily ITTM, and Maribell Baltazar LCSW, and I met with her together in individual session this afternoon, partly in effort to attempt facilitation her disposition to a structured sober residence where she can await placement at [facility], [facility] or another venue for more intense treatment; she came up with several possibilities , residential programs which would accept someone who is in methadone maintenance. Though her mood is slowly improving, patient continues to complain of sleepiness/lack of energy during the day; she is tolerating low dose Wellbutrin SR, 150mg daily well to date and after again reviewing R/B/SE of higher dose Wellbutrin, agreed to titrate dose up to 300mg of XL tomorrow AM. Patient continues to utilize the PRN Fioricet to the upper limit of 3 doses a day but said that headaches are now "not as bad."
--- NOTE | 2016-05-09 21:40 | NUR ---
PT IS VISIBLE ON UNIT, WATCHING TV AND MOSTLY STAYING TO HERSELF. PT GREW LOUD AND VULGAR ON PHONE AT ONE POINT AND NEEDED REDIRECTION. REFUSED WRAP UP MEETING EVEN THOUGH SHE WAS SITTING IN LOUNGE. VERY MED SEEKING. ARGUMENTATIVE WITH STAFF AT TIMES. NO SI REPORTED. PT HAS AN IRRITABLE MOOD AND AFFECT.
--- NOTE | 2016-05-10 06:07 | NUR ---
PT WENT TO BED EARLY. PT APPEARED TO SLEEP. PT UP AT 0530.
[2016-05-10 07:46] VITALS: BP 117/64
--- NOTE | 2016-05-10 14:02 | NUR ---
Pt approached nursing station in a haste and leaning over the counter immediately demanding PRN medication to which this RN ackowledged and informed the pt that an admission came and I'm currently in the middle of something and please give me one second. Pt continued to raise voice and become hyperverbal and repeated self-reporting that a PRN is needed for a migraine and perseverating profusely re: this, to which she was addressed again to please be patient and around this point the pt became increasingly verbally agressive/abusive, hostile, demanding and stating that this RN disregarded and ignored her presence all of which is completely untrue. Attempted to de-escalate and redirect the pt several times due to her agitation, false claims, continuing to remain in the lounge and yelling derogatory statements at staff and then reported would be contacting the pt advocate. About 5 minutes later the patient calmed and was less labile and PRN medication was given and pt apologized for abrupt/impulsive and poor behavioral choices to which it was accepted and this RN provided more feedback on how to handle similar situations again and to be more active on the unit and attend groups, verbalized understanding.
--- NOTE | 2016-05-10 14:19 | SOCIAL WORKER PROG NOTE PSYCH ---
Social Work Progress Note Progress Note SW met with patient this afternoon who was found sleeping in bed. Patient continues to report having a headache and believes she is still coming down from recent drug run. Patient reports calling multiple rehabs this AM and they reported they need review the clinical that was sent over before they can complete screening. I emphasized and asked if there is anything else they need from me in order to move the process, patient reported there is not. All clinical has been faxed to [facility], [facility], [facility], and [place]. Patient denies SI/HI/AH/VH at present but reports being unable to contract for safety if to be discharged from the hospital.
[2016-05-10 17:52] VITALS: BP 96/61
--- NOTE | 2016-05-10 17:52 | CP SOUTH PROGRESS NOTE PSYCH ---
Psych (Inpt) Progress Note Progress Note Include the following elements, when applicable: Involvement in the active treatment of the patient with behavioral observations of the patient and the patient's response to the treatment. Review of the ongoing treatment process in the context of the treatment plan. Indication of how multi-disciplinary staff members are carrying out the treatment plan. Plans for future interventions and recommendations for revision of the treatment plan. Liaison with other physicians/providers. Progress Note: PSYCHIATRIST NOTE (05/10/2016): I discussed this patient's progress to date, current mental status, treatment plan, discharge/disposition planning with staff team in the daily morning ITTM. Patient continues to work actively on her f/u treatment plan for structured residential rehab which is quite appropriate given the tremendous difficulty she has had up until the present controlling her substance abuse on an outpatient basis; she is seeking a shorter term program or sufficiently supported and structured sober house while remaining on the list for [facility] and [facility]. Patient now demonstrates a brightening affect, is more hopeful and positive re the future (though still afraid of her destructive impulses in the outside community without sufficient supports), sleeping somewhat better (though awakening early) though still fatigued and napping during the daytime hours; we have repeatedly encouraged her to a greater participation in the patient program and milieu and will work on this during the coming weekend; hopefully, we will have an appropriate, sufficiently structured and supportive aftercare program/ residence for her by early in the week.
[2016-05-10 19:58] VITALS: BP 112/69
--- NOTE | 2016-05-10 22:03 | NUR ---
Pt is out in the lounge waiting for her meds, pt always talks about her medication, Vital signs are stable c/o of poor sleep. Appetite is good. Will monitor the pt overnight.
[2016-05-11 07:33] VITALS: BP 130/54
[2016-05-11 12:08] VITALS: BP 106/57
--- NOTE | 2016-05-11 12:50 | NUR ---
PT VISIBLE IN THE MILIEU TODAY. HER GOAL WAS TO ADJUST TO NEW MEDICATIONS. PT HAS BEEN IN HER ROOM LAYING DOWN MOST OF THE DAY. SHE DID NOT ATTEND FOCUS GROUP, BUT HAS BEEN COMING OUT FOR MEALS. PT DENIES THOUGHTS TO HURT HERSELF WHEN ASKED.
[2016-05-11 15:46] VITALS: BP 118/55
--- NOTE | 2016-05-11 18:06 | NUR ---
PT SPENT MAJORITY OF THE EVENING IN HER ROOM. SHE DID NOT COME OUT TO EAT COMPLAINING OF A STOMACHACHE. SHE WAS COOPERATIVE WITH STAFF, COMPLETING HER VITALS. PT DENIES HAVING THOUGHTS TO HURT HERSELF WHEN ASKED.
[2016-05-11 19:05] VITALS: BP 145/73
--- NOTE | 2016-05-11 19:46 | CP SOUTH PROGRESS NOTE PSYCH ---
Psych (Inpt) Progress Note Progress Note I reviewed patients electronic health record, I read Dr. Jenkins note I listened to verbal report by Nurse Salima I interviewed the patient Bibiana reported ongoing anxiety, Seemed pleasant, a bit talkative but not pressured Her affect was bright She denied feeling hopeless , denied wishing or thinking of suicide She is not sure about whats next after the inpatient unit, it may be residential rehab No delusions observed, she denied hallucinations and she was coherent I discussed options for anxiety, we agreed on: Increasing Gabapentin to 600 mg TID Re-evaluate tomorrow
--- NOTE | 2016-05-12 06:06 | NUR ---
PT APPEARED TO SLEEP WELL. PT UP PROMPTLY AT 0550, SEEKING METHADONE.
[2016-05-12 07:43] VITALS: BP 114/59
--- NOTE | 2016-05-12 11:38 | NUR ---
PATIENT HEARD YELLING PROFANITIES IN HER ROOM AT END OF [facility]. WHEN ASKED WHAT CAUSED OUTBURST SHE REPLIED THAT HER MEDS ARE ALL MESSED UP. SHE BELIEVES SHE NEEDS TO BE ON A STIMULANT MEDICATION AND HAD CONVINCED ONCALL PSYCHIATRIST TO ORDER IT FOR HER. WHEN PSYCHIATRIST WAS MADE AWARE OF TREATING PSYCHIATRISTS (Dr YOU) NOTE FROM 05/06/16 INDICATING REASONS WHY PATIENT SHOULD NOT BE ON A STIMULANT MEDICATION IT WAS DISCONTINUED. WHEN TOLD MEDICATION HAD BEEN DISCONTINUED SHE GOT UPSET WHICH CAUSED HER YELLING. WAS ABLE TO CALM DOWN AND REGAIN CONTROL STATING THAT SHE WANTS TO BE DISCHARGED TOMORROW SO SHE CAN MEDICATE HERSELF. GANESH HAD BEEN APPROACHING NURSING STAFF ALL MORNING PERSEVERATING ON HER MEDICATIONS REFUSING TO CONSIDER ALTERNATIVES AND RAMBLINGON TRYING TO JUSTIFY HER PERSPECTIVE ON WHY SHE NEEDS STINULANTS AND STRONGER PAIN MEDS. DENIED THOUGHTS OD SI WHEN ASKED.
[2016-05-12 12:15] VITALS: BP 135/91
[2016-05-12 15:48] VITALS: BP 113/67
--- NOTE | 2016-05-12 17:17 | CP SOUTH PROGRESS NOTE PSYCH ---
Psych (Inpt) Progress Note Progress Note Bibiana reported that she is still having ongoing anxiety, Seemed pleasant, talkative but not pressured, her affect was bright She denied feeling hopeless , denied wishing or thinking of suicide No delusions observed, she denied hallucinations and she was coherent She said Dr. Calderon was going to think about Provigil but did not order it. Later on I found out that he intentially did not order it, my provigil order was cancelled and she was not happy about that I discussed options for anxiety, we agreed on: Increasing Gabapentin to 900 mg TID
[2016-05-12 20:09] VITALS: BP 121/78
--- NOTE | 2016-05-12 23:39 | NUR ---
PT HAS BEEN UPSET ALL DAY THAT A STIMULANT WAS NOT ORDERED FOR HER. SHE HAS BEEN BAD MOUTHING TREATMENTS AND TREATORS THRU THE EVENING. THE PT IS UPSET AT NEEDING REDIRECTION. PT IS -SI.
--- NOTE | 2016-05-13 06:10 | NUR ---
PT APPEARED TO SLEEP WELL.
[2016-05-13 08:26] VITALS: BP 129/76
--- NOTE | 2016-05-13 10:26 | CP SOUTH PROGRESS NOTE PSYCH ---
Psych (Inpt) Progress Note Progress Note Include the following elements, when applicable: Involvement in the active treatment of the patient with behavioral observations of the patient and the patient's response to the treatment. Review of the ongoing treatment process in the context of the treatment plan. Indication of how multi-disciplinary staff members are carrying out the treatment plan. Plans for future interventions and recommendations for revision of the treatment plan. Liaison with other physicians/providers. Progress Note: [I discussed this patient's progress to date, current mental status, treatment process in the context of the treatment plan, and discharge planning with staff/ team in the daily morning inpatient team meeting. I also met with the patient myself in individual session.] SUBJECTIVE: "Let me guess, you're not gonna give me the Provigil?" OBJECTIVE: Current Medications Sig/Amanuel Start time Last Medication Dose Route Stop Time Status Admin Acetaminophen/ 1 TAB Q6P PRN 05/12 1130 AC 05/13 Butalbital/Caffeine PO 0705 Acetaminophen/ 1 TAB Q4H PRN 05/10 1815 DC 05/12 Butalbital/Caffeine PO 0626 Al Hydroxide/Mg 30 ML Q4-6 PRN PRN 05/03 1830 AC 05/11 Hydroxide PO 0823 Benzocaine/Menthol 1 KIKA Q2P PRN 05/03 2230 AC 05/04 PO 0648 Bupropion HCl 300 MG 05/10 0800 AC 05/13 PO 0839 Escitalopram Oxalate 20 MG 0800 05/08 0800 AC 05/13 PO 0839 Gabapentin 900 MG Q8P PRN 05/13 1400 UNVr PO Gabapentin 900 MG TID 05/12 1000 DC 05/13 PO 0839 Ibuprofen 600 MG Q6P PRN 05/03 1830 AC 05/13 PO 0931 Magnesium Hydroxide 30 ML AT BEDTIME PRN 05/03 1830 AC 05/11 PO 0644 Melatonin 5 MG AT BEDTIME 05/07 2200 AC 05/12 PO 2123 Methadone HCl 140 MG DAILY AC 05/06 0700 DC 05/13 PO 0704 Modafinil 100 MG DAILY 05/12 1000 DC PO Multivitamins 1 TAB DAILY 05/03 1819 AC 05/13 PO 0839 Quetiapine Fumarate 25 MG AT BEDTIME NEED.. 05/08 0515 AC 05/12 PO 220 Topiramate 100 MG 05/08 2200 AC 05/12 PO 2123 Vital Signs Date Time Temp Pulse Resp B/P Pulse O2 O2 Flow FiO2 Ox Delivery Rate 05/13 0826 96.9 75 129/76 05/12 2008 98.2 78 121/78 05/12 1548 81 113/67 05/12 1215 80 135/91 ASSESSMENT: Chart, progress notes, VS, labs and medication list were reviewed. VS remain stable. There were no new lab results today. Reviewed patient's treatment progress to date with nursing. Per nursing report, the patient remains medication seeking and irritable in the milieu. She attends milieu groups minimally, and spends most of the day sleeping in room. Met with patient today at 10:05AM. Interviewed patient for 25 minutes. She presented alert and oriented to person, place, and time. Speech was normal in rate, tone and volume. Affect was full-range. Mood was moderately frustrated and irritable secondary to unit rules and medication regimen. She was largely perseverative on Provigil and Vyvanse and persistently requested she be started on these. Reviewed with the patient that both medications would not be started while inpatient given a history of PSA and the risks that these medications pose towards relapse. Patient reported depression of 8/10 (10 being the worst) and anxiety of 8/10 (10 being the worst). She reported that if she were discharged today she would purchase benzodiazepines on the street and overdose in a suicide attempt. She denied homicidal ideation. She denied auditory and visual hallucinations. Thought process was linear. Thought content was depressed and perseverative on medications. Cognition was grossly intact. Patient reported feeling sedated from recent increase of Gabapentin from 600mg TID to 900mg TID (for anxiety over the weekend). She reported that 600mg TID was not enough, but that 900mg was too much. Patient was agreeable to having Gabapentin 900mg TID changed to TID prn for anxiety. Patient denied untoward medication effects from all other psychotropic medications. PLAN: 1. Continue monitoring the patient on unit for safety, mood and suicidal ideation. 2. Encourage participation in milieu groups. 3. Continue current medications. 4. Change Gabapentin from 900mg TID to TID prn for anxiety. 5. Consider increasing Wellbutrin for depression. 6. Dispo planning per primary team.
--- NOTE | 2016-05-13 11:48 | SOCIAL WORKER PROG NOTE PSYCH ---
Social Work Progress Note Progress Note Patient continues to perserverate on wanting med changes and not feeling any improvements since admission. Patient continues to endorse SI stating that she does not feel safe discharging the hospital without secure plan. Patient made phone calls this AM to enquire about bed availability at rehabs. This com writer followed up as well this AM and confirmed that [facility] in [place] will not be accepting patient due to believing she needs a higher level of care such as [facility]. Admissions at [facility] is full so this com writer is unable to leave message. Voicemail was left at [facility] location as well to schedule phone screening. Patient continues to participate minimally in treatment, sleeps most of the day and is demanding of staff at times.
[2016-05-13 12:20] VITALS: BP 117/68
--- NOTE | 2016-05-13 14:13 | NUR ---
PT IS COMPLIANT AND COOPERATIVE. MOOD IS STABLE WITH A FULL RANGE OF AFFECT. PT DENIES SI AT THIS TIME, C/O HEADACHE. PT APPEARS SEDATED- HAS BEEN SLEEPING IN BED MUCH OF DAY. PT PRESENT ON UNIT FOR MEALS AND VITALS. PT HAS ATTENDED ONE GROUP. VITALS ARE STABLE, APPETITE IS GOOD.
--- NOTE | 2016-05-13 15:57 | SOCIAL WORKER PROG TO GOALS ---
Progress Toward Goals Strengths/Capabilities: The patient has insight into her need for treatment and is motivated to attend. Physical Limitations (Interventions): None identified Patient Identified Trmt Goals: " I need more treatment" Discharge Plan: Rehab/ sober house Problem/Goals #1 Problem #1: suicidal ideation Goal (Short Term): Today I will attend 2 groups Today I will identify 2 stressors Today I will identify 2 positive supports Today I will work on recognizing 3 emotions I am feeling Goal (Group Home): Be free of suicidal thoughts/attempts Develop 3 coping skills to deal with depression Identify 3 positive support systems to call in crisis Develop a crisis plan with 3 kasper people Identify 2 positive traits per week about myself Identify 2 things I have to look forward to Identify 2 positive people in my life and 1 thing I appreciate about them Interventions: Learn ways to manage depressive symptoms accordingly and identify positive supports to manage life stressors and mood fluctuations. Progress: Patient continues to endorse +SI. Minimally engages in treatment, states can not contract for safety outside of hospital. Patient has been calling for aftercare with not good repsonse. Problem/Goals #2 Problem #2: polysubstance abuse Goal (Short Term): 1) Refrain from substance use 2) Identify 3 triggers for use 3) Identify 3 sober supports 4) Identify 3 coping skills Goal (Compensation Business Partner): I will have family meeting on unit during my hospitalization I will attend all AA groups on unit I will Identify 3 coping skills for cravings to use I will set up aftercare for dual diagnosis program to address both mental health and substance abuse concerns Interventions: Learn ways to manage cravings to use substances accordingly and identify coping skills to prevent relapse from occurring due to anxious/depressed feelings.
[2016-05-13 16:09] VITALS: BP 130/52
[2016-05-13 19:37] VITALS: BP 116/69
--- NOTE | 2016-05-13 21:35 | NUR ---
PT IS LETHARGIC, SLEEPING LONG PERIODS OF THE EVENING IN PT ROOM. WHILE IN MILIEU, PT INTERACTS WELL WITH OTHERS. MOOD IS STABLE, AFFECT APPEARS FULL RANGE, COMMUNICATION IS ORGANIZED AND APPEARS NORMAL IN ALL RESPECTS, AND APPETITE IS NORMAL. PT DENIES SI AT THIS TIME.
[2016-05-14 07:34] VITALS: BP 105/63
--- NOTE | 2016-05-14 11:27 | NUR ---
PT VISIBLE IN THE MILIEU TODAY. HER GOAL WAS TALK TO DOCTOR ABOUT MEDICATION CONCERNS. PT HAS BEEN GOING TO GROUPS THIS MORNING, AND INTERACTING WITH PEERS. PT HAS BEEN COMPLIANT WITH STAFF DIRECTION, AND DENIES THOUGHTS OF HURTING HERSELF WHEN ASKED.
--- NOTE | 2016-05-14 11:57 | SOCIAL WORKER PROG NOTE PSYCH ---
Social Work Progress Note Progress Note Patient continues to endorse passive SI with plan to OD. Patient called numerous places this AM and did speak to someone at [facility]. They are reviewing her clinical and planning to call me vernon. We obtained patients PPD results from [facility] today from January 2016 which multiple rehabs are requiring with clinical information. We discussed the sober house option that was discussed originally when patient was in the ED located in [place], [place]. Patient states the issue is that they require up front $800 payment and she does not have this income. Patient states that she is unable to ask family at this time as they have their own expenses and are raising her 3 children presently. Patient seen attending more groups on the unit today and sleeping less.
[2016-05-14 12:36] VITALS: BP 130/56
[2016-05-14 16:20] VITALS: BP 114/72
--- NOTE | 2016-05-14 17:03 | CP SOUTH PROGRESS NOTE PSYCH ---
Psych (Inpt) Progress Note Progress Note Include the following elements, when applicable: Involvement in the active treatment of the patient with behavioral observations of the patient and the patient's response to the treatment. Review of the ongoing treatment process in the context of the treatment plan. Indication of how multi-disciplinary staff members are carrying out the treatment plan. Plans for future interventions and recommendations for revision of the treatment plan. Liaison with other physicians/providers. Progress Note: PSYCHIATRIST NOTE, 05/14/2016: I discussed this patient's slow progress to date, current mental status, treatment and discharge planning with staff team in the daily morning ITTM and met with her again myself in individual session. Patient's affect seems improved and mood even somewhat playful. However, she is still complaining of being fatigued during the day and requesting stimulant medications. We once again went over her medication list and sedative potential of the combination she is currently taking; at the end of this discussion patient agreed to go on just a low dose of Neurontin (300mg 3x/day) with a low dose PRN and that she would try not to utilize the PRN's. She denied the sedative effects of her methadone dose of 140mg/day and even told me that "when I was abusing my methadone and would take two days doses at once when I got hold of a couple...and I wasn't even sedated then...just buzzing." Patient noted having been on up to 450mg/day of Wellbutrin in the past; following further discussion and again reviewing R/B/SE of higher dose therapy, I agreed to increase Wellbutrin tomorrow by adding to the morning dose of Wellbutrin XL, 300mg, an additional 100mg of Wellbutrin SR in early afternoon (for a total of 400mg/day of Wellbutrin). Patient continues to work with her social workers, calling residential programs to remain on their waiting lists, telephoning programs and participating in preliminary interviews over the phone.
[2016-05-14 19:49] VITALS: BP 116/76
--- NOTE | 2016-05-14 21:01 | NUR ---
PT IS CALM, COOPERATIVE WITH STAFF AND PEERS, AND COMPLAINT WITH UNIT RULES. PT IS SLIGHTLY ISOLATIVE, SPENDING LOND PERIODS IN PT ROOM, BUT THIS SEEMS TO BE DECREASING THE EVENING PROGRESSES. MOOD IS STABLE, AFFECT IS FULL RNAGE, COMMUNICATION IS ORGANIZED AND NORMAL IN ALL REPECTS, AND APPETITE IS NORMAL. PT DENIES SI AT THIS TIME.
[2016-05-15 07:43] VITALS: BP 111/68
--- NOTE | 2016-05-15 11:41 | NUR ---
PT REFUSES MOST OF THE GROUPS OFFERED. SHE REPORTS FEELING ANXIOUS AND SHE FEELS HER PEERS DO NOT UNDERSTAND HER. SHE DENIES SUICIDAL THOUGHTS TODAY AND IS MED SEEKING AT TIMES. SHE STATES SHE MAY HAVE FOUND A FRIEND TO LIVE WITH AND MAY BE DISCHARGED TOMORROW
[2016-05-15 12:02] VITALS: BP 102/57
--- NOTE | 2016-05-15 13:24 | NUR ---
Pt present on the unit at times but not attending groups, isolative and sleeps/rests in bed a majority of the day and when encouraged/held accountable to be active in groups or in treament - becomes irritable and agitated and yells at staff and requires de-escalation and redirection. + sleep, appetite, VSS, mood overall stable but can be entiled and demanding towards staff re: medications or needs.
[2016-05-15 16:53] VITALS: BP 135/75
--- NOTE | 2016-05-15 18:31 | SOCIAL WORKER PROG NOTE PSYCH ---
Social Work Progress Note Progress Note Patient met with Nicki Valdes LCSW earlier in the day and mainly discussed discharge planning. Patient continues to call rehabs and today had missed a call to complete a phone screening at [facility]. Patient called back but it is unclear if she completed the screening due to having a difficult time getting through to nursing program coordinator. Patient reported passive SI today and continues to report not feeling safe discharging the hospital without secure discharge plan. Patient continues to be resistent about attending groups and requires encouragement from staff to do so.
--- NOTE | 2016-05-15 19:19 | CP SOUTH PROGRESS NOTE PSYCH ---
Psych (Inpt) Progress Note Progress Note Include the following elements, when applicable: Involvement in the active treatment of the patient with behavioral observations of the patient and the patient's response to the treatment. Review of the ongoing treatment process in the context of the treatment plan. Indication of how multi-disciplinary staff members are carrying out the treatment plan. Plans for future interventions and recommendations for revision of the treatment plan. Liaison with other physicians/providers. Progress Note: PSYCHIATRIST NOTE, 05/15/2016: I discussed this patient's slow progress to date, current mental status, treatment and discharge planning with staff team in the daily morning ITTM and also met with her again myself in individual session. Patient continues to be frustrated over not being accepted at any residential rehabs; however, her history of failing at or failing to follow through with many programs in the past, plus her being on high dose methadone maintenance makes things more difficult/complicated in terms of finding a referral for residential rehab. Once again, I went over with patient that I had split her high dose Wellbutrin ( 300mg of XL in AM and 100mg of SR in early afternoon) because of my reluctance to give her more than 300mg at once given possible increase in seizure risk associated with higher single dose therapy. Patient has not to my knowledge (or her memory) been on the combination of Wellbutrin and an SSRI (currently on Lexapro); it is still too soon to determine the effectiveness of this combined therapy. Plan is currently for discharge by the end of this week and for her to remain on various rehab waiting lists, if necessary.
[2016-05-15 19:28] VITALS: BP 118/71
--- NOTE | 2016-05-15 21:16 | NUR ---
PT IS ISOLATIVE AND WITHDRAWN, REMAINING IN BED FOR MAJORITY OF EVENING. WHEN PT IS IN COMMUNITY SHE IS EITHER AT MED ROOM OR EATING. MINIMAL INTERACTION WITH PEERS AND HAS POOR BOUNDRIES WITH STAFF. COOPERATES WITH STAFF. NO SI REPORTED. COMPLAINING OF CONSTANT PAIN. PT HAS A STABLE MOOD AND FULL RANGE AFFECT.
--- NOTE | 2016-05-16 06:36 | NUR ---
PT APPEARED TO SLEEP, EVEN WITHOUT PRN SEROQUEL. PT UP PROMPTLY AT 0530.
[2016-05-16 07:49] VITALS: BP 118/71
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
--- NOTE | 2016-05-16 11:35 | NUR ---
PT REPORTED FEELING VERY ANXIOUS THIS MORNING.SHE STATED SHE DOES NOT THINK THE NEURONTIN IS HELPING HER. SHE REFUSED HER WELLBUTRIN THIS MORNING SHE FEELS IT IS MAKING HER MORE ANXIOUS. DR YOU NOTIFIED. PT DID NOT ATTEND GROUPS AND IS SLEEPING IN HER ROOM AT THIS TIME. SHE DENIED ANY SUICIDAL THOUGHTS TODAY
[2016-05-16 12:02] VITALS: BP 103/59
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
--- NOTE | 2016-05-16 15:06 | CP SOUTH PROGRESS NOTE PSYCH ---
Psych (Inpt) Progress Note Progress Note Include the following elements, when applicable: Involvement in the active treatment of the patient with behavioral observations of the patient and the patient's response to the treatment. Review of the ongoing treatment process in the context of the treatment plan. Indication of how multi-disciplinary staff members are carrying out the treatment plan. Plans for future interventions and recommendations for revision of the treatment plan. Liaison with other physicians/providers. Progress Note: PSYCHIATRIST NOTE, 05/16/2016: I discussed this patient's progress to date, current mental status, treatment and discharge planning with staff team in the daily morning ITTTacho and Maribell Baltazar LCSW, and I met with patient together in individual session on this date. We went over with patient her course of treatment on [facility] to date and the ongoing difficulty in finding a residential rehab program able to admit patient directly from inpatient; patient noted she feels comfortable to continue on various waiting lists for residential while going back to live in the community with sober friends and f/u once again with [facility] in [place] , [place]., where she will continue to receive her daily methadone maintenance and other psychotropic medications. Patient shows no current evidence of suicidal or homicidal ideation, plans, intent or impulses.
[2016-05-16 16:18] VITALS: BP 119/68
[2016-05-16 19:57] VITALS: BP 105/81
--- NOTE | 2016-05-16 21:32 | NUR ---
PT IS VISIBLE ON UNIT, SOCIAL WITH PEERS AND STAFF. PT REMAINS MED SEEKING BUT IS COOPERATIVE AND COMPLIANT. ATTENDED AA AND WRAP UP MEETING WHERE SHE WAS DISRUPTIVE. NO COMPLAINTS OR SI REPORTED. PT HAS A STABLE MOOD AND FULL RANGE AFFECT.
--- NOTE | 2016-05-17 05:57 | NUR ---
PT APPEARED TO SLEEP WELL. SHE DID NOT NEED SEROQUEL PRN TO SLEEP THIS NIGHT.
[2016-05-17 07:59] VITALS: BP 118/54
--- NOTE | 2016-05-17 08:23 | NUR ---
HAD CONVERSATION WITH PATIENT. SHE STATES HER ONLY ISSUE IS GETTING HOUSING WHICH IS PROBLOMATIC DUE TO INABILITY TO HOLD A JOB BECAUSE SHE ISN'T PRESCRIBED A STIMULANT MEDICATION. SEEMS UNWILLING OR UNABLE TO ACCEPT PERSONAL RESPONSIBILITY.
--- NOTE | 2016-05-17 09:00 | SOCIAL WORKER PROG NOTE PSYCH ---
See Addendum Social Work Progress Note Progress Note Patient to discharge the hospital today. Patient reports that she spoke to her friend, Annabel, who resides in [place], [place] and she is able to temporarily reside with her. Patient reports Annabel to be a safe and sober friend. Patient will be able to take the bus daily to [place] to receive her methadone at [facility]. Patient also agreed to engage in their IOP and continue to seek residential rehab. Patient denies SI/HI/AH/VH at present and is able to contract for safety today. She reports a desire to remain sober and follow through with aftercare plans.
--- NOTE | 2016-05-17 10:26 | CP SOUTH PROGRESS NOTE PSYCH ---
Psych (Inpt) Progress Note Progress Note Include the following elements, when applicable: Involvement in the active treatment of the patient with behavioral observations of the patient and the patient's response to the treatment. Review of the ongoing treatment process in the context of the treatment plan. Indication of how multi-disciplinary staff members are carrying out the treatment plan. Plans for future interventions and recommendations for revision of the treatment plan. Liaison with other physicians/providers. Progress Note: PSYCHIATRIST NOTE (DISCHARGE), 05/17/2016: I discussed this patient's slow progress to date, current mental status, treatment and discharge plans with staff team today in the daily morning ITTM and also met with her again myself in individual session prior to discharging her to resume her longtime outpatient treatment with [facility] and methadone maintenance therapy with them as she awaits a residential rehab bed on the waiting lists of [facility], [facility] and others. Patient asserts she is "sick of living this way [dependent on drugs]" and wants to taper off the methadone as well. A more stable sober living situation would go a way towards helping patient establish and maintain early abstinence; hopefully, by the time she completes residential rehab her living arrangements will be on a more permanent and supportive basis. I have called into [facility] today: Wellbutrin XL, 300mg: i tab daily in AM (300mg/day); #14 with no refill (anti -depressant) Lexapro, 20mg: i tab daily in AM (20mg/day); #14 with no refill (anti- depressant augmentation) Topamax, 100mg: i tab HS (100mg/night); #14 with no refill (migraine prophylaxis) Neurontin, 300mg: i tab 3x/day i tab PRN (900-1,200mg daily); #56 with no refill (discomfort/anxiety/sleep) (patient refused offered smoking cessation aids, nicotine patch or gum, but was given an appointment card for the next scheduled [facility] on 05/29/2016 at 4pm, facilitated by Doreen Giang LCSW)
[2016-05-17] MEDS ORDERED: GABAPENTIN300 M2 PO ×2 (10:30→11:03)
[2016-05-17] MEDS ORDERED: TOPAMAX100 M1 PO (11:04)
[2016-05-17] MEDS ORDERED: BUPROPION XL300 M1 PO (11:05)
[2016-05-17] MEDS ORDERED: LEXAPRO20 M1 PO (11:05)
[2016-05-17] MEDS ORDERED: MELATONIN5 M7 PO (11:06)
--- NOTE | 2016-05-17 11:32 | NUR ---
WILL BE DISCHARGED TODAY TO [facility], STAYING WITH A SOBER FRIEND WHILE CONTINUING TO PURSUE REHAB BED. MOOD IS STABLE, FULL RANGE OF AFFECT. GIVEN EDUCATION ON SUICIDE PREVENTION AND BIPOLAR D/O. HAS SHOWN LITTLE ABILITY TO TAKE RESPONSIBILITY FOR OWN PROBLEMS.
--- NOTE | 2016-05-17 12:39 | DISCHARGE SUMMARY REPORT-PSYCH ---
See Addendum Visit Information Visit Dates/Diagnosis' Admission Date: 05/03/16 Discharge Date: 05/17/16 Reason for Admission: "I'd like to get mentally stable." Psy Discharge Primary Diag: Unspecified Depression Psy Discharge Secondary Diag: Opioid Use Disorder (on methadone maintenance tx Hospital Course Significant Lab Findings: glucose = 124; alkaline phosphatase = 136; WBC = 6.1; ULI = less than 10.0; urine for drugs of abuse--positive for cocaine (greater than 1,000ng/ml) and methadone (greater than 735ng/ml; patient is on methadone maintenance therapy at this time); for further details of all normal range laboratory data from this admission, see the electronic medical record Course Complications: none Consultations: patient was seen for an admission medical H&P by Laila Henson M.D., and followed medically during this admission by the [facility] attending physicians Allergies: Coded Allergies: trazodone (Intermediate, NIGHTMARES 05/02/16) aripiprazole (From Abilify) (STRANGE MENTAL FEELING 05/02/16) Hospital Course/TX Response: (see also all daily M.D., SAND HAULER and ARTIFACTS CONSERVATOR progress notes in the electronic medical record) At various times during the course of admission, patient requested various potentially abusable medications, including Vyvanse, benzodiazepines and barbiturates; we discussed the clear contraindications to her being prescribed such drugs several times over the course of admission. On many presentations to the [facility] in recent years patient's urine tox. screen had showed positive for amphetamines and cocaine. Topamax was added to help with migraine prophylaxis and Fioricet prescribed until it was clear that she was merely abusing it. Patient did agree to reintroduction of Wellbutrin while she continued concomitantly on treatment withLexapro; she had been on each of those medications separately but not together; she agreed to engage in a trial of reasonable length on this combination. Patient very slowly mobilized herself to participate in search for a residential rehab placement; though she was not accepted for direct transfer to a residential program from [facility] patient was on the waiting list for [facility], [facility] and others and planned to continue to contact programs regularly until she gains admission to one; in the meantime, patient will be returning to ongoing outpatient treatment with [facility] in [place] and will enter their IOP. She was encouraged to be regular in attending local AA/NA meetings and speaking often with a sponsor. By date of discharge, patient was brighter in affect, close to euthymic, future-oriented, showing no evidence of suicidal or homicidal ideation , plans, intent or impulses and well aware of her safety plan should she in future come to believe herself at risk for self-harming behaviors. Discharge HBIPS - Tobacco Use Treatment Offered Post DC Medications Offered: Script Given-See Med List Post DC Tobacco Treatment Plan: [facility] Appt Date: 05/29/16 (groups on 05/29 and 06/12/2016) - EtOH/Drug Use D/O Treatment Offered Post DC Medications Offered: NA-No EtOH/Drug Use D/O Post DC EtOH/SubAbuse TX Plan: NA-No EtOH/Drug Use D/O Metabolic Screening - Screen if on a Neuroleptic Medication - Metabolic screening should include: - Blood Pressure, BMI, Glucose or Hgb A1c, & a - Lipid profile from within the past 365 days. Metabolic Screening ([X]) Not Applicable, patient not on a neuroleptic. OR () Patient on a neuroleptic(s) . Enter below results for Glucose or Hemoglobin A1C, and lipid panel if obtained during the last 365 days. BMI: 41.900 Blood Pressure: 118/54 Laboratory Results (If applicable): Discharge Instructions General Discharge Information Discharge Medications: Discharge Medications (dose, route, frequency, indications): Multiple Neuroleptics: ([X]) Not Applicable OR Document below three failed attempts at monotherapy, or a plan to taper to monotherapy, or augmentation of Clozapine. () Patient's Diet: regular Patient's Activity: without restrictions DC Disposition: to home with father (and continuation on waiting lists for various residential rehab programs) Recommendations: I would recommend that this patient not be prescribed any potentially addictive medication (particularly amphetamines and hypnotics/sedatives/anxiolytics). I have advised patient to remain on current Wellbutrin/Lexapro combination therapy in optimal dosages and for adequate period of time to provide an adequate trial period. Referred To: Patient was referred to resume her long-term outpatient treatment with [facility] in [place] and will continue in their methadone maintenance program and enter treatment in their IOP while continuing on the waiting lists of various residential rehab programs ([facility], [facility], etc.). She has also been given an appointment card for the next [facility] on 05/29 and at 4pm, facilitated by Doreen Giang LCSW. Patient has been urged to regularly attend local AA/NA meetings and acquire and regularly communicate with a sponsor. Copies To: YOUSIF DE SOUZA,DENNISE
== END 2016-05-17 13:36 | DRG 754 ==
LOC: ERH 06:48 → ERHI 05-03 20:09 → ENPENDDIS 05-03 20:09 → CP SOUTH 05-03 20:09
PROVIDERS: Emergency Medicine; Psychiatry & Neurology Addiction Medicine; ADMIT Psychiatry & Neurology Psychiatry
DX: F32.9 Major depressive disorder, single episode, unspecified (principal); F11.20 Opioid dependence, uncomplicated
CPT/HCPCS: 36415; 80307; 93005; 93010; G0463; G0480; J3490

== ENCOUNTER 2017-08-02 13:52 | Emergency (ER) | payer OTHER ==
[~2017-08-02] VITALS: Ht 152.4 cm; Wt 81.6 kg
[~2017-08-02 13:52] MED LIST changes: +BUPROPION XL300 M1 PO; +GABAPENTIN300 M2 PO; +HYDROXYZINE PAM50 M1 PO; +LEXAPRO10 M1 PO; +MELATONIN5 M7 PO; +METHADONE HCL10 M1 PO; +MOTRIN IB200 M1 PO; +REMERON15 M2 PO; +TOPAMAX100 M1 PO
--- NOTE | 2017-08-02 14:20 | ED PSYCHIATRIC COMPLAINT ---
See Addendum History of Present Illness General Chief Complaint: Psychiatric Related Complaint Stated Complaint: +SI Source: patient, old records Exam Limitations: no limitations Allergies Coded Allergies: trazodone (Intermediate, NIGHTMARES 05/02/16) aripiprazole (From Abiliy) (STRANGE MENTAL FEELING 05/02/16) Reconcile Medications Escitalopram Oxalate (Lexapro) 20 MG TABLET 1 TAB PO DAILY MENTAL HEALTH ( Reported) Hydroxyzine Pamoate (Vistaril) 50 MG CAPSULE 1 CAP PO TID PRN ANXIETY ( Reported) Ibuprofen (Motrin Ib) 200 MG TABLET 800 MG PO PRN HEADACHES (Reported) Methadone Hydrochloride (Methadone HCl) 10 MG TABLET 80 MG PO OPIOD ABUSE ( Reported) Mirtazapine (Remeron) 15 MG TABLET 1 TAB PO QPM SLEEP (Reported) Triage Note: PT TO TRIAGE COMPLAINS OF INCREASED DEPRESSION AND POSITIVE SI THOUGHTS, WITH PLAN TO OD, PT WAS [facility] 2 DAYS AGO AND ENDED IN RESTRAINTS PER PT. Triage Nurses Notes Reviewed? yes : No Patient currently breastfeeds: No HPI: Patient presents with suicidal ideations. Patient states that she attempted suicide by overdose about [place] on Friday. Patient was admitted to [facility] from Friday to Friday but was discharged. Patient states he was still suicidal upon discharge. Patient went to a [facility] to see if she could detox from benzos but she was discharged from there as well. Patient went back to [facility] and spent the night in the emergency Department however she was discharged yet again. Patient feels unsafe at home. And feels that she is still a danger to herself so comes in here. Patient states that she did receive her morning dose of methadone while at [facility]. Patient denies any homicidal ideations. Patient denies any delusions or hallucinations. Patient is also experiencing a migraine headache. Similar symptoms in the past. Left frontal throbbing headache. Positive photophobia. Positive nausea. She rates the pain at 8 out of 10. THERE is no radiation of the pain. (Jarad RODRÍGUEZ,Rio Persaud) Vital Signs & Intake/Output Vital Signs & Intake/Output Vital Signs Date Time Temp Pulse Resp B/P B/P Pulse O2 O2 Flow FiO2 Mean Ox Delivery Rate 08/05 2135 98.7 111 20 161/78 98 Room Air 08/04 1958 99.0 100 18 150/89 98 Room Air 06/11 1741 100.0 08/04 1720 99.4 100 20 154/91 99 08/04 1409 98.2 99 20 162/78 96 Room Air 08/04 1212 98.0 102 18 164/78 97 Room Air 08/04 0851 98.2 90 20 150/68 96 Room Air 08/04 0623 98.2 110 18 138/69 98 Room Air (Lenin VILLARREALSeymour ConnerMichael) Past History Travel History Traveled to [place] past 21 day No Medical History Any Pertinent Medical History? 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 Relation not specified for: FH: depression Hx Contributory? No (Jarad RODRÍGUEZ,Rio Persaud) Review of Systems Review of Systems Constitutional: Reports: no symptoms. EENTM: Reports: no symptoms. Respiratory: Reports: no symptoms. Cardiovascular: Reports: no symptoms. GI: Reports: see HPI, nausea. Genitourinary: Reports: no symptoms. Musculoskeletal: Reports: no symptoms. Skin: Reports: no symptoms. Neurological/Psychological: Reports: see HPI, depressed, headache. Hematologic/Endocrine: Reports: no symptoms. Immunologic/Allergic: Reports: no symptoms. All Other Systems: Reviewed and Negative (Rio Abraham MD) Physical Exam Physical Exam General Appearance: well developed/nourished, mild distress Head: atraumatic Eyes: Bilateral: PERRL, EOMI. Ears, Nose, Throat: normal pharynx, normal ENT inspection, hearing grossly normal Neck: normal inspection, supple Respiratory: normal breath sounds Cardiovascular: regular rate/rhythm Gastrointestinal: soft, non-tender Extremities: normal range of motion Neurological/Psychiatric: no motor/sensory deficits, awake, alert, calm, oriented x 3 Appearance/Memory/Insight: appropriate appearance, appropriate insight Behavoir/Eye Contact/Speech: cooperative, normal speech, good eye contact Thoughts/Hallucinations: normal thought pattern, no apparent hallucination Skin: intact, normal color, warm/dry SAD PERSONS Done? CRISIS CONSULT OBTANED (Jarad RODRÍGUEZ,Rio Persaud) Progress Differential Diagnosis: drug intoxication, drug overdose, drug withdrawal, electrolyte abnormality Hand-Off Endorsed To: Harriet RODRÍGUEZ,Yobany Armstrong Endorsed Time: 1899 Pending: other (BED SEARCH) Comments: Patient has been seen and evaluated by clinician oncology. A bed search is underway. (Jarad RODRÍGUEZ,Rio Persaud) Plan of Care: Orders Procedure Date/time Status Continuous Observation Monitor 08/04 1900 Active Continuous Observation Monitor 08/04 1500 Active Continuous Observation Monitor 08/04 1100 Active Continuous Observation Monitor 08/04 0700 Active Current Medications Sig/Amanuel Start time Last Medication Dose Stop Time Status Admin Gabapentin 300 MG Q8 08/04 2203 UNVr (Neurontin) Lorazepam 1 MG Q6P PRN 08/04 2200 AC (Ativan) Loperamide HCl 2 MG Q3P PRN 08/04 0830 AC (Imodium) Quetiapine Fumarate 50 MG QPM PRN 08/03 2115 AC 08/03 (SEROquel) 2114 Benzonatate 100 MG TID 08/03 1715 UNVr 08/04 (Tessalon Capsule) 1741 Ibuprofen 600 MG TID PRN 08/03 1445 AC 08/04 (Motrin) 1741 Methadone HCl 80 MG DAILY 08/03 09 UNVr 08/04 (Dolophine) 0630 Escitalopram Oxalate 20 MG 0800 08/03 0800 UNVr 08/04 (Lexapro) 0829 Mirtazapine 15 MG QPM 08/02 2100 UNVr 08/04 (Remeron) 2200 Hydroxyzine HCl 25 MG TID PRN 08/02 1545 AC 08/03 (Atarax) 2033 (Seymour Phelps DO) Hand-Off Endorsed To: Kiah RODRÍGUEZ,[place]ymour [place] Pending: other (bed search) (Kathy RODRÍGUEZ,Eduar) Comments: 08/04/2017 7:45:17 PM patient signed out to me by Dr. 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 08/04/2017 11:11:07 PM patient signed out to Dr. Abraham at shift private branch exchange operator (Kiah RODRÍGUEZ,[place]ymour [place]) Departure Departure Disposition: STILL A PATIENT Condition: Stable Clinical Impression Primary Impression: Suicidal ideations Secondary Impressions: Migraine Referrals: Patient Has No Primary Care Dr (PCP/Family) Departure Forms: Customer Survey General Discharge Information (Jarad RODRÍGUEZ,Rio Persaud) Departure Comments 08/03/17 The patient was signed out to me by Dr. Abraham at 7 PM. She was evaluated at 11:30 PM. She had no complaints. She is pending disposition by crisis. She will be signed out to Dr. Abraham at 7 AM. (Seymour Phelps DO) Departure Comments 08/04/17, 7am... pt to be signed out to dr. chavez (Harriet RODRÍGUEZ,Yobany Armstrong)
--- NOTE | 2017-08-02 15:51 | ED PSYCH CRISIS CONSULTATION ---
See Addendum Crisis Consult Basic Assessment Date of Consult: 08/02/17 Responsible Person/Accompanied By: Patient brought self to ED Insurance Authorization: Insurance #1: Insurance name: LONNY PHAN Phone number: Policy number: [id number] Group number: Authorization number: ED Provider: Patient's ED Provider: Jarad RODRÍGUEZ,Rio Persaud Primary Care Physician: Patient's PCP: Patient Has No Primary Care Dr PCP's Phone Number: Current Psychiatrist: None reported Chief Complaint: Psychiatric Related Complaint Patient's Quote: " I need help." Present Illness: Pt is a 37 year old single female who self presents to ED due to increased depression and suicidal thoughts. Pt reports that she attempted to overdose on her fiorecet on Friday as a suicide attempt. She reports taking 15 pills in front of her significant other. He called an ambulance and pt was brought to [facility] ED where she was kept in observation until yesterday. Pt was discharged home and not admitted. Pt reports that she returned back to [facility] ED last evening because she started to not feel safe again. She spent the night in their ED and was informed that they were not admititng her this morning. Pt reports continued SI with plan to OD. She reports that she resides with her significant other, the father of her children, and that he is a substance user. Pt reports not feeling safe returning there because of fear of continued substance abuse. Pt reports smoking crack daily, about $200 worth, last use on Friday07/30/17. She also abuses xanax every othe day, an unknown amount. Pt has a long hx of mental health and substance abuse treatment. Pt most recently was at [facility] for detox in June 2017. Pt reports that she is currently on the waiting list for [facility]. She relapsed while waiting at [facility] for bed at [facility] after completing detox. Pt's most recent psychiatric hospitalization was at [facility] in April 2017 where she was hospitalized for 3 weeks due to SI. Pt has hx of bipolar disorder diagnosis and is not currently being treated in the community. She is on methadone maintenance at [facility]. Pt reports being on 80mg of methadone maintenance. Pt is seeking voluntary admission to in psychiatric treatment at this time. [place]-Suicide Severity Rating Scale was completed to further assess pt. Pt has recent suicide atempt, active suidial ideation with plan, hx of previous psychiatic diagnosis and treatment, hopeless, helpless, perceived burden on family, method for suicide available. Patient's Address: [address] [place] [address] Other Phone Number: Who Do You Live With? Significant Other Family/Informants Interviewed: no family/collateral ID'd, Does not want her next of kin to be contacted due to partner actively using substances. Allergies - Coded Allergies: trazodone (Intermediate, NIGHTMARES 05/02/16) aripiprazole (From Abilify) (STRANGE MENTAL FEELING 05/02/16) Current Medications - Scheduled Medications Escitalopram Oxalate (Lexapro) 20 MG TABLET 1 TAB PO DAILY MENTAL HEALTH ( Reported) Entered as Reported by Meche Sandoval on 07/07/171841 Mirtazapine (Remeron) 15 MG TABLET 1 TAB PO QPM SLEEP (Reported) Entered as Reported by Meche Sandoval on 07/07/171841 Scheduled PRN Medications Hydroxyzine Pamoate (Vistaril) 50 MG CAPSULE 1 CAP PO TID PRN ANXIETY ( Reported) Entered as Reported by Meche Sandoval on 07/07/171841 Ibuprofen (Motrin Ib) 200 MG TABLET 800 MG PO PRN HEADACHES (Reported) Entered as Reported by Meche Sandoval on 07/07/171840 Miscellaneous Medications Methadone Hydrochloride (Methadone HCl) 10 MG TABLET 80 MG PO OPIOD ABUSE ( Reported) Entered as Reported by Meche Sandoval on 07/07/171840 Laboratory Results: Laboratory Tests 08/02/17 1400: Urine Opiates Screen < 100, Methadone Screen > 735 H, Barbiturate Screen > 800 H, Ur Phencyclidine Scrn 8.60, Amphetamines Screen 136, U Benzodiazepines Scrn > 800 H, Urine Cocaine Screen 892 H, Urine Cannabis Screen < 5.00, Urine Test NEGATIVE (Maribell Baltazar LCSW) Past History Past Medical History Neurological: migraine EENT: NONE Cardiovascular: NONE Respiratory: NONE Gastrointestinal: constipation Hepatic: NONE Renal: NONE Musculoskeletal: NONE Psychiatric: anxiety, depression, insomnia, opioid dependence, substance abuse, METHADONE MAINTENANCE ADD Endocrine: NONE Blood Disorders: NONE Cancer(s): NONE 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 Physical Limitations (Interventions): None identified Psychiatric Treatment History Psych Treatment Psychiatric Treatment Yes Inpatient Treatment Yes Outpatient Treatment Yes Location of Treatment Multiple admissions in [facility], [facility] Reason for Treatment SI Dates of Treatment Multiple treatment episodes Response to Treatment Poor, continues to not follow through with outpatient treatment. Diagnosis by History: Depression, polysubstance abuse Substance Use/Abuse History Drug Use/Abuse 1 Substances Used/Abused Yes Substance Used/Abused Crack Cocaine First Use unknown Last Used Friday How much used/taken $200 worth How often daily For how long unkown period of time Drug Use/Abuse 2 Substances Used/Abused Yes Substance Used/Abused Benzodiazepines First Use Unknown Last Used Friday How much used/taken Unknown amount of xanax How often every other day For how long unknown period of time Substance Abuse Treatment Substance Abuse Treatment Past Substance Abuse TX Yes Inpatient Treatment Yes Outpatient Treatment Yes Location of Treatment Multiple treatment episodes, most recent tx at [facility] detox facility Reason for Treatment polysubstance abuse Dates of Treatment Multiple treatment episodes Response to Treatment Poor, continues to relapse (Delaney DE SOUZA,Maribell) Current Mental Status Mental Status Orientation: Person, Place, Situation Affect: Anxious, Depressed, Sad Speech: Normal Neuro-vegetative: Loss of Interest, Sleep Disturbance Appearance Appearance- Dress/Hygiene: In hospital issued scrubs, noted poor hygiene, good eye contact, easy to engage in conversation. Behaviors Thought Process: WNL Thought Content: WNL Memory: WNL Insight: WNL SI/HI Risk Assessment Past Suicidal Ideation/Attempts Yes Current Suicidal Ideation/Att Yes Past Homicidal Ideation/Att: No Current Homicidal Ideation/Attempts No Degree of Intent: Plan, States Intent Danger To: Self Gravely Disabled: Lack of Insight, Poor Impulse Control, Poor Judgment Risk Factors: high anxiety/distress, history of suicide atmpts, SA/MH hospitalized, substance abuse, poor impulse control, limited support Lethality Ratin PTSD Checklist PTSD Done? patient declined ED Management Sitter: Yes Restraints: No (Delaney DE SOUZA,Maribell) DSM5/PS Stressors/Medical Prob Diagnosis' (DSM 5, Stressors, Medical): Unspecified Bipolar d/o F31.30 Benzo Use D/O F13.20 Cocaine Use D/O F14.20 Opiate Use d/o on maintenance therapy F11.20 Unspecified Bipolar d/o F31.30 relationship conflict seperation from family Current GAF: 26 (Maribell Baltazar LCSW) Departure Disposition Psych Medical Clearance Date: 08/02/17 Medically Cleared at: 1430 Time Started: 1430 Time Ended: 1535 Psychiatrist Consulted: Dr. Aguilar Date Disposition Established: 08/02/17 Time Disposition Established: 1529 Plan for Disposition - Modality: Inpatient Psychiatry Facility: Bed Search Rationale for Disposition: +SI with recent suicide attempt by OD. Hx of long mental health hx, bipolar disorder dx and not in treatment currently. Type of IP Admission: Voluntary Referrals Patient Has No Primary Care Dr (PCP/Family) (Maribell Baltazar LCSW)
[2017-08-02 17:14] LABS: ABSOLUTE BASOPHIL COUNT 0.1 /CUMM (0.0-0.2); ABSOLUTE EOSINOPHIL COUNT 0.2 /CUMM (0.0-0.7); ABSOLUTE GRANULOCYTE CT 10.2 /CUMM (1.4-6.5); ABSOLUTE LYMPH COUNT 1.4 /CUMM (1.2-3.4); ABSOLUTE MONOCYTE COUNT 0.5 /CUMM (0.10-0.60); BASOPHIL % 0.4 % (0.0-2.0); EOSINOPHIL % 1.4 % (0-5); GRANULOCYTE % 82.5 % (42.2-75.2); HEMATOCRIT 34.7 % (37-47); MEAN CORPUSCULAR HGB 26.2 PG (27.0-31.0); MEAN CORPUSCULAR HGB CONC 32.4 G/DL (33.0-37.0); MEAN CORPUSCULAR VOLUME 80.9 FL (81.0-99.0); MEAN PLATELET VOLUME 7.9 FL (7.4-10.4); PLATELET COUNT 226 /CUMM (130-400); RBC DISTRIBUTION WIDTH 15.4 % (11.5-14.5); RED BLOOD CELL CT 4.29 /CUMM (4.20-5.40); WHITE BLOOD CELL COUNT 12.4 /CUMM (4.8-10.8)
--- NOTE | 2017-08-03 13:48 | ED PSYCHIATRIST/APRN CONSULT ---
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 Wants hosptailization. MSE General appearance: good hygiene and grooming; Attitude: cooperative; Eye contact: appropriate; Movement: no psychomotor agitation or slowing; Speech: nl fluency, nl rate/rhythm, nl volume, nl prosody; Mood: "terrible" Affect: still very irritable, flat, appropriate, constricted, non-labile, congruent; Thought process: linear and goal-directed; Thought content: ++ SI, denied HI, no paranoid ideation; Perception: denied hallucinations- auditory, visual, does not appear to be responding to internal stimuli; I/J: limited Pt with worsening mood and SI in need of acute psychiatric stablization. Bed search underway.
--- NOTE | 2017-08-04 21:38 | ED PSYCHIATRIST/APRN CONSULT ---
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 The patient was seen for follow-up during continuum of care. She has been in the emergency room since Friday night. She presented with suicidal ideation and plan to overdose. She has a lengthy psychiatric history, history of substance abuse, multiple hospitalizations for psychiatric and substance use reasons. She has not been able to maintain sobriety and has not been compliant with follow-up treatment. We reviewed the old records from Inpatient Psychiatry and IOP as well as outpatient psychiatry. We reviewed the emergency department notes including Dr. Aguilar's note from yesterday. We reviewed the crisis clinicians' assessments. The patient was interviewed. She presents as a medium height and weight female dressed in hospital gown, dishevelled, sleeping in her hospital bed. She was easily awakened and very upset because of it. She was loud, demanding, very irritable. She was asking about benzodiazepine taper, was complaining of inability to sleep , continues to endorse suicidal ideation with plan to overdose on pills. There is no overt psychosis, no delusional ideation, denies perceptual disturbances. She is oriented to time place, person and situation. Says that she really wants treatment"I need to get my medication straightened so I'll be right in my head". Claims that she has been on Lexapro for a long time and "it has never worked." She strongly believes she needs inpatient stabilization for safety reasons. We suggested that she is placed on CIWA with Ativan per CIWA protocol, to be given gabapentin 300 mg. times a day for mood stabilization and anxiety control, to receive Seroquel 50 mg alongside Remeron 15 mg at bedtime in order to improve sleep onset and quality of sleep. The patient reports she is in the methadone program at the [facility] and that she is currently taking 80 mg methadone having reduced it from 120 mg. Says"this is a good dose for me, I don't want to be on no hundreds of mg. but I am scared to be off it bedause I know I'll be doing heroin and ." She has been on dosages as high as 175 mg daily (as of April 2013 when she was in [facility]). We will continue the bed search, the patient needs stabilization in a safe, structured environment. Will be reevaluted tomorrow.
[2017-08-05 17:14] VITALS: BP 137/74
== END 2017-08-05 17:48 | disposition short-term general hospital (02) ==
LOC: ERH 13:52
PROVIDERS: Physician Assistant Medical
DX: R45.851 Suicidal ideations (principal); G43.909 Migraine, unspecified, not intractable, without status migrainosus; F11.20 Opioid dependence, uncomplicated
CPT/HCPCS: 80307; 81025; G0463; G0480; J3101

== ENCOUNTER 2017-10-30 15:18 | Emergency (ER) | payer OTHER ==
[~2017-10-30] VITALS: Ht 152.4 cm; Wt 77.1 kg
--- NOTE | 2017-10-30 15:51 | ED PSYCHIATRIC COMPLAINT ---
History of Present Illness General Chief Complaint: Psychiatric Related Complaint Stated Complaint: +SI, PER PT OFF PSYCH MEDS FOR A WHILE Source: patient Exam Limitations: no limitations Vital Signs & Intake/Output Vital Signs & Intake/Output Vital Signs Date Time Temp Pulse Resp B/P B/P Pulse O2 O2 Flow FiO2 Mean Ox Delivery Rate 11/03 818 99.0 85 18 126/64 98 Room Air 11/03 0640 76 18 98/51 100 Room Air 11/02 2253 98.5 78 20 106/60 98 Room Air 11/02 1831 97.7 89 20 122/76 98 Room Air 11/02 1611 98.5 78 20 118/58 98 Room Air Allergies Coded Allergies: trazodone (Intermediate, NIGHTMARES 05/02/16) aripiprazole (From Abilify) (STRANGE MENTAL FEELING 05/02/16) Reconcile Medications Methadone Hydrochloride (Methadone HCl) 10 MG TABLET 90 MG PO DAILY MENTAL HEALTH (Reported) Triage Note: PT TO ED WITH C/O "I FEEL VERY DEPRESSED, I WAS ON REMERON AT NIGHT AND I WAS DOING REALLY GOOD ON IT, AND I WAS STUPID AND RELAPSED WITH COCAINE AND STOPPED TAKING THE MED". PT ALSO C/O " SI, CRYING, SLEEPIN ALOT, JUST WANT TO GO TO SLEEP AND NOT WAKE UP". Triage Nurses Notes Reviewed? yes Onset: Abrupt Timing: recent history : No Patient currently breastfeeds: No HPI: 37-year-old female comes into the emergency room for further evaluation of suicidal ideation. Patient reports that she moved in with her friend recently who was relapsed on drugs and she didn't realize it which cause her to relapse cocaine. She's had suicidal thoughts and feeling depressed. Denies any other drug use. Denies any alcohol use. Remote history of suicide attempts. She comes in seeking further evaluation. (Lokesh Ayala) Past History Travel History Traveled to [place] past 21 day No Medical History Any Pertinent Medical History? see below for history Neurological: migraine EENT: NONE Cardiovascular: NONE Respiratory: NONE Gastrointestinal: constipation Hepatic: NONE Renal: NONE Musculoskeletal: NONE Psychiatric: anxiety, depression, insomnia, opioid dependence, substance abuse, METHADONE MAINTENANCE ADD Endocrine: NONE Blood Disorders: NONE Cancer(s): NONE HAM CLERK/Reproductive: NONE History of MRSA: No History of VRE: No History of CDIFF: No Surgical History Surgical History: Psychosocial History Who do you live with Significant Other Services at Home None What is your primary language Egyptian Tobacco Use: Current Daily Use Daily Tobacco Use Amount/Type: => 5 Cigarettes daily ETOH Use: denies use Illicit Drug Use: denies illicit drug use Family History Family History, If Any: FATHER (DM). Relation not specified for: FH: depression Hx Contributory? No (Lokesh Ayala) Review of Systems Review of Systems Constitutional: Reports: no symptoms. EENTM: Reports: no symptoms. Respiratory: Reports: no symptoms. Cardiovascular: Reports: no symptoms. GI: Reports: no symptoms. Genitourinary: Reports: no symptoms. Musculoskeletal: Reports: no symptoms. Skin: Reports: no symptoms. Neurological/Psychological: Reports: see HPI. Hematologic/Endocrine: Reports: no symptoms. Immunologic/Allergic: Reports: no symptoms. All Other Systems: Reviewed and Negative (Lokesh Ayala) Physical Exam Physical Exam General Appearance: well developed/nourished, mild distress Head: atraumatic Eyes: Bilateral: normal appearance. Ears, Nose, Throat: normal ENT inspection, hearing grossly normal Neck: normal inspection Respiratory: no respiratory distress Cardiovascular: regular rate/rhythm Extremities: normal range of motion Neurological/Psychiatric: alert, normal mood/affect Appearance/Memory/Insight: appropriate appearance Behavoir/Eye Contact/Speech: cooperative Skin: intact, normal color, warm/dry SAD PERSONS SAD PERSONS Response Value Depression/Hopelessness? yes 2 Previous Attempts/Psych Care yes 1 Excessive Ethanol/Drug Use? yes 1 Rational Thinking Loss? yes 2 Single//? yes 1 Social Support? has no support 1 Total 8 SAD PERSONS Done? yes (Lokesh Ayala) Progress Differential Diagnosis: dementia, drug intoxication, drug overdose, drug withdrawal, DEPRESSION, BIPOLAR, Plan of Care: Current Medications Sig/Amanuel Start time Last Medication Dose Stop Time Status Admin Methadone HCl 70 MG ONCE ONE 11/06 799 UNVr (Dolophine) 11/05 800 Methadone HCl 75 MG ONCE ONE 11/05 799 UNVr (Dolophine) 11/04 800 Ibuprofen 600 MG 4 TIMES/DAY PRN 11/02 944 UNVr (Motrin) Mirtazapine 7.5 MG AT BEDTIME 11/01 2100 UNVr 11/02 (Remeron) 204 Benztropine Mesylate 1 MG Q6P PRN 11/01 114 UNVr (Cogentin 1 MG Tablet) Benztropine Mesylate 1 MG Q6P PRN 11/01 1145 UNVr (Cogentin) Haloperidol 5 MG Q6P PRN 11/01 114 UNVr (Haldol) Haloperidol 5 MG Q6P PRN 11/01 1145 UNVr 11/01 (Haldol) 114 Lorazepam 2 MG Q6P PRN 11/01 1145 UNVr 11/01 (Ativan) 114 Melatonin 5 MG AT BEDTIME 10/31 2100 UNVr 11/02 (Melatonin) 2044 (Lokesh Ayala) Hand-Off Endorsed To: Eduar Chavez MD Endorsed Time: 99 Pending: consult (crisis) Comments: The patient was signed out to me by [employer]. This patient is pending crisis evaluation and disposition. The patient was signed out to Dr. Chavez pending crisis evaluation and disposition. (Varsha Rebolledo) Hand-Off Endorsed To: Josiah Esteves MD Endorsed Time: 699 Pending: consult (Eduar Chavez MD) Hand-Off Endorsed To: Yobany Larios MD Endorsed Time: 1937 (Josiah Esteves MD) Hand-Off Endorsed To: Eduar Chavez MD Endorsed Time: 699 Pending: consult (Jarad RODRÍGUEZ,[place]) Departure Departure Condition: Stable Departure Forms: Customer Survey General Discharge Information (Lokesh Ayala) Departure Disposition: STILL A PATIENT (Varsha Rebolledo) Departure Clinical Impression Primary Impression: Suicidal ideation Secondary Impressions: Cocaine abuse Referrals: Patient Has No Primary Care Dr (PCP/Family) PA/RECRUITMENT INTERNSHIP Co-Sign Statement Statement: ED Attending supervision documentation- x I saw and evaluated the patient. I have also reviewed all the pertinent lab results and diagnostic results. I agree with the findings and the plan of care as documented in the PA's/RECRUITMENT INTERNSHIP's documentation. I have reviewed the ED Record and agree with the PA's/RECRUITMENT INTERNSHIP's documentation. [] Additions or exceptions (if any) to the PAs/RECRUITMENT INTERNSHIP's note and plan are summarized below: [] (Eduar Chavez MD) Departure Comments pt to be signed out to dr. frausto, 11/03/17, 7am. PA/RECRUITMENT INTERNSHIP Co-Sign Statement Statement: ED Attending supervision documentation- [] I saw and evaluated the patient. I have also reviewed all the pertinent lab results and diagnostic results. I agree with the findings and the plan of care as documented in the PA's/RECRUITMENT INTERNSHIP's documentation. [x] I have reviewed the ED Record and agree with the PA's/RECRUITMENT INTERNSHIP's documentation. [] Additions or exceptions (if any) to the PAs/RECRUITMENT INTERNSHIP's note and plan are summarized below: [] (Harriet RODRÍGUEZ,Yobany Armstrong) Departure Comments 11/03/17 12:44 PM Patient was signed out to me by Dr. Larios. She has been accepted to [facility] in [place] by Dr Monroe. (Lenin VILLARREAL,Seymour Davis) (Harriet RODRÍGUEZ,Yobany Armstrong) [] Additions or exceptions (if any) to the PAs/RECRUITMENT INTERNSHIP's note and plan are summarized below: [] (Harriet RODRÍGUEZ,Yobany Armstrong)
[2017-10-30 15:58] LABS: ABSOLUTE BASOPHIL COUNT 0 /CUMM (0.0-0.2); ABSOLUTE EOSINOPHIL COUNT 0.1 /CUMM (0.0-0.7); ABSOLUTE GRANULOCYTE CT 4.8 /CUMM (1.4-6.5); ABSOLUTE LYMPH COUNT 2.6 /CUMM (1.2-3.4); ABSOLUTE MONOCYTE COUNT 0.5 /CUMM (0.10-0.60); BASOPHIL % 0.5 % (0.0-2.0); EOSINOPHIL % 1.4 % (0-5); GRANULOCYTE % 59.2 % (42.2-75.2); HEMATOCRIT 40.5 % (37-47); MEAN CORPUSCULAR HGB 26.2 PG (27.0-31.0); MEAN CORPUSCULAR HGB CONC 32.7 G/DL (33.0-37.0); MEAN CORPUSCULAR VOLUME 80.1 FL (81.0-99.0); MEAN PLATELET VOLUME 7.9 FL (7.4-10.4); PLATELET COUNT 244 /CUMM (130-400); RBC DISTRIBUTION WIDTH 16.8 % (11.5-14.5); RED BLOOD CELL CT 5.06 /CUMM (4.20-5.40); WHITE BLOOD CELL COUNT 8.1 /CUMM (4.8-10.8)
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
--- NOTE | 2017-11-02 15:11 | ED PSYCHIATRIST/APRN CONSULT ---
Psychiatrist/WELLNESS ASSISTANT ED Consult Assessment and Plan: Case discussed with staff, who report that the patient remains upset about methadone taper. She has continued to endorse suicidal ideation. Patient seen at 12:47 PM. She was asleep but easily awakened. Feels fine. She is calm and polite. Affect is flat and withdrawn. Continues to feel depressed. Reports suicidal ideation. Denies homicidal ideation. Denies auditory and visual hallucinations and paranoid ideation. IMPRESSION: Slow progress. Continue present treatment plan. Continue bed search, as the patient continues to report suicidal ideation. Continue methadone taper by 5 mg daily as per protocol because of dirty urine.
[2017-11-03 08:19] VITALS: BP 126/64
== END 2017-11-03 13:00 | disposition other institution (70) ==
LOC: ERH 15:18
PROVIDERS: Physician Assistant
DX: R45.851 Suicidal ideations (principal); F14.10 Cocaine abuse, uncomplicated; F41.9 Anxiety disorder, unspecified; F32.9 Major depressive disorder, single episode, unspecified; G47.00 Insomnia, unspecified; F11.20 Opioid dependence, uncomplicated; F17.210 Nicotine dependence, cigarettes, uncomplicated
CPT/HCPCS: 80307; 81025; G0463; J1200; J1630